=== PATIENT | male | born 1960 | race Caucasian/White ===

== ENCOUNTER → 2017-05-20 10:18 | Outpatient (CLI) | payer MEDICARE, MEDICAID, BC, SELFPAY ==
[2017-05-20 13:38] LABS: PSA,Total - Annual Screen 0.96 ng/mL (0.00-4.00)
== END ==
PROVIDERS: Family Provider Family Medicine; PCP Family Medicine; Visit Provider Family Medicine
DX: Z12.5 Encounter for screening for malignant neoplasm of prostate (principal)
CPT/HCPCS: 36415; 84153; G0103

== ENCOUNTER → 2017-05-25 11:58 | Outpatient (CLI) | payer MEDICARE, MEDICAID, SELFPAY ==
--- NOTE | 2017-05-25 11:04 | US_ITS ---
STUDY: ULTRASOUND - URINARY BLADDER REASON FOR EXAM: Male, 56 years old. Incomplete bladder emptying. TECHNIQUE: Ultrasound evaluation of the urinary bladder was performed with real-time and static landers-scale imaging. COMPARISON: None. FINDINGS: There is no right UVJ calculus. There is a visualized right ureteral jet. There is no left UVJ calculus. There is a visualized left ureteral jet. The distended volume of the urinary bladder is 387 ml. The empty volume of the urinary bladder is 177 ml. The bladder wall is within normal limits. The bladder wall measures 3.5. There is no demonstrated bladder wall mass lesion. There are no demonstrated bladder calculi. US/Post Void Residual Bladder IMPRESSION: Moderate postvoid residual. Electronically Signed: Pranav Guerin MD at 7:03 EST , Service support ,
== END ==
PROVIDERS: Family Provider Family Medicine; PCP Family Medicine; Visit Provider Family Medicine
DX: R33.9 Retention of urine, unspecified (principal)
CPT/HCPCS: 51798

== ENCOUNTER → 2017-07-13 07:57 | Outpatient (CLI) | payer MEDICAID, BC, SELFPAY | PROVIDERS: Family Provider Family Medicine; PCP Family Medicine; Visit Provider Surgery | DX: Z00.00 Encounter for general adult medical examination without abnormal findings (principal) ==

== ENCOUNTER → 2017-08-24 16:42 | Outpatient (CLI) | payer MEDICARE, MEDICAID, SELFPAY ==
--- NOTE | 2017-08-24 16:40 | RAD_ITS ---
STUDY: X-RAY - LEFT KNEE REASON FOR EXAM: Left knee pain. TECHNIQUE: 3 view(s) of the knee. COMPARISON: None. FINDINGS: Normal visualized distal femur. Normal visualized proximal tibia and fibula. Normal proximal tibiofibular articulation. There is an incidental bone island in the medial aspect of the proximal tibial diametaphysis. Normal medial femorotibial compartment. Normal lateral femorotibial compartment. Normal patellofemoral articulation. There is a small joint effusion. RAD/Knee 3 Views IMPRESSION: Small joint effusion. Electronically Signed: Chance Oneil MD at 14:32 EDT Tel , Service support ,
--- NOTE | 2017-08-24 16:42 | DT_ITS ---
This patient was seen during an EMR downtime August 24, 2017 - August 31, 2017. This patient may have a combination of paper and electronic documentation or all paper documentation. All documentation is viewable within the e-chart portion of [facility] for each patient visit.
== END ==
PROVIDERS: Family Provider Family Medicine; PCP Family Medicine; Visit Provider Family Medicine
DX: M25.562 Pain in left knee (principal); M25.462 Effusion, left knee
CPT/HCPCS: 73562

== ENCOUNTER 2017-09-24 14:24 | Emergency (ER) | payer MEDICARE, MEDICAID, SELFPAY ==
[2017-09-24 14:24] VITALS: BP 105/75; PULSE 66; RESP 16; TEMP 36.6; O2SAT 98; BMI 27.3
--- NOTE | 2017-09-24 14:30 | RAD_ITS ---
STUDY: X-RAY - RIGHT FOOT CLINICAL: Male, 56 years old. Palpable lump along the medial aspect of the foot. TECHNIQUE: 4 view(s) of the foot. COMPARISON: None. FINDINGS: There is a plantar calcaneal spur. Normal visualized subtalar, talonavicular, calcaneocuboid, tarsal and tarsometatarsal articulations. Normal metatarsi. There is degenerative arthrosis of the metatarsophalangeal joint of the hallux . Normal tibial and fibular sesamoid bones. Normal interphalangeal joint of the great toe. Normal phalanges of the great toe. Normal second through fifth metatarsophalangeal joints. Normal interphalangeal joints and phalanges of the lesser toes. Soft tissue swelling. RAD/Foot min 3 Views IMPRESSION: Small plantar spur. Soft tissue swelling. Electronically Signed: Martín Escudero MD at 14:59 EDT Tel [phone], Service support ,
--- NOTE | 2017-09-24 15:28 | ED.VISSUMM ---
- ER Visit Summary Date of Service: 09/24/17 Chief Complaint: Right foot pain History of Present Illness: The patient is a [address] Hoyos. He reports he has pain on the medial side of his right foot that began approximately 2 weeks ago. No trauma. No fall, MVA, or change in activity. Describes a sharp, stabbing pain that is worsened by bending or walking. Is relieved by [place]. The pain is 4-10 at worst and is pain-free currently. No history of gout. Physical Examination: Vitals: Stable. Afebrile. General: Well-nourished and well-developed. Head: Normocephalic atraumatic. Neck: Supple, no lymphadenopathy. No JVD. Nontender. Cardiovascular: Regular rate and rhythm. No murmurs. Respiratory: No respiratory distress. Clear to auscultation bilaterally. Abdominal: Soft, nontender, nondistended, normal bowel sounds. No guarding, rebound, or peritoneal signs. Back: Nontender. Extremities: Over the middle third of the medial side of his first metatarsal there is a hard subcutaneous mass that is mildly tender to palpation. There is no erythema or warmth to suggest infection. He has no pain with movement of his first MTP joint. No pain with palpation of the joint. There is no overlying erythema or warmth here either.. Skin: Normal color, no rash. Neurologic: Alert and oriented ?3. Cranial nerves II through XII are intact. Normal strength and sensation. Psych: Normal affect. Test Results: Right foot x-ray shows chronic changes and no acute disease. Emergency Department Course and Treatment: Patient was treated with naproxen and is resting comfortably. Treatment Plan: Had a prolonged discussion with the patient at this time I do not have an explanation for his pain. This could be a gouty tophi. However, I do not think that steroids are in his best interest. He will be discharged on naproxen instructed follow-up Dr. Isaacs in 5-7 days for another exam. Return to the emergency department for any worsening symptoms. Disposition: To home in improved and stable condition. Impression: 1. Right foot pain, uncertain cause. This note was generated with [employer] software. It may contain incorrect words, spelling, and punctuation that were not noted in review of the chart prior to signing ED Disposition - Plan for ED Patient: Disposition: Home or Assisted Living Chief Complaint: Lower Extremity Injury Instructions: Treating Arthritis in the Foot Prescriptions: Naproxen [Naprosyn] 500 mg PO BID #14 tablet Referrals: Jonathan Hoyos MD [Primary Care Provider] - Scottie Isaacs DPM [STAFF PHYSICIAN] - 5-7 Days
[2017-09-24] MEDS: Naproxen 500 MG Tablet PO (15:44)
--- NOTE | 2017-09-24 15:45 | ED.RN ---
PT GIVEN WRITTEN AND VERBVAL DISCHARGE INSTRUCTIONS, AND EDUCATED ON HOME GOING PRESCRIPTIONS. PT VERBALIZES UNDERSTANDING. QUESTIONS ABOUT PT FOLLOW UP ADDRESSED. PT DENIES ANY FURTHER QUESTIONS. AMBULATES OUT OF DEPT WITH SPOUSE.
== END 2017-09-24 15:46 | disposition home or self-care (01) ==
LOC: ED 15:38
PROVIDERS: Emergency Provider Emergency Medicine; Family Provider Family Medicine; PCP Family Medicine
DX: M25.571 Pain in right ankle and joints of right foot (principal); I10 Essential (primary) hypertension; M19.90 Unspecified osteoarthritis, unspecified site; M54.9 Dorsalgia, unspecified; G89.29 Other chronic pain; Z79.891 Long term (current) use of opiate analgesic; Z79.899 Other long term (current) drug therapy; Z72.0 Tobacco use
CPT/HCPCS: 73630; 99283

== ENCOUNTER → 2017-10-23 10:14 | Outpatient (CLI) | payer MEDICARE, MEDICAID, SELFPAY ==
--- NOTE | 2017-10-23 10:45 | MRI_ITS ---
STUDY: MRI RIGHT FOREFOOT WITHOUT CONTRAST REASON FOR EXAM: Male, 57 years old. Painful lump at the first MTP joint TECHNIQUE: Standardized fat and water weighted pulse sequences were obtained in all 3 orthogonal planes. COMPARISON: X-ray September 24, 2017 FINDINGS: There is degenerative arthrosis of the metatarsophalangeal joint of the hallux. There is a lobular 1.5 x 0.9 cm fluid signal intensity mass consistent with cyst in the subcutaneous soft tissues on the medial aspect adjacent to the first metatarsal head neck junction, corresponding to the palpable abnormality. Normal tibial and fibular sesamoids, with normal sesamoids-first metatarsal articulations. Normal interphalangeal joint of the hallux. Normal proximal and distal phalanges of the great toe. Normal medial and lateral heads of the flexor hallucis brevis tendons. Normal flexor and extensor hallucis longus tendons. Normal second through fifth metatarsophalangeal (MTP) joints. Normal interphalangeal joints of the second through fifth toes. Normal proximal, middle and distal phalanges of the second through fifth toes. Normal first through fourth intermetatarsal spaces. Normal flexor and extensor tendons of the second through fifth toes. Normal visualized metatarsi. Normal intrinsic muscles of the forefoot. MRI/Lower Ext/No Jt/w/o IMPRESSION: Lobular cystic lesion suggesting ganglion proximal to the first MTP joint. No fracture. Electronically Signed: Constantino Sheffield MD at 12:08 EDT , Service support ,
== END ==
PROVIDERS: Family Provider Family Medicine; PCP Family Medicine; Visit Provider Podiatrist
DX: M70.871 Other soft tissue disorders related to use, overuse and pressure, right ankle and foot (principal); M79.9 Soft tissue disorder, unspecified; M79.671 Pain in right foot
CPT/HCPCS: 73718

== ENCOUNTER 2018-02-14 12:59 | Emergency (ER) | payer MEDICARE, MEDICAID, SELFPAY ==
[2018-02-14 12:59] VITALS: BP 143/82; PULSE 59; RESP 22; TEMP 36.7; O2SAT 100; BMI 30.7
--- NOTE | 2018-02-14 13:22 | ED.VISSUMM ---
- ER Visit Summary Date of Service: 02/14/18 Chief Complaint: Back pain History of Present Illness: The patient is a 57 M who presents with chronic back pain that has been getting worse over the past few days. Patient states he missed his recent appointment with his pain management physician and is unable to get his [place] prescription refilled until February. Patient denies any new injury. Patient denies any radiation of the pain. Patient denies any paresthesias or weakness. Patient denies any bowel or bladder changes. Physical Examination: Vital signs are stable. Patient is afebrile. Patient is in no acute distress. Musculoskeletal exam reveals tenderness of the lumbar spine and paraspinal muscles. There is no bony crepitance or step-off. There is no edema or ecchymosis. Range of motion was limited all motions of the lumbar spine secondary to pain. Strength 5/5 bilateral. There are no sensory deficits noted. The remaining physical exam is within normal limits. Emergency Department Course and Treatment: Patient drove himself to the emergency department and is unable to find a ride home. Therefore, I am unable to give him a dose of his [place] here. I offered the patient injection of Toradol but he did not want any injections. Patient was given a dose of Naprosyn here. Patient was instructed to use ice to the area. Patient was instructed to call his pain management physician tomorrow to see if he could get in earlier than his next appointment. Patient understood and was agreeable with the plan. All questions were answered. Disposition: Discharged home Impression: Chronic low back pain This note was generated with [employer] dictation software. It may contain incorrect words, spelling, and punctuation that were not noted in review of the chart prior to signing ED Disposition - Plan for ED Patient: Disposition: Home or Assisted Living Chief Complaint: Med Refill Diagnosis: Chronic low back pain Instructions: Med Refill Referrals: Jonathan Hoyos MD [Primary Care Provider] -
--- NOTE | 2018-02-14 13:27 | ED.DCSUM_ITS ---
- ER Visit Summary Date of Service: 02/14/18 Chief Complaint: Back pain History of Present Illness: The patient is a 57 M who presents with chronic back pain that has been getting worse over the past few days. Patient states he missed his recent appointment with his pain management physician and is unable to get his [place] prescription refilled until February. Patient denies any new injury. Patient denies any radiation of the pain. Patient denies any paresthesias or weakness. Patient denies any bowel or bladder changes. Physical Examination: Vital signs are stable. Patient is afebrile. Patient is in no acute distress. Musculoskeletal exam reveals tenderness of the lumbar spine and paraspinal muscles. There is no bony crepitance or step-off. There is no edema or ecchymosis. Range of motion was limited all motions of the lumbar spine secondary to pain. Strength 5/5 bilateral. There are no sensory deficits noted. The remaining physical exam is within normal limits. Emergency Department Course and Treatment: Patient drove himself to the emergency department and is unable to find a ride home. Therefore, I am unable to give him a dose of his [place] here. I offered the patient injection of Toradol but he did not want any injections. Patient was given a dose of Naprosyn here. Patient was instructed to use ice to the area. Patient was instructed to call his pain management physician tomorrow to see if he could get in earlier than his next appointment. Patient understood and was agreeable with the plan. All questions were answered. Disposition: Discharged home Impression: Chronic low back pain This note was generated with [employer] dictation software. It may contain incorrect words, spelling, and punctuation that were not noted in review of the chart prior to signing ED Disposition - Plan for ED Patient: Disposition: Home or Assisted Living Chief Complaint: Med Refill Diagnosis: Chronic low back pain Instructions: Med Refill Referrals: Jonathan Hoyos MD [Primary Care Provider] -
[2018-02-14] MEDS: Naproxen 500 MG Tablet PO (13:29)
[2018-02-14 13:47] VITALS: BP 124/77; PULSE 81; RESP 16; O2SAT 97
== END 2018-02-14 13:48 | disposition home or self-care (01) ==
LOC: ED 13:45
PROVIDERS: Emergency Provider Emergency Medicine; Family Provider Family Medicine; PCP Family Medicine
DX: M54.5 Low back pain (principal); G89.29 Other chronic pain; I10 Essential (primary) hypertension; Z79.899 Other long term (current) drug therapy; F17.200 Nicotine dependence, unspecified, uncomplicated
CPT/HCPCS: 99283

== ENCOUNTER 2018-05-08 18:03 | Emergency (ER) | payer MEDICARE, SELFPAY ==
[2018-05-08 18:05] VITALS: BP 90/55; PULSE 58; RESP 16; TEMP 36.4; O2SAT 99; BMI 27.3
[2018-05-08] MEDS: HYDROcodone Bitartrate/Apap 5/325 Tablet PO (18:43)
--- NOTE | 2018-05-08 18:53 | RAD_ITS ---
STUDY: X-RAY - RIGHT FOOT CLINICAL: Male, 57 years old. Right foot pain TECHNIQUE: 3 view(s) of the foot. COMPARISON: None. FINDINGS: Normal talus, calcaneus, and tarsal bones. Normal visualized subtalar, talonavicular, calcaneocuboid, tarsal and tarsometatarsal articulations. Normal metatarsi. There is degenerative arthrosis of the metatarsophalangeal joint of the hallux . Normal tibial and fibular sesamoid bones. Normal interphalangeal joint of the great toe. Normal phalanges of the great toe. Normal second through fifth metatarsophalangeal joints. Normal interphalangeal joints and phalanges of the lesser toes. The soft tissue structures are unremarkable. RAD/Foot min 3 Views IMPRESSION: No fracture malalignment. Degenerative changes of the first MTP joint. Electronically Signed: David Paredes MD at 19:18 EST , Service support ,
--- NOTE | 2018-05-08 19:25 | ED.VISSUMM ---
- ER Visit Summary Date of Service: 05/08/18 Chief Complaint: Right foot injury History of Present Illness: The patient is a 57 M he states he dropped a sofa on his foot while he was trying to move furniture. He was not wearing shoes at the time. He is complaining of pain to the first MTP joint of his right foot. He did take 800 mg of Motrin prior to arrival. Physical Examination: Vital signs in triage include a blood pressure of 90/55. At the time of my examination blood pressure is 116/74. Patient is sitting upright in bed no acute distress. Right lower extreme examination is significant for tenderness palpation of the MTP joint. There is mild edema. No erythema or ecchymosis. He has normal cap refill and sensation distally. There is no tenderness at the ankle or knee. Test Results: Right foot x-rays showed no fracture. Degenerative arthritis is noted at the first MTP joint. Emergency Department Course and Treatment: Patient was given 1 tab of [place] here. X-ray results are discussed with him. Jose wrap is applied. He will use Tylenol or ibuprofen at home for pain. Treatment Plan: [] Disposition: Discharge Impression: Crush injury right foot This note was generated with [employer] dictation software. It may contain incorrect words, spelling, and punctuation that were not noted in review of the chart prior to signing ED Disposition - Plan for ED Patient: Referrals: Glenn Parekh MD [Primary Care Provider] -
--- NOTE | 2018-05-08 19:26 | ED.DEP ---
ED Disposition - Plan for ED Patient: Disposition: Home or Assisted Living Instructions: ED Crush Injury Toe No Fx Referrals: Glenn Parekh MD [Primary Care Provider] - 1 Week if not improving
[2018-05-08 19:38] VITALS: RESP 18
== END 2018-05-08 19:39 | disposition home or self-care (01) ==
PROVIDERS: Emergency Provider Emergency Medicine; Family Provider Family Medicine; PCP Family Medicine
DX: S97.81XA Crushing injury of right foot, initial encounter (principal); W22.8XXA Striking against or struck by other objects, initial encounter; Y93.9 Activity, unspecified; Y92.9 Unspecified place or not applicable; M19.071 Primary osteoarthritis, right ankle and foot; I10 Essential (primary) hypertension; Z79.899 Other long term (current) drug therapy; Z87.891 Personal history of nicotine dependence
CPT/HCPCS: 73630; 99283

== ENCOUNTER 2018-12-10 05:20 | Inpatient (IN) | payer MEDICARE, SELFPAY ==
[2018-12-10] VITALS (39 sets, daily range): BP systolic 66–214; BP diastolic 35–98; PULSE 59–112; RESP 14–34; TEMP 35.5–38.3; O2SAT 65–100; BMI 28.5; BMI 27.3
[2018-12-10] MEDS: Etomidate 20 MG/10 ML Vial 30 MG IV (05:27)
[2018-12-10] MEDS: Succinylcholine Chloride 200 MG/10 ML Vial 120 MG IV (05:28)
--- NOTE | 2018-12-10 05:29 | ED.RN ---
120 MG SUCC GIVEN
--- NOTE | 2018-12-10 05:30 | ED.RN ---
patient unable to answer most questions about event. patient is post cardiac arrest information obtained from family
--- NOTE | 2018-12-10 05:39 | CT_ITS ---
We are attempting to reach an attending provider to discuss findings. An addendum with communication details will be sent when the communication is complete. STUDY: CT BRAIN WITHOUT CONTRAST REASON FOR EXAM: Male, 58 years old. Full arrest, combative RADIATION DOSAGE (If Supplied By Facility): CTDIvol = ( 44.99 ) mGy, DLP = ( 863.60 ) mGycm TECHNIQUE: Transaxial CT imaging of the brain was performed without administration of intravenous contrast material. Individualized dose optimization techniques were used for this CT. COMPARISON: No relevant priors. FINDINGS: Normal soft tissue structures. Normal calvarium. Partially imaged endotracheal tube. Mild effacement of sulcal and gyral pattern. Possible mild edema. Normal white matter tracts of the cerebral hemispheres. Normal basal ganglia and thalami. Normal brainstem. Normal cerebellum. There is no intracranial hemorrhage. There are no findings of an acute ischemic infarction. There is mucosal opacification most pronounced in the left sphenoid, frontal, and posterior ethmoid sinuses. No air-fluid levels. The bilateral mastoid air cells are clear. CT/Brain/Head without Contrast IMPRESSION: Possible mild edema. Possible anoxic brain injury. No acute hemorrhage or overt ischemic changes on submitted images. These findings were discussed on the telephone with Dr. Guthrie at 608 hrs. EST on 12/10/2018. Electronically Signed: Urvashi Arnold MD at 6:12 EDT , Service support ,
--- NOTE | 2018-12-10 05:40 | RAD_ITS ---
STUDY: X-RAY CHEST REASON FOR EXAM: Male, 58 years old. Endotracheal and enteric tube placement. TECHNIQUE: Single AP portable view of the chest. COMPARISON: None. FINDINGS: Endotracheal tube tip approximately 4.5 cm superior to the adamaris. The enteric tube courses inferior to the left diaphragm, its tip is not included or visualized. There are superimposed monitor leads. Diffuse bilateral vascular prominence, mild interstitial prominence, areas of hyperinflation. There is no demonstrated pleural abnormality. Normal size heart. Normal mediastinum and max. Normal visualized pulmonary arteries. Normal visualized aortic arch and descending thoracic aorta. Normal visualized thoracic spine. Normal visualized ribs, clavicles, and shoulders. There is no demonstrated abnormality of the visualized soft tissue structures of the upper abdomen. RAD/Chest 1 View (Portable) IMPRESSION: Probable vascular congestion. Possible underlying component of COPD. Lines appear in good position. Electronically Signed: Urvashi Arnold MD at 6:01 EDT , Service support ,
--- NOTE | 2018-12-10 05:40 | EKG12_ITS ---
Test Reason : STEMI Blood Pressure : / mmHG Vent. Rate : 098 BPM Atrial Rate : 098 BPM P-R Int : 146 ms QRS Dur : 088 ms QT Int : 296 ms P-R-T Axes : 030 064 063 degrees QTc Int : 377 ms Normal sinus rhythm ST elevation consider anterolateral injury or acute infarct ACUTE [place] / STEMI Abnormal ECG Confirmed by ROBERTO ANDERSON, EARL ([id number]), primer expeditor and drier RICHARD BRUNER ([id number]) on 12/13/2018 9:20:14 AM Referred By: Peter Vazquez Confirmed By:EARL MEJIA MD
[2018-12-10] MEDS: Propofol 10MG/Ml 1,000 MG/100 ML Bottle 5.6 MG CONT INF (05:50)
[2018-12-10 05:51] LABS: Absolute Lymphocyte Count 8.08 X10^3/uL (0.83-4.51); Absolute Neutrophil Count 8.8 X10^3/uL (2.0-7.7); Basophil# 0.22 X10^3/uL; Basophil% 1.1 % (0-1); Eosinophil# 0.63 X10^3/uL; Eosinophils% 3.3 % (0-5); Hematocrit 46.6 % (40-54); Hemoglobin 15.2 g/dL (13.0-16.5); Lymphocyte # 8.08 X10^3/ul (4.0); Lymphocyte % 42.1 % (19-41); Mean Corp Hgb Conc 32.6 g/dL (32-36); Mean Corpuscular Hgb 31.6 pg (27.0-32.0); Mean Corpuscular Volume 96.9 fL (80-94); Monocyte# 1.06 X10^3/uL; Monocyte% 5.5 % (0-10); NRBC Flagged by Analyzer 0 % (0-5); Neutrophil # 8.81 X10^3/uL (2.7-7.7); Neutrophil % 45.9 % (47-70); POSITIVE DIFFERENTIAL YES; POSITIVE MORPHOLOGY YES; Platelet Count 291 K/mm3 (150-450); RBC Distribution Width CV 13.1 % (11.6-14.6); RBC Distribution Width SD 47.5 fl (35.1-43.9); Red Blood Count 4.81 M/mm3 (4.6-6.2); White Blood Count 19.2 K/mm3 (4.4-11.0)
[2018-12-10] MEDS: TICAGRELOR 90 MG TABLET 180 MG GT (05:52)
[2018-12-10 05:53] LABS: Differential Indicated SCAN CRITERIA MET
[2018-12-10 05:56] LABS: Prothrombin Time (Protime)PT. 12.6 SECONDS (11.7-14.9)
[2018-12-10] MEDS: Heparin Injection (Vial) 5,000 UNIT/ML VIAL 4000 UNIT IV (06:10)
[2018-12-10 06:15] LABS: Differential Comment SCANNED; Reactive Lymphocyte 3+
[2018-12-10 06:18] LABS: Anion Gap 12 (5-15); BUN 19 mg/dL (7-18); BUN/Creat Ratio 12.1 RATIO (10-20); Calcium,Total 8.1 mg/dL (8.5-10.1); Chloride 110 mmol/L (98-107); Creatinine, Serum 1.57 mg/dL (0.70-1.30); EST Glomerular Filtration Rate 49 mL/min (>60); Est Glom Filt Rate - Afr Amer 59 mL/min (>60); Estimated Creatinine Clearance 55.29 ml/min; Glucose 239 mg/dL (74-106); Potassium 3.2 mmol/L (3.5-5.1); Sodium Level 141 mmol/L (136-145)
--- NOTE | 2018-12-10 06:30 | ED.DCSUM_ITS ---
- ER Visit Summary Date of Service: 12/10/18 Chief Complaint: Unresponsive History of Present Illness: The patient is a 58 M presenting per EMS after being found unresponsive. Per patient's he has been complaining of chest pain intermittently over the past couple of days. During sexual intercourse he complained of chest pain around 1130pm. She wanted to call EMS and he refused. They went to sleep. She states she later woke up with him having snoring respirations. EMS was called and rescue breathing was started. On their arrival he was in ventricular fibrillation and was shocked x1. No medications were given. On arrival to the ED, patient is breathing on his own and combative. Physical Examination: Blood pressure 214/98, heart rate 112, 98% with bagging respirations. Patient is afebrile. HEENT exam PERRL Neck is supple. Lungs are clear and equal bilaterally. Heart is regular rate and tachycardic Abdomen is soft nontender nondistended. Extremities are unremarkable. Skin is warm and diaphoretic Patient is combative and not following commands, moving all extremities Remainder of exam is unremarkable. Emergency Department Course and Treatment: EKG shows anterolateral ST elevation VT. Patient was intubated using RSI. He was given etomidate and succinylcholine. 7.5 ET tube was placed through the cords. Equal breath sounds bilaterally. Discussed with Dr. Vazquez and patient will be taken emergently to the [facility]. Due to his mental status and combativeness on arrival, CT head was obtained prior to [facility]. CT head shows possible mild edema. Possible anoxic brain injury. No acute hemorrhage or overt ischemic changes on submitted images. Patient was given Brilinta and heparin. Patient was taken to the [facility] per Dr. Vazquez. Disposition: Admission Impression: ST elevation VT, respiratory failure, possible anoxic brain injury This note was generated with [employer] dictation software. It may contain incorrect words, spelling, and punctuation that were not noted in review of the chart prior to signing ED Disposition - Plan for ED Patient: Referrals: Glenn Parekh MD [Primary Care Provider] -
[2018-12-10] MEDS: HEPARIN/D5w 25,000 UNITS 25,000 UNITS/250 ML IV.SOLN. 8 UNITS IV (07:02)
[2018-12-10 08:01] LABS: ACT Activated Clotting Time 241 sec (74-137)
[2018-12-10 08:01] LABS: ACT Activated Clotting Time 180 sec (74-137)
[2018-12-10 08:01] LABS: Base Excess -12 mmol/L (-2 to +2); Bicarbonate 16.1 mmol/L (22-26); Blood Gas Specimen Type ART; PO2 285 mmHG (75-100); SO2 100 % (95-99); Total Carbon Dioxide 17 mmol/L; pCO2 41.3 mmHg (35-45)
[2018-12-10 08:16] LABS: Bedside Glucose 206 mg/dL (70-110)
--- NOTE | 2018-12-10 08:33 | HP.PCM_ITS ---
Problem List (1) STEMI (ST elevation myocardial infarction) Status: Acute Qualifiers: Involved coronary artery: LAD coronary artery Qualified Code(s): I21.02 - ST elevation (STEMI) myocardial infarction involving left anterior descending coronary artery (2) Ventricular fibrillation Status: Acute (3) Metabolic acidosis Status: Acute (4) Metabolic encephalopathy Status: Acute History of Present Illness Date of Admission: 12/10/18 Chief Complaint: chest pain. The patient is a 58 year old M Presents after being found unresponsive. Earlier, patient was having chest pain over the preceding few days and then was having intercourse and was having chest pain around 1130. His advised EMS but he refused. Went to sleep and then she awoke to him having sonorous respirations. EMS was contacted and patient was found to be in atrial fibrillation and did receive a shock. Per ER documentation did not receive any additional medications. Patient was combative but breathing on his own but was intubated in the emergency room. Patient was taken to the [facility] as he was found to have ST elevation myocardial infarction and had drug-eluting stent placed to the LAD. Balloon pump was placed. Patient did undergo a emergent CAT scan for possible evaluation of stroke. It did show mild edema. Patient is unresponsive as he is intubated and sedated. No family is currently present. History is obtained through Dr. Vazquez as well as the emergency room documentation.[] Past Medical History Allergies No Known Allergies Allergy (Verified 12/10/18 05:27) Smoking Status: Heavy Smoker (>10/day) Tobacco Use: Cigarettes Review of Systems Comment: Patient intubated and sedated and on no prior documentation of any past medical history earlier documentation, therefore past medical history, past surgical history, family history, social history and review of systems are unobtainable at this time. VTE Information - Inpt Only VTE Present on Admission: No VTE Mechan Device Prophylaxis: SCD's VTE Pharm Prophylaxis ordered?: No Reason prophylaxis not ordered:: Procedure Not Indicated Patient Problems: Active and Suspected Problems STEMI (ST elevation myocardial infarction) (Acute) Ventricular fibrillation (Acute) Metabolic acidosis (Acute) Metabolic encephalopathy (Acute) - Physical Exam General: - - Intubated and sedated on the ventilator. HEENT: Atraumatic, Normocephalic, - - Narrowed pupils. No scleral icterus Oral: - - Tracheal tube in place Neck: No Nodes, Trachea Midline Lungs: Normal air movement, - - Course breath sounds bilaterally Cardiovascular: Regular rate, Regular Rhythm, - - Loon pump auscultated Abdomen: Soft, Non Tender, Non-Distended, - - balloon pump auscultated Extremities: No edema, No Calf Tenderness, Diminished Peripheral Pulses Skin: - - Macular rash slightly raised in the groin bilaterally Musculoskeletal: No Tenderness to Palpation of Joints or Extremities, No Muscle Wasting Neurological: Deep Tendon Reflexes 2+/4 and Symmetrical, - - No clonus Vital Signs Temp Pulse Resp BP Pulse Ox 35.5 C L 74 20 H 178/98 H 95 12/10/18 05:20 12/10/18 06:00 12/10/18 06:00 12/10/18 06:00 12/10/18 06:45 Oxygen Flow Rate (L/min) 15 Oxygen Delivery Method Ambu-Bag Weight: 92.8 kg Body Mass Index (BMI) 28.5 Finger Stick Blood Glucose 206 Laboratory Tests Past 24 Hrs 12/10/18 12/10/18 12/10/18 05:40 05:40 05:40 WBC 19.2 H RBC 4.81 Hgb 15.2 Hct 46.6 MCV 96.9 H MCH 31.6 MCHC 32.6 RDW Std Deviation 47.5 H RDW Coeff of [place] 13.1 Plt Count 291 MPV 12.0 Immature Gran % (Auto) 2.100 H Neut % (Auto) 45.9 L Lymph % (Auto) 42.1 H Morrow % (Auto) 5.5 Eos % (Auto) 3.3 Baso % (Auto) 1.1 H Absolute Neuts (auto) 8.8 H Absolute Lymphs (auto) 8.08 H Nucleated RBC % 0 Differential Comment SCANNED Reactive Lymphocytes 3+ PT 12.6 INR 1.0 APTT 27.0 Activated Clotting Time Specimen Type pH Bicarbonate Actual POC Total CO2 Base Excess O2 Saturation ABG pCO2 ABG pO2 Sodium 141 Potassium 3.2 L Chloride 110 H Carbon Dioxide 19.0 L Anion Gap 12 BUN 19 H Creatinine 1.57 H Estim Creat Clear Calc 55.29 Est GFR (MDRD) Af Amer 59 L Est GFR (MDRD) Non-Af 49 L BUN/Creatinine Ratio 12.1 Glucose 239 H Calcium 8.1 L Troponin I 0.617 H* 12/10/18 12/10/18 12/10/18 06:18 06:55 07:02 WBC RBC Hgb Hct MCV MCH MCHC RDW Std Deviation RDW Coeff of [place] Plt Count MPV Immature Gran % (Auto) Neut % (Auto) Lymph % (Auto) Morrow % (Auto) Eos % (Auto) Baso % (Auto) Absolute Neuts (auto) Absolute Lymphs (auto) Nucleated RBC % Differential Comment Reactive Lymphocytes PT INR APTT Activated Clotting Time 180 H 241 H Specimen Type ART pH 7.20 L Bicarbonate Actual 16.1 L POC Total CO2 17 Base Excess -12 L O2 Saturation 100 H ABG pCO2 41.3 ABG pO2 285 H Sodium Potassium Chloride Carbon Dioxide Anion Gap BUN Creatinine Estim Creat Clear Calc Est GFR (MDRD) Af Amer Est GFR (MDRD) Non-Af BUN/Creatinine Ratio Glucose Calcium Troponin I POC Glucose 12/10/18 05:38 POC Glucose 206 H Initial EKG showed segment ST elevation in anterior and lateral leads that V2, V3 and V4. Assessment/Plan All Active Problems STEMI (ST elevation myocardial infarction) (Acute) Ventricular fibrillation (Acute) Metabolic acidosis (Acute) Metabolic encephalopathy (Acute) 1. STEMI * Status post drug-eluting stent to the LAD * Cardiology following * On balloon pump * Patient did receive heparin, Integrilin, aspirin Brilinta * We will continue with aspirin, Brilinta and atorvastatin * Patient continue with balloon pump for now. Discussed with Dr. Vazquez, plan is to continue with the balloon pump until the * Patient will need to have lifelong tobacco cessation * Heparin drip while the balloon pump is in place 2. Acute respiratory failure * Intubated in the emergency room. * Vent management per critical care medicine * Patient will be on propofol but will also add fentanyl as patient seems to need extra sedation. This is very important as patient was earlier confused and to maintain the balloon pump so that it is not compromised. 3. Metabolic encephalopathy * Head CT showed some mild edema that could be an anoxic encephalopathy * Is unclear how long the patient was down the patient was noted to have sonorous respirations if * Patient did receive some CPR in the field by family, is unclear how effective that CPR was and patient did receive a shock by EMS * Patient will need repeat imaging to assess the degree of edema if it still persists at a later point preferably when he is more hemodynamically stable, however, if patient's condition does deteriorate then that not be performed much sooner. 4. VTE prophylaxis: Patient is anticoagulated but given the balloon pump and being critically ill will also add SCDs. 5. Groin rash * May be contact dermatitis from the Betadine/chlorhexidine that was used to sterilize his groin for the heart catheterization. The area has been demarcated with a marker. Will monitor but to hold off on antibiotics at this time. Code Visit Inpatient E&M: [id number] Init Hosp L3
--- NOTE | 2018-12-10 08:35 | EKG12_ITS ---
Test Reason : AM Blood Pressure : / mmHG Vent. Rate : 071 BPM Atrial Rate : 071 BPM P-R Int : 138 ms QRS Dur : 086 ms QT Int : 480 ms P-R-T Axes : 023 078 114 degrees QTc Int : 521 ms Normal sinus rhythm Anteroseptal infarct , age undetermined T wave abnormality, consider lateral ischemia Prolonged QT Abnormal ECG Confirmed by SILVIA ANDERSON, MIKKI ([id number]), assistant film editor RICHARD BRUNER ([id number]) on 12/15/2018 11:09:03 AM Referred By: Peter Vzaquez Confirmed By:MIKKI VEGA MD
--- NOTE | 2018-12-10 08:35 | ECHOD_ITS ---
Reason For Study: CAD/ASHD Procedure This was a 2D Doppler, Color Flow transthoracic echocardiogram. Exam performed portable in ICU/CCU. Left Ventricle Normal size and thickness. The estimated ejection fraction is 35-40 %. Anterio-Basal: Akinetic. Basal anteroseptal: Akinetic. Mid-Anterior : Akinetic. Right Ventricle Normal size and thickness. Normal systolic function. Atria Normal left atrium. Normal right atrium. Normal atrial septum. Mitral Valve The mitral valve is structurally normal. No prolapse or stenosis seen. Tricuspid Valve Normal tricuspid valve. Trivial tricuspid valve insufficiency. Right ventricular systolic pressure estimated to be 22 mmHg. Aortic Valve Trisinus/trileaflet aortic valve. Normal aortic valve. Pulmonic Valve Normal pulmonic valve. Great Vessels Normal aortic root. Normal arch. The inferior vena cava is dilated. No collapse of the inferior vena cava. Pericardium/Pleural No pericardial effusion. MMode/2D Measurements & Calculations LVIDd: 4.3 cm IVSd: 1.1 cm LA dimension: 3.6 cm LVIDs: 3.0 cm LVPWd: 1.1 cm FS: 29.5 % LAV(MOD-bp): 52.8 ml LVAd ap4: 29.4 cm2 SV(MOD-sp4): 38.9 ml LAV(MOD-bp) Indexed: 24.8 ml/m2 EDV(MOD-sp4): 89.7 ml LAV(MOD-sp2): 47.6 ml EDV(sp4-el): 91.3 ml LAV(MOD-sp4): 50.4 ml LVAs ap4: 21.9 cm2 ESV(MOD-sp4): 50.7 ml ESV(sp4-el): 52.9 ml EF(MOD-sp4): 43.4 % EF(sp4-el): 42.1 % SV(sp4-el): 38.5 ml LA A4 area: 19.4 cm2 RA A4 area: 15.9 cm2 Time Measurements MV dec time: 0.18 sec Doppler Measurements & Calculations MV E max derrick: 70.2 cm/sec Lat Peak E' Derrick: 7.9 cm/sec Med Peak E' Derrick: 4.9 cm/sec MV A max derrick: 51.3 cm/sec E/E' lat: 8.8 E/E' med: 14.3 MV E/A: 1.4 MV V2 max: 69.6 cm/sec MV P1/2t max derrick: 68.5 cm/sec Ao V2 max: 101.1 cm/sec MV max P.9 mmHg MV P1/2t: 88.8 msec Ao max P.1 mmHg MV V2 mean: 34.8 cm/sec Ao V2 mean: 66.5 cm/sec MV mean P.58 mmHg MV dec slope: 225.9 cm/sec2 Ao mean P.1 mmHg MV V2 VTI: 21.2 cm MVA(P1/2t): 2.5 cm2 Ao V2 VTI: 15.9 cm LV V1 max: 89.1 cm/sec PA V2 max: 57.8 cm/sec TR max derrick: 206.1 cm/sec LV V1 max P.2 mmHg TR max P.0 mmHg LV V1 mean P.4 mmHg LV V1 mean: 53.0 cm/sec LV V1 VTI: 16.8 cm Interpretation Summary The estimated ejection fraction is 35-40 %. Trivial tricuspid valve insufficiency. Right ventricular systolic pressure estimated to be 22 mmHg. Anterio-Basal: Akinetic. Basal anteroseptal: Akinetic. Mid-Anterior : Akinetic. There is no comparison study available. Ordering Physician: Peter Vazquez Referring Physician: IVONNE EDMONDSON Performed By: Zheng Sinclair RCS
--- NOTE | 2018-12-10 08:40 | RAD_ITS ---
STUDY: X-RAY CHEST REASON FOR EXAM: Male, 58 years old. Shortness of breath/dyspnea. TECHNIQUE: Single AP portable view of the chest. COMPARISON: Comparison is made with prior study dated December 10, 2018 at 5:41 AM. FINDINGS: An endotracheal tube is in situ. The tip is at 4.2 cm proximal to the adamaris. An enteric tube is seen with the tip below the left hemidiaphragm. EKG electrodes are seen. Persistent vascular congestion and mild degree of CHF. There has been essentially no change. There is no demonstrated pleural abnormality. Normal size heart. Normal mediastinum and max. Normal visualized pulmonary arteries. Normal visualized aortic arch and descending thoracic aorta. Normal visualized thoracic spine. Normal visualized ribs, clavicles, and shoulders. There is no demonstrated abnormality of the visualized soft tissue structures of the upper abdomen. RAD/Chest 1 View (Portable) IMPRESSION: Stable examination demonstrating mild degree of vascular congestion. The support tubes are unchanged. Electronically Signed: Martín Escudero, at 14:08 EDT , Service support ,
[2018-12-10] MEDS: fentaNYL drip 100 ML 2.5 MCG IV (09:00)
[2018-12-10 09:33] LABS: Partial Thromboplast Time 168.1 Seconds (24.1-36.2)
--- NOTE | 2018-12-10 10:00 | EKG12_ITS ---
Test Reason : AM Blood Pressure : / mmHG Vent. Rate : 055 BPM Atrial Rate : 110 BPM P-R Int : 150 ms QRS Dur : 088 ms QT Int : 498 ms P-R-T Axes : 051 073 109 degrees QTc Int : 476 ms Sinus bradycardia Anteroseptal infarct , age undetermined T wave abnormality, consider lateral ischemia Abnormal ECG Confirmed by SILVIA ANDERSON, MIKKI ([id number]), department editor RICHARD BRUNER ([id number]) on 12/15/2018 11:07:49 AM Referred By: Peter Vazquez Confirmed By:MIKKI VEGA MD
[2018-12-10] MEDS: 0.9% Normal Saline 1,000 ML 150 ML IV (10:05)
[2018-12-10 10:10] LABS: Allen Test POS; Base Excess -9 mmol/L (-2 to +2); Bicarbonate 17.4 mmol/L (22-26); Blood Gas Specimen Type ART; FI02 40; Mode A-C; O2 Delivery Device Vent; PEEP 5; PO2 98 mmHG (75-100); RR 14; SITE L Radial; SO2 97 % (95-99); Time Given 955; Total Carbon Dioxide 18 mmol/L; Vt 450; pCO2 36.2 mmHg (35-45); pH 7.29 (7.35-7.45)
[2018-12-10] MEDS: Chlorhexidine 15 ML PO ×2 (10:45→21:35)
--- NOTE | 2018-12-10 10:52 | CASEMGMT ---
SW participated in ICU rounds this morning, present, tearful. SW spoke w/ after, support given. SW remains available for support to and family. MEENA Charles
[2018-12-10] MEDS: Propofol 10MG/Ml 1,000 MG/100 ML Bottle 13.9 MG CONT INF (11:11)
--- NOTE | 2018-12-10 11:27 | CASEMGMT ---
RN CM Assessment Presentation: STEMI Intro role of CM and purpose of RN CM assessment to patient's . Pt is on IABP, Ventilatory support. Demographics, PCP and Pharmacy verified. Per , pt was very independent prior to event. Questions answered for , son and brother re: ICU plan of care; emotional support given. Discussed CM/SW will be available for support and discharge planning. PCP: Dr. Farmer Specialists: Dr. Vazquez Preferred Pharmacy: [facility] [place] Insurance: Clew. Prescription Benefit: yes LNOK: Rachel Living Arrangements: Lives in two story home, one step into home. Per , pt was independent, did not have any care needs. Transportation: pt drives DME: none prior HHC: none prior DC PLAN: undetermined. Family updated CM/SW will be availabe for support and for dc planning. Aisha MOLINA RN ACM
--- NOTE | 2018-12-10 12:02 | RAD_ITS ---
STUDY: X-RAY CHEST REASON FOR EXAM: Male, 58 years old. Chest pain TECHNIQUE: Single AP portable view of the chest. COMPARISON: Earlier today FINDINGS: Stable appearance of the ET and NG tubes. EKG leads overlie the chest. Left-sided PICC line tip in the distal SVC. Persistent interstitial edema without significant interval change since the previous study. There is no demonstrated pleural abnormality. Normal size heart. Normal mediastinum and max. Normal visualized pulmonary arteries. Normal visualized aortic arch and descending thoracic aorta. Normal visualized thoracic spine. Normal visualized ribs, clavicles, and shoulders. There is no demonstrated abnormality of the visualized soft tissue structures of the upper abdomen. RAD/CXR for Line Placement IMPRESSION: No interval change, stable appearance of the previously noted support lines and tubes. Left-sided PICC line tip in the distal SVC Electronically Signed: Chris Harrell MD at 13:01 EDT , Service support ,
[2018-12-10 14:32] LABS: Anion Gap 4 (5-15); BUN 16 mg/dL (7-18); BUN/Creat Ratio 15.7 RATIO (10-20); Calcium,Total 7.1 mg/dL (8.5-10.1); Chloride 117 mmol/L (98-107); Creatinine, Serum 1.02 mg/dL (0.70-1.30); EST Glomerular Filtration Rate 80 mL/min (>60); Est Glom Filt Rate - Afr Amer 97 mL/min (>60); Glucose 94 mg/dL (74-106); Potassium 4.3 mmol/L (3.5-5.1); Sodium Level 142 mmol/L (136-145)
--- NOTE | 2018-12-10 14:53 | CHAPLAIN ---
Type of Pastoral Visit _x__ Initial Visit ___ Follow-up Visit ___ On-call Visit ___ General Patient Visit ___ Spiritual Assessment ___ Family Conference ___ Bereavement ___ Rapid Response ___ Code Blue ___ Other (describe below) Pastoral Care Referral From ___ Patient _x__ Family ___ Nurse ___ Physician ___ Process Inspector ___ Light Technician ___ Other (describe below) Sacrament/Intervention ___ Active listening ___ Anointing ___ Orthodox ___ Bereavement ___ Communion ___ Lisa exploration ___ ___ Life review _x__ Prayer ___ Reconciliation ___ Sacrament of Sick ___ Supportive presence ___ Wedding _x__ Other (describe below) Pastoral Comments patient is sedated after procedure; met with family who welcomed support and prayer on behalf of patient;
--- NOTE | 2018-12-10 15:05 | PCM.CON.CC ---
Problem List (1) Anoxic brain injury Status: Acute (2) Tobacco abuse Status: Chronic (3) Upper GI hemorrhage Status: Suspected (4) STEMI (ST elevation myocardial infarction) Status: Acute Qualifiers: Involved coronary artery: LAD coronary artery Qualified Code(s): I21.02 - ST elevation (STEMI) myocardial infarction involving left anterior descending coronary artery (5) Ventricular fibrillation Status: Acute (6) Metabolic acidosis Status: Acute (7) Metabolic encephalopathy Status: Acute Reason for Consult Date of Consultation: 12/10/18 - Late entry Reason for Consultation: Respiratory failure History of Present Illness: The patient is a 58 year old M, with no reported past medical history other than tobacco abuse, who presented [facility] on 12/10/2018 secondary to being found unresponsive. Patient reportedly had complained of chest pain overnight during physical activity and patient's went to call EMS, but he refused. Patient reportedly went to sleep and the reports waking up with him having agonal respirations. EMS was called. On arrival, patient reportedly was in V. fib and was shocked x1. No medications were required. Reportedly, patient was noted to be breathing on his own and combative on presentation to the ER. In the ER, patient was noted to be hypertensive at 214/98 and tachycardic at 112 bpm. No fevers were noted. EKG showed an anterolateral ST elevation [place]. CT of the head showed some minor edema, but no bleeding. Patient was intubated and taken emergently to Speech Pathologist. In the Speech Pathologist, patient reportedly had a mid LAD lesion, but otherwise vasculature appeared acceptable. Patient reportedly had some severe depressed heart function, so an intra-aortic balloon pump was laced. Patient was then transferred to the intensive care unit for further monitoring. Patient arrived in the intensive care unit at approximately 8:30 AM. Patient was placed on fentanyl and propofol. Patient was noted to have some bloody secretions from the OG. Patient also had some difficulty with vent synchrony. ABG was obtained showing metabolic acidosis. Potassium has been replaced. Patient did have some periods of decreased blood pressure, so Levophed was ordered, but this is not needed to be initiated at this time. Patient has had periods of aggression with attempts to sit up and move his right leg. By time patient had arrived at the intensive care unit, patient had Sarthak been bolused with heparin and was placed on a heparin drip. Patient had a PICC line placed secondary to concerns for possible bleeding complications. Patient's reports that he is a heavy smoker. Patient does not drink alcohol or use drugs. Patient reportedly had been noting some blood in his stool recently. Patient unable to provide a review of systems. with limited review history Past Medical History Past Medical History (Chronic Problems): Chronic Problems Tobacco abuse (Chronic) Allergies povidone-iodine [From Betadine] Allergy (Verified 12/10/18 13:06) Rash soap [From Betadine] Allergy (Verified 12/10/18 13:06) Rash Smoking Status: Heavy Smoker (>10/day) Tobacco Use: Cigarettes Review of Systems Unable to obtain accurate/complete ROS d/t: Intubated and sedated Patient Problems: Active and Suspected Problems STEMI (ST elevation myocardial infarction) (Acute) Ventricular fibrillation (Acute) Metabolic acidosis (Acute) Metabolic encephalopathy (Acute) Anoxic brain injury (Acute) Upper GI hemorrhage (Suspected) Objective: All imaging was personally reviewed. Chest x-rays show supportive devices in appropriate position. No infiltrates are appreciated. Echocardiogram completed after heart catheterization showed an EF of 35 to 40% with an akinetic anterior basal and basilar anteroseptal area. Patient's right ventricular systolic pressure was estimated at 22 mmHg with no significant change in RV diameter. Patient has persistent with a metabolic acidosis for most of the morning. BMP in the afternoon showed recovery of potassium, improvement in renal function and acidosis. - Physical Exam General: - - Intubated and sedated. Fair vent synchrony. Appears older than stated age. HEENT: Atraumatic, PERRLA, EOMI, Normocephalic, - - Scleral injection without icterus Oral: Moist Mucosa, No Gingival or Mucosal Lesions/ Ulcerations Neck: Supple, No JVD, No Nodes, Trachea Midline Lungs: No rhonchi, No wheeze, No rales, Diminished, - - No dullness to percussion anteriorly. Cardiovascular: Regular Rhythm, Normal S1, Normal S2, No murmurs, Bradycardic, No rub noted, No Gallop Abdomen: Bowel Sounds Present, Soft, Non Tender, Distended - Slightly Extremities: No clubbing, No cyanosis, No edema, Capillary Refill Less than 3 Seconds Skin: No rashes, No breakdown Musculoskeletal: No Tenderness to Palpation of Joints or Extremities Lymphatic: No Cervical, Supraclavicular, or Inguinal Adenopathy Neurological: Cranial nerves II-XII grossly intact, Motor Exam 5/5 strength throughout, - - Spontaneous movement of all 4 extremities. Positive gag and cough reflex is noted. Psych/Mental Status: Flat Affect Vital Signs Temp Pulse Resp BP Pulse Ox 37.7 C H 63 14 76/42 L 100 12/10/18 15:00 12/10/18 15:00 12/10/18 15:00 12/10/18 15:00 12/10/18 15:00 Oxygen Flow Rate (L/min) 15 Oxygen Delivery Method Mechanical Ventilator Weight: 92.8 kg Body Mass Index (BMI) 27.3 Finger Stick Blood Glucose 206 Intake and Output for Last 24 Hours 12/08/18 12/09/18 12/10/18 23:59 23:59 23:59 Intake Total 179.96 / 179.96 Output Total 585 / 585 Balance -405.04 / -405.04 Laboratory Tests Past 24 Hrs 12/10/18 12/10/18 12/10/18 05:40 05:40 05:40 WBC 19.2 H RBC 4.81 Hgb 15.2 Hct 46.6 MCV 96.9 H MCH 31.6 MCHC 32.6 RDW Std Deviation 47.5 H RDW Coeff of [place] 13.1 Plt Count 291 MPV 12.0 Immature Gran % (Auto) 2.100 H Neut % (Auto) 45.9 L Lymph % (Auto) 42.1 H [place] % (Auto) 5.5 Eos % (Auto) 3.3 Baso % (Auto) 1.1 H Absolute Neuts (auto) 8.8 H Absolute Lymphs (auto) 8.08 H Nucleated RBC % 0 Differential Comment SCANNED Reactive Lymphocytes 3+ PT 12.6 INR 1.0 APTT 27.0 Activated Clotting Time Specimen Type Sample Site pH Bicarbonate Actual POC Total CO2 Base Excess O2 Saturation O2 % ABG pCO2 ABG pO2 Randal Test Respiration Rate O2 Delivery Device Minute Volume Vent Mode Tidal Volume POC PEEP Blood Gas Notified Whom Blood Gas Notified Time Sodium 141 Potassium 3.2 L Chloride 110 H Carbon Dioxide 19.0 L Anion Gap 12 BUN 19 H Creatinine 1.57 H Estim Creat Clear Calc 55.29 Est GFR (MDRD) Af Amer 59 L Est GFR (MDRD) Non-Af 49 L BUN/Creatinine Ratio 12.1 Glucose 239 H Calcium 8.1 L Troponin I 0.617 H* 12/10/18 12/10/18 12/10/18 06:18 06:55 07:02 WBC RBC Hgb Hct MCV MCH MCHC RDW Std Deviation RDW Coeff of [place] Plt Count MPV Immature Gran % (Auto) Neut % (Auto) Lymph % (Auto) [place] % (Auto) Eos % (Auto) Baso % (Auto) Absolute Neuts (auto) Absolute Lymphs (auto) Nucleated RBC % Differential Comment Reactive Lymphocytes PT INR APTT Activated Clotting Time 180 H 241 H Specimen Type ART Sample Site pH 7.20 L Bicarbonate Actual 16.1 L POC Total CO2 17 Base Excess -12 L O2 Saturation 100 H O2 % ABG pCO2 41.3 ABG pO2 285 H Randal Test Respiration Rate O2 Delivery Device Minute Volume Vent Mode Tidal Volume POC PEEP Blood Gas Notified Whom Blood Gas Notified Time Sodium Potassium Chloride Carbon Dioxide Anion Gap BUN Creatinine Estim Creat Clear Calc Est GFR (MDRD) Af Amer Est GFR (MDRD) Non-Af BUN/Creatinine Ratio Glucose Calcium Troponin I 12/10/18 12/10/18 12/10/18 09:00 09:20 10:04 WBC RBC Hgb Hct MCV MCH MCHC RDW Std Deviation RDW Coeff of [place] Plt Count MPV Immature Gran % (Auto) Neut % (Auto) Lymph % (Auto) [place] % (Auto) Eos % (Auto) Baso % (Auto) Absolute Neuts (auto) Absolute Lymphs (auto) Nucleated RBC % Differential Comment Reactive Lymphocytes PT INR APTT 168.1 H* Activated Clotting Time Specimen Type ART Sample Site L Radial pH 7.29 L Bicarbonate Actual 17.4 L POC Total CO2 18 Base Excess -9 L O2 Saturation 97 O2 % 40 ABG pCO2 36.2 ABG pO2 98 Randal Test POS Respiration Rate 14 O2 Delivery Device Vent Minute Volume 14.00 Vent Mode A-C Tidal Volume 450 POC PEEP 5 Blood Gas Notified Whom ICU MD Blood Gas Notified Time 955 Sodium Potassium Chloride Carbon Dioxide Anion Gap BUN Creatinine Estim Creat Clear Calc Est GFR (MDRD) Af Amer Est GFR (MDRD) Non-Af BUN/Creatinine Ratio Glucose Calcium Troponin I 60.000 H* 12/10/18 12/10/18 13:00 13:00 WBC RBC Hgb Hct MCV MCH MCHC RDW Std Deviation RDW Coeff of [place] Plt Count MPV Immature Gran % (Auto) Neut % (Auto) Lymph % (Auto) [place] % (Auto) Eos % (Auto) Baso % (Auto) Absolute Neuts (auto) Absolute Lymphs (auto) Nucleated RBC % Differential Comment Reactive Lymphocytes PT INR APTT Activated Clotting Time Specimen Type Sample Site pH Bicarbonate Actual POC Total CO2 Base Excess O2 Saturation O2 % ABG pCO2 ABG pO2 Randal Test Respiration Rate O2 Delivery Device Minute Volume Vent Mode Tidal Volume POC PEEP Blood Gas Notified Whom Blood Gas Notified Time Sodium 142 Potassium 4.3 Chloride 117 H Carbon Dioxide 21.0 Anion Gap 4 L BUN 16 Creatinine 1.02 Estim Creat Clear Calc 85.10 Est GFR (MDRD) Af Amer 97 Est GFR (MDRD) Non-Af 80 BUN/Creatinine Ratio 15.7 Glucose 94 Calcium 7.1 L Troponin I 85.000 H* POC Glucose 12/10/18 05:38 POC Glucose 206 H Clinical Impression(s) from Imaging Studies Brain CT 12/10/18 05:39 IMPRESSION: Possible mild edema. Possible anoxic brain injury. No acute hemorrhage or overt ischemic changes on submitted images. These findings were discussed on the telephone with Dr. Guthrie at 608 hrs. EST on 12/10/2018. Electronically Signed: Urvashi Arnold MD at 6:12 EDT , Service support , ADDENDUM: 12/10/18 0620 IMPRESSION: Possible mild edema. Possible anoxic brain injury. No acute hemorrhage or overt ischemic changes on submitted images. These findings were discussed on the telephone with Dr. Guthrie at 608 hrs. EST on 12/10/2018. N.B. : The above information has been verbally conveyed by Urvashi Arnold MD to Shantelle Guthrie MD, MD, on 12/10/2018 06:13:33 (ET). Electronically Signed: Urvashi Arnold MD at 6:12 EDT , Service support , Chest X-Ray 12/10/18 05:40 IMPRESSION: Probable vascular congestion. Possible underlying component of COPD. Lines appear in good position. Electronically Signed: Urvashi Arnold MD at 6:01 EDT , Service support , Chest X-Ray 12/10/18 08:40 IMPRESSION: Stable examination demonstrating mild degree of vascular congestion. The support tubes are unchanged. Electronically Signed: Martín Kota, at 14:08 EDT , Service support , Chest X-Ray 12/10/18 12:02 IMPRESSION: No interval change, stable appearance of the previously noted support lines and tubes. Left-sided PICC line tip in the distal SVC Electronically Signed: Chris Harrell MD at 13:01 EDT , Service support , Assessment/Plan Active and Suspected Problems STEMI (ST elevation myocardial infarction) (Acute) Ventricular fibrillation (Acute) Metabolic acidosis (Acute) Metabolic encephalopathy (Acute) Anoxic brain injury (Acute) Upper GI hemorrhage (Suspected) RECOMMENDATIONS: 1. Replete potassium as necessary 2. Continue antiplatelet therapy and heparin for stent/AIBP 3. Wean oxygen as tolerated 4. Initiate pressors if necessary to keep map greater than 65 5. Spontaneous breathing and awakening trials per protocol 6. Protonix IV twice daily secondary to upper GI bleed 7. Possibly start tube feeds tomorrow IMPRESSIONS: 1. Ventricular fibrillation arrest secondary to ST elevation NH Concerns for coagulopathy given patient's presentation of upper GI bleed. Patient has had cardiac intervention and is on appropriate medications at this time. Patient does have an intra-aortic balloon pump at one-to-one augmentation. Patient will need heparin drip as long this IABP is in place. Blood pressures have been marginal, so pressors may be required. Significant reduction in cardiac function noted 2. Acute respiratory failure Unclear etiology at this time. Patient does have an extensive smoking history and likely has an element of underlying COPD. No pulmonary function tests are available for review. Patient also had a V. fib arrest and has received CPR. Patient may also have an element of alveolar hemorrhage. Patient is oxygenating well at this time. Continue with propofol and fentanyl as needed for vent synchrony. Spontaneous awakening and breathing trials per protocol. 3. Acute upper GI bleed Clinical suspicion for stress gastritis given presentation. Patient's bleeding appears to be improving with Protonix through the day. Continue with Protonix for now. If patient becomes hypotensive, H&H would be indicated and possible transfusion. Hold on any EGD given patient's acute condition. Patient was found to have a decreased mental status, so aspiration pneumonia would be a consideration. No significant infiltrate noted on chest x-ray at this time. Likely start antibiotics if infiltrate were to be noted. 4. Metabolic encephalopathy/possible anoxic encephalopathy CT scan in the ER did show some mild edema and patient was noted to have a decreased mental status on presentation. Patient is currently on propofol and fentanyl to help with vent synchrony. We will continue to monitor. Potassium has been repleted. 5. Groin rash/tobacco abuse/poor history/unclear primary care Complicates care, management, recovery and prognosis. Clinical suspicion for groin rash secondary to prepping for heart catheterization. Patient should be encouraged for complete smoking cessation. Outpatient pulmonary function test for evaluation of COPD would be appropriate. Patient will be placed on a bowel regimen. TIME: 90 minutes of critical care time spent addressing patient's possible anoxic brain injury, acute respiratory failure, upper GI bleed, intra-aortic balloon pump, ST elevation NH, review of all data and collaboration with care team (8:30 AM to 3:30 PM) Code Visit Procedures: 25331 Critial Care Addl 30 Min [id number]: [id number] Critical care first hour
--- NOTE | 2018-12-10 15:17 | CASEMGMT ---
RN CM Note. Call received from Kalyani FortuneAKESTEBAN Correspondence Renew Clerk giving name and call back information if she is needed for dc planning. Devika SCHMIDT with [facility]. Aisha MOLINA RN ACM
[2018-12-10] MEDS: fentaNYL drip 100 ML 15 MCG IV (15:43)
[2018-12-10] MEDS: Propofol 10MG/Ml 1,000 MG/100 ML Bottle 16.7 MG CONT INF (15:43)
[2018-12-10] MEDS: Heparin Injection (Vial) 5,000 UNIT/ML VIAL IV ×2 (16:04→23:08)
[2018-12-10 16:46] LABS: Bedside Glucose 81 mg/dL (70-110)
[2018-12-10 17:30] LABS: Bedside Glucose 84 mg/dL (70-110)
[2018-12-10 17:36] LABS: Anion Gap 2 (5-15); BUN 16 mg/dL (7-18); BUN/Creat Ratio 12.6 RATIO (10-20); Chloride 117 mmol/L (98-107); Creatinine, Serum 1.27 mg/dL (0.70-1.30); EST Glomerular Filtration Rate 62 mL/min (>60); Est Glom Filt Rate - Afr Amer 75 mL/min (>60); Estimated Creatinine Clearance 68.35 ml/min; Glucose 85 mg/dL (74-106); Potassium 5.1 mmol/L (3.5-5.1); Sodium Level 142 mmol/L (136-145)
[2018-12-10] MEDS: TICAGRELOR 90 MG TABLET GT (18:19)
[2018-12-10] MEDS: Propofol 10MG/Ml 1,000 MG/100 ML Bottle 25.1 MG CONT INF ×2 (19:54→23:40)
[2018-12-10] MEDS: fentaNYL drip 100 ML 17.5 MCG IV (21:33)
[2018-12-10] MEDS: 0.9% NaCl Peripheral Flush Adult/Peds IV (21:45)
[2018-12-10 22:01] LABS: Partial Thromboplast Time 40.9 Seconds (24.1-36.2)
[2018-12-10] MEDS: 0.9% NaCl IVPB Med Flush (250 mL) 15 ML IV (23:09)
[2018-12-10 23:51] LABS: Bedside Glucose 90 mg/dL (70-110)
[2018-12-11] VITALS (41 sets, daily range): BP systolic 49–138; BP diastolic 22–84; PULSE 56–100; RESP 14–31; TEMP 37.7–39.7; O2SAT 89–100
[2018-12-11] MEDS: Propofol 10MG/Ml 1,000 MG/100 ML Bottle 25.1 MG CONT INF ×2 (03:09→05:31)
[2018-12-11] MEDS: fentaNYL drip 100 ML 17.5 MCG IV ×4 (03:10→21:25)
[2018-12-11 05:02] LABS: Hematocrit 40.3 % (40-54); Hemoglobin 13.1 g/dL (13.0-16.5); Mean Corp Hgb Conc 32.5 g/dL (32-36); Mean Corpuscular Hgb 31.3 pg (27.0-32.0); Mean Corpuscular Volume 96.2 fL (80-94); Mean Platelet Vol. 11.4 fl (6.2-12.0); Platelet Count 179 K/mm3 (150-450); RBC Distribution Width CV 13.9 % (11.6-14.6); RBC Distribution Width SD 49.1 fl (35.1-43.9); Red Blood Count 4.19 M/mm3 (4.6-6.2); White Blood Count 14.3 K/mm3 (4.4-11.0)
[2018-12-11 05:11] LABS: Partial Thromboplast Time 57.1 Seconds (24.1-36.2)
[2018-12-11 05:26] LABS: ALB/GLOB Ratio 0.9 RATIO (0.9-2.4); AST(SGOT) 107 U/L (15-37); Alanine Aminotransfer ALT/SGPT 58 U/L (16-61); Albumin, Serum 2.5 g/dL (3.2-5.0); Alkaline Phosphatase 74 U/L (45-117); Anion Gap 6 (5-15); BUN 13 mg/dL (7-18); BUN/Creat Ratio 11.5 RATIO (10-20); Calcium,Total 7.2 mg/dL (8.5-10.1); Chloride 116 mmol/L (98-107); Creatinine, Serum 1.13 mg/dL (0.70-1.30); EST Glomerular Filtration Rate 71 mL/min (>60); Est Glom Filt Rate - Afr Amer 86 mL/min (>60); Estimated Creatinine Clearance 76.82 ml/min; Globulin 2.7 g/dL (2.2-4.2); Glucose 101 mg/dL (74-106); Potassium 3.8 mmol/L (3.5-5.1); Protein, Total 5.2 g/dL (6.4-8.2); Sodium Level 145 mmol/L (136-145); Thyroid Stim Hormone (TSH) 1.26 uIU/mL (0.358-3.74)
[2018-12-11] MEDS: CHLORHEXIDINE GLUC 2% CLOTH 1 EACH TOWELETTE TOPICAL ×2 (05:31→21:09)
[2018-12-11] MEDS: 0.9% NaCl Peripheral Flush Adult/Peds IV (05:33)
[2018-12-11 05:36] LABS: Bedside Glucose 102 mg/dL (70-110)
--- NOTE | 2018-12-11 05:55 | RAD_ITS ---
STUDY: X-RAY CHEST REASON FOR EXAM: Male, 58 years old. Verification of balloon placement. TECHNIQUE: Single AP portable view of the chest. COMPARISON: None. FINDINGS: Aortic balloon pump with catheter tip over the left main bronchus inferior to the aortic arch seen similarly on previous exam. Left-sided PICC line is stable with catheter tip over the cavoatrial junction/right atrium. Endotracheal tube tip approximately 5.3 cm superior to the adamaris, enteric tube tip in distal sidehole of the gastric fundus. There are superimposed monitor leads. Vague interstitial pattern, improved aeration in the right upper lung. There is no demonstrated pleural abnormality. Normal size heart. Normal mediastinum and max. Normal visualized pulmonary arteries. Normal visualized aortic arch and descending thoracic aorta. Normal visualized thoracic spine. Normal visualized ribs, clavicles, and shoulders. There is no demonstrated abnormality of the visualized soft tissue structures of the upper abdomen. RAD/Chest 1 View (Portable) IMPRESSION: Lines as above. Improved aeration, decrease of interstitial opacification particularly in the right upper lung. Electronically Signed: Urvashi Arnold MD at 6:13 EDT , Service support ,
--- NOTE | 2018-12-11 07:28 | PCM.PN.INT ---
Subjective: Patient did okay overnight. Patient did have some marginal blood pressures overnight, but Levophed did not have to be initiated. Patient had significant agitation this morning with spontaneous awakening trial, so spontaneous breathing trial was not completed. Nursing has reported some thick endotracheal secretions. No bleeding has been reported clinically by nursing. Objective: Chest x-ray was personally reviewed and shows appropriate position of supportive devices and minimal infiltrate. Patient does have an air bronchogram in the right max General: - - Intubated and sedated. Good vent synchrony. Appears older than stated age. HEENT: Atraumatic, PERRLA, EOMI, Normocephalic, - - Slight scleral injection without icterus Oral: Moist Mucosa, No Gingival or Mucosal Lesions/ Ulcerations Neck: Supple, No JVD, No Nodes, Trachea Midline Lungs: No rhonchi, No wheeze, No rales, Diminished, - - Symmetric expansion. Cardiovascular: Regular rate, Regular Rhythm, Normal S1, Normal S2, No murmurs, No rub noted, No Gallop Abdomen: Bowel Sounds Present, Soft, Non Tender, Distended - Slightly Extremities: No clubbing, No cyanosis, Edema Skin: No rashes Musculoskeletal: No Tenderness to Palpation of Joints or Extremities Lymphatic: No Cervical, Supraclavicular, or Inguinal Adenopathy Neurological: Cranial nerves II-XII grossly intact, Neuro grossly intact, Motor Exam 5/5 strength throughout Psych/Mental Status: Flat Affect, Impulsive Vital Signs Temp Pulse Resp BP Pulse Ox 37.7 C H 67 14 78/52 L 100 12/11/18 07:00 12/11/18 07:00 12/11/18 07:00 12/11/18 07:00 12/11/18 07:00 Oxygen Flow Rate (L/min) 40 Oxygen Delivery Method Mechanical Ventilator Weight: 77.3 kg Body Mass Index (BMI) 27.3 Finger Stick Blood Glucose 206 Intake and Output for Last 24 Hours 12/09/18 12/10/18 12/11/18 23:59 23:59 23:59 Intake Total 1988.64 / 2013.79 394.73 / 394.73 Output Total 1166 / 1166 276 / 276 Balance 823.64 / 848.79 118.73 / 118.73 Labs (Last 48 Hours) 12/10/18 12/10/18 12/10/18 05:38 05:40 05:40 WBC 19.2 H RBC 4.81 Hgb 15.2 Hct 46.6 MCV 96.9 H MCH 31.6 MCHC 32.6 RDW Std Deviation 47.5 H RDW Coeff of [place] 13.1 Plt Count 291 MPV 12.0 Immature Gran % (Auto) 2.100 H Neut % (Auto) 45.9 L Lymph % (Auto) 42.1 H [place] % (Auto) 5.5 Eos % (Auto) 3.3 Baso % (Auto) 1.1 H Absolute Neuts (auto) 8.8 H Absolute Lymphs (auto) 8.08 H Nucleated RBC % 0 Differential Comment SCANNED Reactive Lymphocytes 3+ PT 12.6 INR 1.0 APTT 27.0 Activated Clotting Time Specimen Type Sample Site pH Bicarbonate Actual POC Total CO2 Base Excess O2 Saturation O2 % ABG pCO2 ABG pO2 Randal Test Respiration Rate O2 Delivery Device Minute Volume Vent Mode Tidal Volume POC PEEP Blood Gas Notified Whom Blood Gas Notified Time Sodium Potassium Chloride Carbon Dioxide Anion Gap BUN Creatinine Estim Creat Clear Calc Est GFR (MDRD) Af Amer Est GFR (MDRD) Non-Af BUN/Creatinine Ratio Glucose Calcium Total Bilirubin AST ALT Alkaline Phosphatase Troponin I Total Protein Albumin Globulin Albumin/Globulin Ratio TSH POC Glucose 206 H 12/10/18 12/10/18 12/10/18 05:40 06:18 06:55 WBC RBC Hgb Hct MCV MCH MCHC RDW Std Deviation RDW Coeff of [place] Plt Count MPV Immature Gran % (Auto) Neut % (Auto) Lymph % (Auto) [place] % (Auto) Eos % (Auto) Baso % (Auto) Absolute Neuts (auto) Absolute Lymphs (auto) Nucleated RBC % Differential Comment Reactive Lymphocytes PT INR APTT Activated Clotting Time 180 H 241 H Specimen Type Sample Site pH Bicarbonate Actual POC Total CO2 Base Excess O2 Saturation O2 % ABG pCO2 ABG pO2 Randal Test Respiration Rate O2 Delivery Device Minute Volume Vent Mode Tidal Volume POC PEEP Blood Gas Notified Whom Blood Gas Notified Time Sodium 141 Potassium 3.2 L Chloride 110 H Carbon Dioxide 19.0 L Anion Gap 12 BUN 19 H Creatinine 1.57 H Estim Creat Clear Calc 55.29 Est GFR (MDRD) Af Amer 59 L Est GFR (MDRD) Non-Af 49 L BUN/Creatinine Ratio 12.1 Glucose 239 H Calcium 8.1 L Total Bilirubin AST ALT Alkaline Phosphatase Troponin I 0.617 H* Total Protein Albumin Globulin Albumin/Globulin Ratio TSH POC Glucose 12/10/18 12/10/18 12/10/18 07:02 09:00 09:20 WBC RBC Hgb Hct MCV MCH MCHC RDW Std Deviation RDW Coeff of [place] Plt Count MPV Immature Gran % (Auto) Neut % (Auto) Lymph % (Auto) [place] % (Auto) Eos % (Auto) Baso % (Auto) Absolute Neuts (auto) Absolute Lymphs (auto) Nucleated RBC % Differential Comment Reactive Lymphocytes PT INR APTT 168.1 H* Activated Clotting Time Specimen Type ART Sample Site pH 7.20 L Bicarbonate Actual 16.1 L POC Total CO2 17 Base Excess -12 L O2 Saturation 100 H O2 % ABG pCO2 41.3 ABG pO2 285 H Randal Test Respiration Rate O2 Delivery Device Minute Volume Vent Mode Tidal Volume POC PEEP Blood Gas Notified Whom Blood Gas Notified Time Sodium Potassium Chloride Carbon Dioxide Anion Gap BUN Creatinine Estim Creat Clear Calc Est GFR (MDRD) Af Amer Est GFR (MDRD) Non-Af BUN/Creatinine Ratio Glucose Calcium Total Bilirubin AST ALT Alkaline Phosphatase Troponin I 60.000 H* Total Protein Albumin Globulin Albumin/Globulin Ratio TSH POC Glucose 12/10/18 12/10/18 12/10/18 10:04 12:30 13:00 WBC RBC Hgb Hct MCV MCH MCHC RDW Std Deviation RDW Coeff of [place] Plt Count MPV Immature Gran % (Auto) Neut % (Auto) Lymph % (Auto) [place] % (Auto) Eos % (Auto) Baso % (Auto) Absolute Neuts (auto) Absolute Lymphs (auto) Nucleated RBC % Differential Comment Reactive Lymphocytes PT INR APTT Activated Clotting Time Specimen Type ART Sample Site L Radial pH 7.29 L Bicarbonate Actual 17.4 L POC Total CO2 18 Base Excess -9 L O2 Saturation 97 O2 % 40 ABG pCO2 36.2 ABG pO2 98 Randal Test POS Respiration Rate 14 O2 Delivery Device Vent Minute Volume 14.00 Vent Mode A-C Tidal Volume 450 POC PEEP 5 Blood Gas Notified Whom ICU MD Blood Gas Notified Time 955 Sodium 142 Potassium 4.3 Chloride 117 H Carbon Dioxide 21.0 Anion Gap 4 L BUN 16 Creatinine 1.02 Estim Creat Clear Calc 85.10 Est GFR (MDRD) Af Amer 97 Est GFR (MDRD) Non-Af 80 BUN/Creatinine Ratio 15.7 Glucose 94 Calcium 7.1 L Total Bilirubin AST ALT Alkaline Phosphatase Troponin I Total Protein Albumin Globulin Albumin/Globulin Ratio [facility] POC Glucose 81 12/10/18 12/10/18 12/10/18 13:00 15:05 16:10 WBC RBC Hgb Hct MCV MCH MCHC RDW Std Deviation RDW Coeff of [place] Plt Count MPV Immature Gran % (Auto) Neut % (Auto) Lymph % (Auto) [place] % (Auto) Eos % (Auto) Baso % (Auto) Absolute Neuts (auto) Absolute Lymphs (auto) Nucleated RBC % Differential Comment Reactive Lymphocytes PT INR APTT 35.0 Activated Clotting Time Specimen Type Sample Site pH Bicarbonate Actual POC Total CO2 Base Excess O2 Saturation O2 % ABG pCO2 ABG pO2 Randal Test Respiration Rate O2 Delivery Device Minute Volume Vent Mode Tidal Volume POC PEEP Blood Gas Notified Whom Blood Gas Notified Time Sodium 142 Potassium 5.1 Chloride 117 H Carbon Dioxide 23.0 Anion Gap 2 L BUN 16 Creatinine 1.27 Estim Creat Clear Calc 68.35 Est GFR (MDRD) Af Amer 75 Est GFR (MDRD) Non-Af 62 BUN/Creatinine Ratio 12.6 Glucose 85 Calcium 7.0 L Total Bilirubin AST ALT Alkaline Phosphatase Troponin I 85.000 H* Total Protein Albumin Globulin Albumin/Globulin Ratio [facility] POC Glucose 12/10/18 12/10/18 12/10/18 17:21 21:45 23:30 WBC RBC Hgb Hct MCV MCH MCHC RDW Std Deviation RDW Coeff of [place] Plt Count MPV Immature Gran % (Auto) Neut % (Auto) Lymph % (Auto) [place] % (Auto) Eos % (Auto) Baso % (Auto) Absolute Neuts (auto) Absolute Lymphs (auto) Nucleated RBC % Differential Comment Reactive Lymphocytes PT INR APTT 40.9 H Activated Clotting Time Specimen Type Sample Site pH Bicarbonate Actual POC Total CO2 Base Excess O2 Saturation O2 % ABG pCO2 ABG pO2 Randal Test Respiration Rate O2 Delivery Device Minute Volume Vent Mode Tidal Volume POC PEEP Blood Gas Notified Whom Blood Gas Notified Time Sodium Potassium Chloride Carbon Dioxide Anion Gap BUN Creatinine Estim Creat Clear Calc Est GFR (MDRD) Af Amer Est GFR (MDRD) Non-Af BUN/Creatinine Ratio Glucose Calcium Total Bilirubin AST ALT Alkaline Phosphatase Troponin I Total Protein Albumin Globulin Albumin/Globulin Ratio [facility] POC Glucose 84 90 09/12/11/18 12/11/18 04:45 04:45 04:45 WBC 14.3 H RBC 4.19 L Hgb 13.1 Hct 40.3 MCV 96.2 H MCH 31.3 MCHC 32.5 RDW Std Deviation 49.1 H RDW Coeff of [place] 13.9 Plt Count 179 MPV 11.4 Immature Gran % (Auto) Neut % (Auto) Lymph % (Auto) [place] % (Auto) Eos % (Auto) Baso % (Auto) Absolute Neuts (auto) Absolute Lymphs (auto) Nucleated RBC % Differential Comment Reactive Lymphocytes PT INR APTT 57.1 H Activated Clotting Time Specimen Type Sample Site pH Bicarbonate Actual POC Total CO2 Base Excess O2 Saturation O2 % ABG pCO2 ABG pO2 Randal Test Respiration Rate O2 Delivery Device Minute Volume Vent Mode Tidal Volume POC PEEP Blood Gas Notified Whom Blood Gas Notified Time Sodium 145 Potassium 3.8 Chloride 116 H Carbon Dioxide 23.0 Anion Gap 6 BUN 13 Creatinine 1.13 Estim Creat Clear Calc 76.82 Est GFR (MDRD) Af Amer 86 Est GFR (MDRD) Non-Af 71 BUN/Creatinine Ratio 11.5 Glucose 101 Calcium 7.2 L Total Bilirubin 0.60 AST 107 H ALT 58 Alkaline Phosphatase 74 Troponin I Total Protein 5.2 L Albumin 2.5 L Globulin 2.7 Albumin/Globulin Ratio 0.9 TSH 1.26 POC Glucose 12/11/18 05:30 WBC RBC Hgb Hct MCV MCH MCHC RDW Std Deviation RDW Coeff of [place] Plt Count MPV Immature Gran % (Auto) Neut % (Auto) Lymph % (Auto) [place] % (Auto) Eos % (Auto) Baso % (Auto) Absolute Neuts (auto) Absolute Lymphs (auto) Nucleated RBC % Differential Comment Reactive Lymphocytes PT INR APTT Activated Clotting Time Specimen Type Sample Site pH Bicarbonate Actual POC Total CO2 Base Excess O2 Saturation O2 % ABG pCO2 ABG pO2 Randal Test Respiration Rate O2 Delivery Device Minute Volume Vent Mode Tidal Volume POC PEEP Blood Gas Notified Whom Blood Gas Notified Time Sodium Potassium Chloride Carbon Dioxide Anion Gap BUN Creatinine Estim Creat Clear Calc Est GFR (MDRD) Af Amer Est GFR (MDRD) Non-Af BUN/Creatinine Ratio Glucose Calcium Total Bilirubin AST ALT Alkaline Phosphatase Troponin I Total Protein Albumin Globulin Albumin/Globulin Ratio TSH POC Glucose 102 Clinical Impression(s) from Imaging Studies Chest X-Ray 12/10/18 08:40 IMPRESSION: Stable examination demonstrating mild degree of vascular congestion. The support tubes are unchanged. Electronically Signed: Martín Kota, at 14:08 EDT , Service support , Chest X-Ray 12/10/18 12:02 IMPRESSION: No interval change, stable appearance of the previously noted support lines and tubes. Left-sided PICC line tip in the distal SVC Electronically Signed: Chris Harrell MD at 13:01 EDT , Service support , Chest X-Ray 12/11/18 05:55 IMPRESSION: Lines as above. Improved aeration, decrease of interstitial opacification particularly in the right upper lung. Electronically Signed: Urvashi Arnold MD at 6:13 EDT , Service support , Medical Necessity - Tobacco Use Smoking Status: Heavy Smoker (>10/day) Tobacco Use: Cigarettes Assessment/Plan All Active Problems STEMI (ST elevation myocardial infarction) (Acute) Ventricular fibrillation (Acute) Metabolic acidosis (Acute) Metabolic encephalopathy (Acute) Anoxic brain injury (Acute) RECOMMENDATIONS: 1. Replete potassium as necessary 2. Continue antiplatelet therapy and heparin for stent/AIBP 3. Wean oxygen as tolerated 4. Discontinue Levophed off the MAR. Can be reordered if necessary 5. Spontaneous breathing and awakening trials per protocol 6. Continue Protonix. Okay to start tube feeds 7. Transition to Precedex therapy IMPRESSIONS: 1. Ventricular fibrillation arrest secondary to ST elevation [place] Concerns for coagulopathy given patient's presentation of upper GI bleed. Patient has had cardiac intervention and is on appropriate medications at this time. Patient does have an intra-aortic balloon pump at one-to-one augmentation. Patient will need heparin drip as long this IABP is in place. Blood pressures have been marginal, so pressors may be required. Patient is having improving urine output. Will discontinue Levophed for now. Significant reduction in cardiac function noted on recent echocardiogram 2. Acute respiratory failure Unclear etiology at this time. Patient does have an extensive smoking history and likely has an element of underlying COPD. No pulmonary function tests are available for review. Patient also had a V. fib arrest and has received CPR. Patient may also have an element of alveolar hemorrhage. Patient is oxygenating well at this time. Will attempt transition from propofol to Precedex therapy to facilitate spontaneous breathing trials. Spontaneous awakening and breathing trials per protocol. 3. Acute upper GI bleed Clinical suspicion for stress gastritis given presentation. Patient's bleeding appears to be improving with Protonix through the day. Continue with Protonix for now. Chin H has remained stable. No indication for transfusion at this time. Hold on any EGD given patient's acute condition. Patient was found to have a decreased mental status, so aspiration pneumonia would be a consideration. Secretions much improved from OG. Will attempt tube feeds later today. 4. Metabolic encephalopathy/possible anoxic encephalopathy CT scan in the ER did show some mild edema and patient was noted to have a decreased mental status on presentation. Patient is currently on propofol and fentanyl to help with vent synchrony. This will be transitioned over to Precedex. Patient has had spontaneous purposeful movements. We will continue to monitor. Potassium has been repleted. 5. Groin rash/tobacco abuse/poor history/unclear primary care Complicates care, management, recovery and prognosis. Clinical suspicion for groin rash secondary to prepping for heart catheterization. Patient should be encouraged for complete smoking cessation. Outpatient pulmonary function test for evaluation of COPD would be appropriate. Patient will be placed on a bowel regimen. TIME: 33 minutes of critical care time spent addressing patient's possible anoxic brain injury, acute respiratory failure, upper GI bleed, intra-aortic balloon pump, ST elevation [place], review of all data and collaboration with care team (5:50 AM to 7:35 AM) Code Visit 9xxxx: [id number] Critical care first hour
[2018-12-11] MEDS: Aspirin 81 MG TAB.CHEW GT (08:07)
--- NOTE | 2018-12-11 09:13 | CM.UR ---
Participated in interdisciplinary rounds. Brother present for rounds. Patient remains on vent with IABP in place. discharge plans TBD. Case mgmt will continue to follow for discharge planning. El Maciel RN, CCM.
[2018-12-11] MEDS: LORazepam 2 MG/ML Syringe IV (09:15)
[2018-12-11] MEDS: Senna/Docusate Sodium 1 Tablet 2 TABLET PO (09:49)
[2018-12-11] MEDS: TICAGRELOR 90 MG TABLET GT ×2 (09:49→21:08)
[2018-12-11] MEDS: Chlorhexidine 15 ML PO ×2 (10:27→21:14)
[2018-12-11 12:01] LABS: Bedside Glucose 117 mg/dL (70-110)
[2018-12-11 12:12] LABS: Partial Thromboplast Time 50.4 Seconds (24.1-36.2)
--- NOTE | 2018-12-11 12:27 | PN_ITS ---
Patient Problems: Active and Suspected Problems STEMI (ST elevation myocardial infarction) (Acute) Ventricular fibrillation (Acute) Metabolic acidosis (Acute) Metabolic encephalopathy (Acute) Anoxic brain injury (Acute) Upper GI hemorrhage (Suspected) Subjective: Agitation. Switched Precedex from propofol. Vitals/I&O's: Vital Signs Temp Pulse Resp BP Pulse Ox 38.9 C H 61 18 103/47 L 98 12/11/18 12:00 12/11/18 12:00 12/11/18 12:00 12/11/18 12:00 12/11/18 12:00 Oxygen Flow Rate (L/min) 40 Oxygen Delivery Method Mechanical Ventilator Weight: 77.3 kg Body Mass Index (BMI) 27.3 Finger Stick Blood Glucose 206 Intake and Output for Last 24 Hours 12/09/18 12/10/18 12/11/18 23:59 23:59 23:59 Intake Total 1988.64 / 2013. 677.61 / 677.61 Output Total 1166 / 1166 426 / 426 Balance 823.64 / 848.79 251.61 / 251.61 General: - - intubated and sedated HEENT: Atraumatic, Normocephalic Oral: - - ETT and OG in place. Neck: No Nodes, Thyroid Normal Size and Texture Lungs: Normal air movement, - - coarse breath sounds bilaterally. Cardiovascular: Regular rate, Regular Rhythm, - - balloon pump ascultated. Abdomen: Bowel Sounds Present, Soft, Non Tender, Non-Distended Extremities: No edema, No Calf Tenderness, Diminished Peripheral Pulses Skin: No rashes, No breakdown Musculoskeletal: No Muscle Wasting Neurological: - - no clonus Microbiology Past 72 Hours 12/11/18 02:00 Sputum, Induced/[place] Gram Stain - Final Laboratory Results 12/10/18 12:30: POC Glucose 81 12/10/18 13:00: Sodium 142, Potassium 4.3, Chloride 117 H, Carbon Dioxide 21.0, Anion Gap 4 L, BUN 16, Creatinine 1.02, Estim Creat Clear Calc 85.10, Est GFR (MDRD) Af Amer 97, Est GFR (MDRD) Non-Af 80, BUN/Creatinine Ratio 15.7, Glucose 94, Calcium 7.1 L 12/10/18 13:00: Troponin I 85.000 H* 12/10/18 15:05: APTT 35.0 12/10/18 16:10: Sodium 142, Potassium 5.1, Chloride 117 H, Carbon Dioxide 23.0, Anion Gap 2 L, BUN 16, Creatinine 1.27, Estim Creat Clear Calc 68.35, Est GFR (MDRD) Af Amer 75, Est GFR (MDRD) Non-Af 62, BUN/Creatinine Ratio 12.6, Glucose 85, Calcium 7.0 L 12/10/18 17:21: POC Glucose 84 12/10/18 21:45: APTT 40.9 H 12/10/18 23:30: POC Glucose 90 12/11/18 04:45: WBC 14.3 H, RBC 4.19 L, Hgb 13.1, Hct 40.3, MCV 96.2 H, MCH 31.3, MCHC 32.5, RDW Std Deviation 49.1 H, RDW Coeff of [place] 13.9, Plt Count 179, MPV 11.4 12/11/18 04:45: Sodium 145, Potassium 3.8, Chloride 116 H, Carbon Dioxide 23.0, Anion Gap 6, BUN 13, Creatinine 1.13, Estim Creat Clear Calc 76.82, Est GFR (MDRD) Af Amer 86, Est GFR (MDRD) Non-Af 71, BUN/Creatinine Ratio 11.5, Glucose 101, Calcium 7.2 L, Total Bilirubin 0.60, AST 107 H, ALT 58, Alkaline Phosphatase 74, Total Protein 5.2 L, Albumin 2.5 L, Globulin 2.7, Albumin/Globulin Ratio 0.9, TSH 1.26 12/11/18 04:45: APTT 57.1 H 12/11/18 05:30: POC Glucose 102 12/11/18 11:50: APTT 50.4 H 12/11/18 11:52: POC Glucose 117 H Current Medications Acetaminophen (Tylenol) 650 mg PO Q6H PRN PRN PRN Reason: Mild Pain (0-2/10) Acetaminophen (Tylenol) 650 mg RECTAL Q4H PRN PRN PRN Reason: Mild Pain (1-3)/Temp > 100.7 F Aspirin (Aspirin, Baby) 81 mg GT DAILY@0800 [facility] Last Admin: 12/11/18 08:07 Dose: 81 mg Documented by: Atorvastatin Calcium (Lipitor) 80 mg PO QHS [facility] Last Admin: 12/10/18 21:35 Dose: Not Given Documented by: Atropine Sulfate () 0.5 mg IV UD PRN PRN Reason: HR <50 bpm Chlorhexidine Gluconate () 15 ml PO BID [facility] Last Admin: 12/11/18 10:27 Dose: 15 ml Documented by: Chlorhexidine Gluconate () 1 each TOPICAL DAILY [facility] Last Admin: 12/11/18 05:31 Dose: 1 each Documented by: Dextrose (D50w Syringe) 0 gm IV X1 PRN; Protocol PRN Reason: Hypoglycemia Diazepam (Valium) 5 mg PO Q6H PRN PRN PRN Reason: BACK SPASMS/ANXIETY Glucagon () 1 mg IM .X1 PRN PRN Reason: Hypoglycemia Heparin Sodium (Beef Lung) (Heparin 500 Unit/5 Ml (100/Ml)) 500 unit IV UD PRN PRN Reason: HEPARIN FLUSH Heparin Sodium (Beef Lung) () 50 units IV UD PRN PRN Reason: HEPARIN FLUSH Heparin Sodium (Porcine) (Heparin Na) 0 unit IV UD PRN; Protocol Last Admin: 12/10/18 23:08 Dose: 1,000 unit Documented by: Heparin Sodium/Sodium Chloride () 2,000 units IV UD [facility] Last Admin: 12/11/18 09:37 Dose: Not Given Documented by: Propofol (Diprivan) 1,000 mg in 100 mls @ 5.568 mls/hr CONT INF .Q12H [facility]; Protocol Last Titration: 12/11/18 10:00 Dose: 0 mcg/kg/min, 0 mls/hr Documented by: Heparin Sodium/Dextrose () 25,000 units in 250 mls @ 10 mls/hr IV .Q25H [facility]; Protocol Last Admin: 12/11/18 11:15 Dose: Not Given Documented by: Fentanyl () 100 mls @ 2.5 mls/hr IV UD [facility]; Protocol Last Admin: 12/11/18 09:47 Dose: 175 mcg/hr, 17.5 mls/hr Documented by: Pantoprazole Sodium 40 mg/ (Sodium Chloride) 110 mls @ 330 mls/hr IV Q12 [facility] Last Infusion: 12/11/18 11:33 Dose: Infused Documented by: Sodium Chloride () 250 mls @ 15 mls/hr IV .[id number] PRN PRN Reason: SALINE FLUSH Last Admin: 12/10/18 23:09 Dose: 15 mls/hr Documented by: Dexmedetomidine HCl 400 mcg/ (Sodium Chloride) 100 mls @ 28.988 mls/hr CONT INF .Q3H27M [facility]; Protocol Last Admin: 12/11/18 11:12 Dose: 1.5 mcg/kg/hr, 29 mls/hr Documented by: Enteral Nutritional Formula (Vital Af 1.2 Brent Liquid) 1,000 mls @ 60 mls/hr GT .[id number] [facility] Insulin Human Lispro (Humalog Kwikpen (Bkc)) 0 unit SC Q6 [facility]; Protocol Last Admin: 12/11/18 05:32 Dose: Not Given Documented by: Labetalol HCl (Trandate) 5 mg IV X1 PRN PRN Reason: SBP > 160 when pulling sheath Lisinopril (Zestril) 5 mg GT DAILY [facility] Last Admin: 12/11/18 09:39 Dose: Not Given Documented by: Metoclopramide HCl (Reglan) 5 mg IV Q6H PRN PRN PRN Reason: NAUSEA/VOMITING Metoprolol Tartrate (Lopressor (Beta Missy)) 12.5 mg GT BID [facility] Last Admin: 12/11/18 09:38 Dose: Not Given Documented by: Morphine Sulfate () 2 mg IV Q4H PRN PRN PRN Reason: Mild back pain (0-2/10) Nitroglycerin (Nitrostat) 0.4 mg SUBLINGUAL Q5M PRN PRN Reason: CARDIAC/CHEST PAIN Ondansetron HCl (Zofran) 4 mg IV Q8H PRN PRN PRN Reason: NAUSEA/VOMITING Polyethylene Glycol (Miralax) 17 gm PO DAILY PRN PRN Reason: Constipation Senna/Docusate Sodium (Senokot-S, Jackelin-Colace) 2 tablet PO DAILY [facility] Last Admin: 12/11/18 09:49 Dose: 2 tablet Documented by: Sodium Chloride () 500 ml IV BOLUS PRN PRN Reason: VASO-VAGAL PROTOCOL Sodium Chloride () 10 - 40 ml IV UD PRN PRN Reason: SALINE FLUSH Last Admin: 12/11/18 05:33 Dose: 10 ml Documented by: Sodium Chloride () 10 - 40 ml IV UD PRN PRN Reason: PICC FLUSH Ticagrelor (Brilinta) 90 mg GT BID [facility] Last Admin: 12/11/18 09:49 Dose: 90 mg Documented by: Medical Necessity - Tobacco Use Smoking Status: Heavy Smoker (>10/day) Tobacco Use: Cigarettes Assessment/Plan All Active Problems STEMI (ST elevation myocardial infarction) (Acute) Ventricular fibrillation (Acute) Metabolic acidosis (Acute) Metabolic encephalopathy (Acute) Anoxic brain injury (Acute) 1. STEMI * Status post drug-eluting stent to the LAD * Cardiology following * On balloon pump * Patient did receive heparin, Integrilin, aspirin Brilinta * We will continue with aspirin, Brilinta and atorvastatin * Patient continue with balloon pump for now. Discussed with Dr. Vazquez, plan is to continue with the balloon pump until the * Patient will need to have lifelong tobacco cessation * Heparin drip while the balloon pump is in place 2. Acute respiratory failure * Intubated in the emergency room. * Vent management per critical care medicine * Possibly due to aspiration pneumonia, COPD, alveolar hemorrhage (s/p CPR) 3. Metabolic encephalopathy * Head CT showed some mild edema that could be an anoxic encephalopathy * Is unclear how long the patient was down the patient was noted to have sonorous respirations if * Patient did receive some CPR in the field by family, is unclear how effective that CPR was and patient did receive a shock by EMS * Patient will need repeat imaging to assess the degree of edema if it still persists at a later point preferably when he is more hemodynamically stable, however, if patient's condition does deteriorate then that not be performed much sooner. 4. VTE prophylaxis: Patient is anticoagulated but given the balloon pump and being critically ill will also add SCDs. 5. Groin rash * May be contact dermatitis from the Betadine/chlorhexidine that was used to sterilize his groin for the heart catheterization. The area has been demarcated with a marker. Will monitor but to hold off on antibiotics at this time. Code Visit Inpatient E&M: 51410 [facility] L3
--- NOTE | 2018-12-11 12:30 | RAD_ITS ---
HISTORY: fever EXAM: XR Chest 1 View: COMPARISON: November 21, 2018 FINDINGS: # of images incl. paperwork: 1 Endotracheal tube is in adequate position and unchanged. Esophagogastric tube continues to terminate below the diaphragm with its tip superimposed over the gastric bubble. The proximal most sidehole remains at approximately the gastroesophageal junction. It may benefit the patient from being advanced by a few centimeters. An intra-aortic balloon pump is present. The tip of the catheter is within the anticipated location of the descending thoracic aorta, below the aortic arch. Left arm PICC terminates superimposed over the interspace location of the SVC right atrial junction. Lungs are clear. Heart is not enlarged. Bones are normal. Pulmonary vascularity is distinct. No effusions. RAD/Chest 1 View (Portable) IMPRESSION: No change. at 2322 Reported and signed by: Rico Bauman MD Electronically Signed: Rico Bauman MD at 23:21 EDT Tel , Service support ,
--- NOTE | 2018-12-11 12:33 | PCM.PN.CARD ---
Subjectve: Patient remains on mechanical ventilator. His symptoms are quite stable the propofol was discontinued and patient was started on Precedex to facilitate pneumatic support and patient can remains on Pradaxa 1.5 mg/kg/min. He was responding to painful commands and was able to sit and fight the ventilator during the transition from the propofol to the Precedex Objective: Vital Signs Temp Pulse Resp BP Pulse Ox 102.0 F H 61 18 103/47 L 98 12/11/18 12:00 12/11/18 12:00 12/11/18 12:00 12/11/18 12:00 12/11/18 12:00 Oxygen Flow Rate (L/min) 40 Oxygen Delivery Method Mechanical Ventilator Weight: 170 lb 6.677 oz Body Mass Index (BMI) 27.3 Finger Stick Blood Glucose 206 Intake and Output for Last 24 Hours 12/09/18 12/10/18 12/11/18 23:59 23:59 23:59 Intake Total 1989.64 / 2014.79 677.61 / 677.61 Output Total 1166 / 1166 426 / 426 Balance 823.64 / 848.79 251.61 / 251.61 General: Healthy Appearing Oral: Moist Mucosa Lungs: Clear to auscultation Cardiovascular: Regular Rhythm Vascular: No Carotid Bruits Abdomen: Hypoactive Bowel Sounds Extremities: No edema - Remains on mechanical ventilator. IABP in place in right femoral artery.NO hematoma. 1:1 tolerating well. good right dorsalis pedis pulsation. 12/10/18 13:00: Sodium 142, Potassium 4.3, Chloride 117 H, Carbon Dioxide 21.0, Anion Gap 4 L, BUN 16, Creatinine 1.02, Est GFR (MDRD) Af Amer 97, Est GFR (MDRD) Non-Af 80, BUN/Creatinine Ratio 15.7, Glucose 94, Calcium 7.1 L 12/10/18 13:00: Troponin I 85.000 H* 12/10/18 15:05: APTT 35.0 12/10/18 16:10: Sodium 142, Potassium 5.1, Chloride 117 H, Carbon Dioxide 23.0, Anion Gap 2 L, BUN 16, Creatinine 1.27, Est GFR (MDRD) Af Amer 75, Est GFR (MDRD) Non-Af 62, BUN/Creatinine Ratio 12.6, Glucose 85, Calcium 7.0 L 12/10/18 21:45: APTT 40.9 H 12/11/18 04:45: WBC 14.3 H, RBC 4.19 L, Hgb 13.1, Hct 40.3, MCV 96.2 H, MCH 31.3, MCHC 32.5, Plt Count 179, MPV 11.4 12/11/18 04:45: Sodium 145, Potassium 3.8, Chloride 116 H, Carbon Dioxide 23.0, Anion Gap 6, BUN 13, Creatinine 1.13, Est GFR (MDRD) Af Amer 86, Est GFR (MDRD) Non-Af 71, BUN/Creatinine Ratio 11.5, Glucose 101, Calcium 7.2 L, Total Bilirubin 0.60 12/11/18 04:45: APTT 57.1 H 12/11/18 11:50: APTT 50.4 H Rhythm: EKG: ECHO: Stress Test: Cardiac Cath: PCI: CT Surgery: Holter monitor: EPS: PPM: CXR: Chest CT Scan: Medical Necessity - Tobacco Use Smoking Status: Heavy Smoker (>10/day) Tobacco Use: Cigarettes Assessment/Plan Status post acute anerior wall myocadial infarction with stunned myocardium involving the anterior and anteroapical mccormack of the ventricle with moderately depressed left ventricular systolic function ejection fraction of 35% . patient was resuscitated and is currently on intraaortic baloon pump one-to-one tolerating it well with good hemodynamics. Systolic blood pressure is 103/60 mmHg on precedex drip at 1.5 mg/kg/min 2.alma continue Mechanical ventilator support for the next 24 hours, will check a BNP with the morning labs and if elevated will consider giving a small dose of IV Lasix to facilitate extubation tomorrow 3.We will continue patient on low-dose IV heparin protocol to decrease risk of thrombosis in the lower extremities from the enteric balloon pump Patient on dual antibiotic therapy and patient will be initiated on NG feedings this afternoon 4. Starting patient on Coreg as well as EMMANUEL inhibitors with maintenance dose of diuretics starting tomorrow 5. will start Patient on statin therapy down the NG tube from this evening Code Visit Inpatient E&M: [id number] [place] [id number]
[2018-12-11] MEDS: Haloperidol Lactate 5 MG/ML Vial IV (13:35)
[2018-12-11] MEDS: Acetaminophen 650 MG Suppository RECTAL (14:07)
[2018-12-11] MEDS: Propofol 10MG/Ml 1,000 MG/100 ML Bottle 10 MG CONT INF (14:12)
[2018-12-11] MEDS: Vital AF 1.2 Cal Liquid 1,000 ML 60 ML GT (16:18)
[2018-12-11] MEDS: HEPARIN/D5w 25,000 UNITS 25,000 UNITS/250 ML IV.SOLN. 10 UNITS IV (16:21)
[2018-12-11] MEDS: Dexmedetomidine 1,000 mcg in 0.9% NS 240 mL 29 MCG CONT INF (17:54)
[2018-12-11 18:06] LABS: Bedside Glucose 112 mg/dL (70-110)
[2018-12-11 18:54] LABS: Partial Thromboplast Time 66.9 Seconds (24.1-36.2)
--- NOTE | 2018-12-11 20:45 | NURSING ---
Pharmacist, Jaja, notified of rate discrepancy between calculated doses of propofol between what the pump IS running and what the computer/[employer] calculation predicts. Santana pump programmed w/pt's accurate weight of 77.3kg, propofol running at 15mcg/kg/min and 7ml/hr; [employer] calculates the rate for 15mcg of propofol to be 8.5ml/hr. New Medication Titration Parameter order sent w/pt's accurate weight. All other weight-based medications match in [employer] when compared to Santana pumps.
[2018-12-11] MEDS: Atorvastatin Calcium 80 MG Tablet PO (21:08)
[2018-12-11] MEDS: TITRATION PARAMETER CHANGE 1 EACH IV (21:21)
--- NOTE | 2018-12-11 21:30 | NURSING ---
Propofol rate for 15mcg/kg/min corrected in [facility] and now matches Santana pump at 7ml/hr.
[2018-12-11] MEDS: Propofol 10MG/Ml 1,000 MG/100 ML Bottle 9.3 MG CONT INF (22:20)
--- NOTE | 2018-12-11 22:45 | NURSING ---
Pt cont to have periods of severe restlessness/agitation that jeopardizes IABP insertion site for which propofol is being increased, while Precedex is at maximum dosing allowed. Pt noted to have decreasing HR and lowering BP values, Precedex gtt reduced as sedation benefit is nonexistent.
[2018-12-12] VITALS (44 sets, daily range): BP systolic 53–166; BP diastolic 23–79; PULSE 56–105; RESP 13–24; TEMP 37.7–38.7; O2SAT 93–100
[2018-12-12 00:20] LABS: Bedside Glucose 129 mg/dL (70-110)
[2018-12-12 01:28] LABS: Partial Thromboplast Time 49.6 Seconds (24.1-36.2)
--- NOTE | 2018-12-12 02:00 | NURSING ---
PCXR ordered stat for decreasing urine output to verify placement of balloon pump
--- NOTE | 2018-12-12 02:10 | RAD_ITS ---
HISTORY: VERIFY BALLOON PUMP POSITION EXAM: XR Chest 1 View: COMPARISON: Yesterday just afternoon FINDINGS: # of images incl. paperwork: 1 Interaortic balloon pump tip terminates superimposed over the descending thoracic aorta, at the level of the adamaris. Endotracheal tube terminates superimposed over the trachea below the clavicular heads and above the adamaris. Esophagogastric tube tip terminates superimposed over the stomach below the diaphragm. Minimal right lung airspace disease may just be prominence of right hilar vessels. Left arm PICC catheter tip terminates superimposed over the right atrial SVC junction Heart is not enlarged. Bones are normal. Pulmonary vascularity is distinct. No effusions. RAD/Chest 1 View (Portable) IMPRESSION: No change. at 0245 Reported and signed by: Rico Bauman MD Electronically Signed: Rico Bauman MD at 2:44 EDT Tel , Service support ,
[2018-12-12] MEDS: Propofol 10MG/Ml 1,000 MG/100 ML Bottle 11.6 MG CONT INF (03:14)
[2018-12-12] MEDS: Dexmedetomidine 1,000 mcg in 0.9% NS 240 mL 19.3 MCG CONT INF (03:14)
[2018-12-12] MEDS: fentaNYL drip 100 ML 17.5 MCG IV ×2 (03:14→10:30)
[2018-12-12 03:24] LABS: Absolute Lymphocyte Count 2.27 X10^3/uL (0.83-4.51); Basophil% 0.6 % (0-1); Eosinophil# 0.13 X10^3/uL; Eosinophils% 0.7 % (0-5); Hematocrit 37.9 % (40-54); Hemoglobin 12.4 g/dL (13.0-16.5); Lymphocyte # 2.27 X10^3/ul (4.0); Lymphocyte % 12.6 % (19-41); Mean Corp Hgb Conc 32.7 g/dL (32-36); Mean Corpuscular Volume 97.7 fL (80-94); Mean Platelet Vol. 12.1 fl (6.2-12.0); Monocyte# 1.44 X10^3/uL; NRBC Flagged by Analyzer 0 % (0-5); Neutrophil # 13.96 X10^3/uL (2.7-7.7); Neutrophil % 77.5 % (47-70); Platelet Count 160 K/mm3 (150-450); RBC Distribution Width CV 13.6 % (11.6-14.6); RBC Distribution Width SD 48.5 fl (35.1-43.9); Red Blood Count 3.88 M/mm3 (4.6-6.2)
[2018-12-12 03:41] LABS: Anion Gap 9 (5-15); BUN 18 mg/dL (7-18); BUN/Creat Ratio 12.2 RATIO (10-20); Calcium,Total 7.6 mg/dL (8.5-10.1); Chloride 117 mmol/L (98-107); Creatinine, Serum 1.47 mg/dL (0.70-1.30); EST Glomerular Filtration Rate 52 mL/min (>60); Est Glom Filt Rate - Afr Amer 64 mL/min (>60); Estimated Creatinine Clearance 59.05 ml/min; Glucose 131 mg/dL (74-106); Sodium Level 147 mmol/L (136-145)
[2018-12-12 04:00] LABS: BNP,B-Type NATRIURETIC PEPTIDE 292.9 pg/mL (0-100)
[2018-12-12 05:16] LABS: Bedside Glucose 96 mg/dL (70-110)
[2018-12-12] MEDS: TITRATION PARAMETER CHANGE 1 EACH IV (05:19)
[2018-12-12] MEDS: Furosemide 40 MG/4 ML Vial IV ×2 (05:32→15:10)
[2018-12-12] MEDS: Polyethylene Glycol 3350 17 GM PACKET PO (06:40)
--- NOTE | 2018-12-12 07:52 | PN_ITS ---
Subjective: Patient with some difficulties overnight. Patient reportedly had had issues with oxygenation and agitation. Patient was on PEEP of 10. Attempts to wean PEEP showed ectopy. Patient had to be reinitiated on propofol therapy secondary to repeated agitation and desaturation. Patient was initiated on tube feeds and has been tolerating them. No bowel movements have been noted overnight. Objective: My review of chest x-ray from this morning is significant for a developing right lower lobe infiltrate General: - - Intubated and sedated. RASS -2 to -3. Good vent synchrony. HEENT: Atraumatic, PERRLA, EOMI, Normocephalic, - - No scleral icterus or injection noted Oral: Moist Mucosa, No Gingival or Mucosal Lesions/ Ulcerations, - - Edentulous Neck: Supple, No JVD, No Nodes, Trachea Midline Lungs: No rhonchi, No wheeze, No rales, Diminished, - - Thin brown secretions noted Cardiovascular: Regular rate, Regular Rhythm, Normal S1, Normal S2, No murmurs, No rub noted, No Gallop Abdomen: Bowel Sounds Present, Soft, Non Tender, Non-Distended Extremities: No clubbing, No cyanosis, Diminished Peripheral Pulses, Edema Skin: No rashes, No breakdown Musculoskeletal: No Tenderness to Palpation of Joints or Extremities Lymphatic: No Cervical, Supraclavicular, or Inguinal Adenopathy Neurological: Cranial nerves II-XII grossly intact, Neuro grossly intact, Motor Exam 5/5 strength throughout Psych/Mental Status: Flat Affect Vital Signs Temp Pulse Resp BP Pulse Ox 38.0 C H 58 L 17 74/46 L 100 12/12/18 06:00 12/12/18 06:00 12/12/18 06:00 12/12/18 06:00 12/12/18 06:00 Oxygen Flow Rate (L/min) 50 Oxygen Delivery Method Mechanical Ventilator Weight: 82.7 kg Body Mass Index (BMI) 27.3 Finger Stick Blood Glucose 206 Intake and Output for Last 24 Hours 12/10/18 12/11/18 12/12/18 23:59 23:59 23:59 Intake Total 2171.50 / 2317.88 982.25 / 982.25 Output Total 1166 / 1166 774 / 796 724 / 724 Balance 823.64 / 848.79 1397.50 / 1521.88 258.25 / 258.25 Labs (Last 48 Hours) 12/10/18 12/10/18 12/10/18 05:38 06:18 06:55 WBC RBC Hgb Hct MCV MCH MCHC RDW Std Deviation RDW Coeff of [place] Plt Count MPV Immature Gran % (Auto) Neut % (Auto) Lymph % (Auto) [place] % (Auto) Eos % (Auto) Baso % (Auto) Absolute Neuts (auto) Absolute Lymphs (auto) Nucleated RBC % APTT Activated Clotting Time 180 H 241 H Specimen Type Sample Site pH Bicarbonate Actual POC Total CO2 Base Excess O2 Saturation O2 % ABG pCO2 ABG pO2 Randal Test Respiration Rate O2 Delivery Device Minute Volume Vent Mode Tidal Volume POC PEEP Blood Gas Notified Whom Blood Gas Notified Time Sodium Potassium Chloride Carbon Dioxide Anion Gap BUN Creatinine Estim Creat Clear Calc Est GFR (MDRD) Af Amer Est GFR (MDRD) Non-Af BUN/Creatinine Ratio Glucose Calcium Total Bilirubin AST ALT Alkaline Phosphatase Troponin I B-Natriuretic Peptide Total Protein Albumin Globulin Albumin/Globulin Ratio TSH MRSA (PCR) POC Glucose 206 H 12/10/18 12/10/18 12/10/18 07:02 09:00 09:20 WBC RBC Hgb Hct MCV MCH MCHC RDW Std Deviation RDW Coeff of [place] Plt Count MPV Immature Gran % (Auto) Neut % (Auto) Lymph % (Auto) [place] % (Auto) Eos % (Auto) Baso % (Auto) Absolute Neuts (auto) Absolute Lymphs (auto) Nucleated RBC % APTT 168.1 H* Activated Clotting Time Specimen Type ART Sample Site pH 7.20 L Bicarbonate Actual 16.1 L POC Total CO2 17 Base Excess -12 L O2 Saturation 100 H O2 % ABG pCO2 41.3 ABG pO2 285 H Randal Test Respiration Rate O2 Delivery Device Minute Volume Vent Mode Tidal Volume POC PEEP Blood Gas Notified Whom Blood Gas Notified Time Sodium Potassium Chloride Carbon Dioxide Anion Gap BUN Creatinine Estim Creat Clear Calc Est GFR (MDRD) Af Amer Est GFR (MDRD) Non-Af BUN/Creatinine Ratio Glucose Calcium Total Bilirubin AST ALT Alkaline Phosphatase Troponin I 60.000 H* B-Natriuretic Peptide Total Protein Albumin Globulin Albumin/Globulin Ratio TSH MRSA (PCR) POC Glucose 12/10/18 12/10/18 12/10/18 10:04 12:30 13:00 WBC RBC Hgb Hct MCV MCH MCHC RDW Std Deviation RDW Coeff of [place] Plt Count MPV Immature Gran % (Auto) Neut % (Auto) Lymph % (Auto) [place] % (Auto) Eos % (Auto) Baso % (Auto) Absolute Neuts (auto) Absolute Lymphs (auto) Nucleated RBC % APTT Activated Clotting Time Specimen Type ART Sample Site L Radial pH 7.29 L Bicarbonate Actual 17.4 L POC Total CO2 18 Base Excess -9 L O2 Saturation 97 O2 % 40 ABG pCO2 36.2 ABG pO2 98 Randal Test POS Respiration Rate 14 O2 Delivery Device Vent Minute Volume 14.00 Vent Mode A-C Tidal Volume 450 POC PEEP 5 Blood Gas Notified Whom ICU MD Blood Gas Notified Time 955 Sodium 142 Potassium 4.3 Chloride 117 H Carbon Dioxide 21.0 Anion Gap 4 L BUN 16 Creatinine 1.02 Estim Creat Clear Calc 85.10 Est GFR (MDRD) Af Amer 97 Est GFR (MDRD) Non-Af 80 BUN/Creatinine Ratio 15.7 Glucose 94 Calcium 7.1 L Total Bilirubin AST ALT Alkaline Phosphatase Troponin I B-Natriuretic Peptide Total Protein Albumin Globulin Albumin/Globulin Ratio TSH MRSA (PCR) POC Glucose 81 12/10/18 12/10/18 12/10/18 13:00 15:05 16:10 WBC RBC Hgb Hct MCV MCH MCHC RDW Std Deviation RDW Coeff of [place] Plt Count MPV Immature Gran % (Auto) Neut % (Auto) Lymph % (Auto) [place] % (Auto) Eos % (Auto) Baso % (Auto) Absolute Neuts (auto) Absolute Lymphs (auto) Nucleated RBC % APTT 35.0 Activated Clotting Time Specimen Type Sample Site pH Bicarbonate Actual POC Total CO2 Base Excess O2 Saturation O2 % ABG pCO2 ABG pO2 Randal Test Respiration Rate O2 Delivery Device Minute Volume Vent Mode Tidal Volume POC PEEP Blood Gas Notified Whom Blood Gas Notified Time Sodium 142 Potassium 5.1 Chloride 117 H Carbon Dioxide 23.0 Anion Gap 2 L BUN 16 Creatinine 1.27 Estim Creat Clear Calc 68.35 Est GFR (MDRD) Af Amer 75 Est GFR (MDRD) Non-Af 62 BUN/Creatinine Ratio 12.6 Glucose 85 Calcium 7.0 L Total Bilirubin AST ALT Alkaline Phosphatase Troponin I 85.000 H* B-Natriuretic Peptide Total Protein Albumin Globulin Albumin/Globulin Ratio TSH MRSA (PCR) POC Glucose 12/10/18 12/10/18 12/10/18 17:21 21:45 23:30 WBC RBC Hgb Hct MCV MCH MCHC RDW Std Deviation RDW Coeff of [place] Plt Count MPV Immature Gran % (Auto) Neut % (Auto) Lymph % (Auto) [place] % (Auto) Eos % (Auto) Baso % (Auto) Absolute Neuts (auto) Absolute Lymphs (auto) Nucleated RBC % APTT 40.9 H Activated Clotting Time Specimen Type Sample Site pH Bicarbonate Actual POC Total CO2 Base Excess O2 Saturation O2 % ABG pCO2 ABG pO2 Randal Test Respiration Rate O2 Delivery Device Minute Volume Vent Mode Tidal Volume POC PEEP Blood Gas Notified Whom Blood Gas Notified Time Sodium Potassium Chloride Carbon Dioxide Anion Gap BUN Creatinine Estim Creat Clear Calc Est GFR (MDRD) Af Amer Est GFR (MDRD) Non-Af BUN/Creatinine Ratio Glucose Calcium Total Bilirubin AST ALT Alkaline Phosphatase Troponin I B-Natriuretic Peptide Total Protein Albumin Globulin Albumin/Globulin Ratio TSH MRSA (PCR) POC Glucose 84 90 12/11/18 12/11/18 12/11/18 04:45 04:45 04:45 WBC 14.3 H RBC 4.19 L Hgb 13.1 Hct 40.3 MCV 96.2 H MCH 31.3 MCHC 32.5 RDW Std Deviation 49.1 H RDW Coeff of [place] 13.9 Plt Count 179 MPV 11.4 Immature Gran % (Auto) Neut % (Auto) Lymph % (Auto) [place] % (Auto) Eos % (Auto) Baso % (Auto) Absolute Neuts (auto) Absolute Lymphs (auto) Nucleated RBC % APTT 57.1 H Activated Clotting Time Specimen Type Sample Site pH Bicarbonate Actual POC Total CO2 Base Excess O2 Saturation O2 % ABG pCO2 ABG pO2 Randal Test Respiration Rate O2 Delivery Device Minute Volume Vent Mode Tidal Volume POC PEEP Blood Gas Notified Whom Blood Gas Notified Time Sodium 145 Potassium 3.8 Chloride 116 H Carbon Dioxide 23.0 Anion Gap 6 BUN 13 Creatinine 1.13 Estim Creat Clear Calc 76.82 Est GFR (MDRD) Af Amer 86 Est GFR (MDRD) Non-Af 71 BUN/Creatinine Ratio 11.5 Glucose 101 Calcium 7.2 L Total Bilirubin 0.60 AST 107 H ALT 58 Alkaline Phosphatase 74 Troponin I B-Natriuretic Peptide Total Protein 5.2 L Albumin 2.5 L Globulin 2.7 Albumin/Globulin Ratio 0.9 TSH 1.26 MRSA (PCR) POC Glucose 12/11/18 12/11/18 12/11/18 05:30 11:50 11:52 WBC RBC Hgb Hct MCV MCH MCHC RDW Std Deviation RDW Coeff of [place] Plt Count MPV Immature Gran % (Auto) Neut % (Auto) Lymph % (Auto) [place] % (Auto) Eos % (Auto) Baso % (Auto) Absolute Neuts (auto) Absolute Lymphs (auto) Nucleated RBC % APTT 50.4 H Activated Clotting Time Specimen Type Sample Site pH Bicarbonate Actual POC Total CO2 Base Excess O2 Saturation O2 % ABG pCO2 ABG pO2 Randal Test Respiration Rate O2 Delivery Device Minute Volume Vent Mode Tidal Volume POC PEEP Blood Gas Notified Whom Blood Gas Notified Time Sodium Potassium Chloride Carbon Dioxide Anion Gap BUN Creatinine Estim Creat Clear Calc Est GFR (MDRD) Af Amer Est GFR (MDRD) Non-Af BUN/Creatinine Ratio Glucose Calcium Total Bilirubin AST ALT Alkaline Phosphatase Troponin I B-Natriuretic Peptide Total Protein Albumin Globulin Albumin/Globulin Ratio TSH MRSA (PCR) POC Glucose 102 117 H 12/11/18 12/11/18 12/11/18 18:00 18:30 23:55 WBC RBC Hgb Hct MCV MCH MCHC RDW Std Deviation RDW Coeff of [place] Plt Count MPV Immature Gran % (Auto) Neut % (Auto) Lymph % (Auto) [place] % (Auto) Eos % (Auto) Baso % (Auto) Absolute Neuts (auto) Absolute Lymphs (auto) Nucleated RBC % APTT 66.9 H Cancelled Activated Clotting Time Specimen Type Sample Site pH Bicarbonate Actual POC Total CO2 Base Excess O2 Saturation O2 % ABG pCO2 ABG pO2 Randal Test Respiration Rate O2 Delivery Device Minute Volume Vent Mode Tidal Volume POC PEEP Blood Gas Notified Whom Blood Gas Notified Time Sodium Potassium Chloride Carbon Dioxide Anion Gap BUN Creatinine Estim Creat Clear Calc Est GFR (MDRD) Af Amer Est GFR (MDRD) Non-Af BUN/Creatinine Ratio Glucose Calcium Total Bilirubin AST ALT Alkaline Phosphatase Troponin I B-Natriuretic Peptide Total Protein Albumin Globulin Albumin/Globulin Ratio TSH MRSA (PCR) POC Glucose 112 H 12/12/18 12/12/18 12/12/18 00:13 00:30 03:15 WBC 18.0 H RBC 3.88 L Hgb 12.4 L Hct 37.9 L MCV 97.7 H MCH 32.0 MCHC 32.7 RDW Std Deviation 48.5 H RDW Coeff of [place] 13.6 Plt Count 160 MPV 12.1 H Immature Gran % (Auto) 0.600 Neut % (Auto) 77.5 H Lymph % (Auto) 12.6 L [place] % (Auto) 8.0 Eos % (Auto) 0.7 Baso % (Auto) 0.6 Absolute Neuts (auto) 14.0 H Absolute Lymphs (auto) 2.27 Nucleated RBC % 0 APTT 49.6 H Activated Clotting Time Specimen Type Sample Site pH Bicarbonate Actual POC Total CO2 Base Excess O2 Saturation O2 % ABG pCO2 ABG pO2 Randal Test Respiration Rate O2 Delivery Device Minute Volume Vent Mode Tidal Volume POC PEEP Blood Gas Notified Whom Blood Gas Notified Time Sodium Potassium Chloride Carbon Dioxide Anion Gap BUN Creatinine Estim Creat Clear Calc Est GFR (MDRD) Af Amer Est GFR (MDRD) Non-Af BUN/Creatinine Ratio Glucose Calcium Total Bilirubin AST ALT Alkaline Phosphatase Troponin I B-Natriuretic Peptide Total Protein Albumin Globulin Albumin/Globulin Ratio TSH MRSA (PCR) POC Glucose 129 H 12/12/18 12/12/18 12/12/18 03:15 03:15 05:09 WBC RBC Hgb Hct MCV MCH MCHC RDW Std Deviation RDW Coeff of [place] Plt Count MPV Immature Gran % (Auto) Neut % (Auto) Lymph % (Auto) [place] % (Auto) Eos % (Auto) Baso % (Auto) Absolute Neuts (auto) Absolute Lymphs (auto) Nucleated RBC % APTT Activated Clotting Time Specimen Type Sample Site pH Bicarbonate Actual POC Total CO2 Base Excess O2 Saturation O2 % ABG pCO2 ABG pO2 Randal Test Respiration Rate O2 Delivery Device Minute Volume Vent Mode Tidal Volume POC PEEP Blood Gas Notified Whom Blood Gas Notified Time Sodium 147 H Potassium 4.0 Chloride 117 H Carbon Dioxide 21.0 Anion Gap 9 BUN 18 Creatinine 1.47 H Estim Creat Clear Calc 59.05 Est GFR (MDRD) Af Amer 64 Est GFR (MDRD) Non-Af 52 L BUN/Creatinine Ratio 12.2 Glucose 131 H Calcium 7.6 L Total Bilirubin AST ALT Alkaline Phosphatase Troponin I B-Natriuretic Peptide 292.9 H Total Protein Albumin Globulin Albumin/Globulin Ratio TSH MRSA (PCR) POC Glucose 96 12/12/18 06:35 WBC RBC Hgb Hct MCV MCH MCHC RDW Std Deviation RDW Coeff of [place] Plt Count MPV Immature Gran % (Auto) Neut % (Auto) Lymph % (Auto) [place] % (Auto) Eos % (Auto) Baso % (Auto) Absolute Neuts (auto) Absolute Lymphs (auto) Nucleated RBC % APTT Activated Clotting Time Specimen Type Sample Site pH Bicarbonate Actual POC Total CO2 Base Excess O2 Saturation O2 % ABG pCO2 ABG pO2 Randal Test Respiration Rate O2 Delivery Device Minute Volume Vent Mode Tidal Volume POC PEEP Blood Gas Notified Whom Blood Gas Notified Time Sodium Potassium Chloride Carbon Dioxide Anion Gap BUN Creatinine Estim Creat Clear Calc Est GFR (MDRD) Af Amer Est GFR (MDRD) Non-Af BUN/Creatinine Ratio Glucose Calcium Total Bilirubin AST ALT Alkaline Phosphatase Troponin I B-Natriuretic Peptide Total Protein Albumin Globulin Albumin/Globulin Ratio TSH MRSA (PCR) Pending POC Glucose Microbiology 12/11/18 09:28 Sputum, Induced/Lukens Gram Stain - Final 12/11/18 02:00 Sputum, Induced/Lukens Gram Stain - Final Clinical Impression(s) from Imaging Studies Chest X-Ray 12/11/18 12:30 IMPRESSION: No change. at 2322 Reported and signed by: Rico Bauman MD Electronically Signed: Rico Bauman MD at 23:21 EDT Tel , Service support , Chest X-Ray 12/12/18 02:10 IMPRESSION: No change. at 0245 Reported and signed by: Rico Bauman MD Electronically Signed: Rico Bauman MD at 2:44 EDT Tel , Service support , Medical Necessity - Tobacco Use Smoking Status: Heavy Smoker (>10/day) Tobacco Use: Cigarettes Assessment/Plan All Active Problems STEMI (ST elevation myocardial infarction) (Acute) Ventricular fibrillation (Acute) Metabolic acidosis (Acute) Metabolic encephalopathy (Acute) Anoxic brain injury (Acute) RECOMMENDATIONS: 1. Continue empiric antibiotics pending culture results 2. Continue antiplatelet therapy and heparin for stent/AIBP 3. Wean oxygen as tolerated 4. Continue Levophed. 5. Spontaneous breathing and awakening trials per protocol 6. Continue Protonix. Okay to continue tube feeds. Aggressive bowel regimen 7. Transition back to propofol sedation IMPRESSIONS: 1. Ventricular fibrillation arrest secondary to ST elevation LA Concerns for coagulopathy given patient's presentation of upper GI bleed initially, but this has improved with PPI therapy. Patient has had cardiac intervention and is on appropriate medications at this time. Patient does have an intra-aortic balloon pump at one-to-one augmentation. Patient will need heparin drip as long this IABP is in place. She did have to be initiated on pressor therapy yesterday with reinitiation of propofol. Patient is having marginal urine output, but chest x-ray does not show any significant change in IABP position. Significant reduction in cardiac function noted on recent echocardiogram 2. Acute respiratory failure Unclear etiology at this time. Patient does have an extensive smoking history and likely has an element of underlying COPD. No pulmonary function tests are available for review. Patient also had a V. fib arrest and has received CPR. Patient appears to be developing a right lower lobe infiltrate on chest x-ray. Sputum culture is showing gram-positive cocci and significant inflammation. Clinical suspicion for aspiration during decreased mental status. Initiated on empiric Zosyn therapy. MRSA swab is pending. 3. Acute upper GI bleed Clinical suspicion for stress gastritis given presentation. Patient's bleeding appears to be improving with Protonix through the day. Continue with Protonix for now. Chin H has remained stable. No indication for transfusion at this time. Hold on any EGD given patient's acute condition. She is tolerating tube feed. 4. Metabolic encephalopathy/possible anoxic encephalopathy CT scan in the ER did show some mild edema and patient was noted to have a decreased mental status on presentation. Patient is currently on propofol and fentanyl to help with vent synchrony. Patient failed attempt to transition to Precedex. Given probable aspiration pneumonia, will place back on propofol therapy and wean off Precedex. This may be attempted in the future when condition is more stable. Patient has had spontaneous purposeful movements. We will continue to monitor. Potassium has been repleted. 5. Groin rash/tobacco abuse/poor history/unclear primary care Complicates care, management, recovery and prognosis. Clinical suspicion for groin rash secondary to prepping for heart catheterization. Patient should be encouraged for complete smoking cessation. Outpatient pulmonary function test for evaluation of COPD would be appropriate. Patient will be placed on a bowel regimen. TIME: 40 minutes of critical care time spent addressing patient's possible anoxic brain injury, acute respiratory failure, upper GI bleed, intra-aortic balloon pump, ST elevation LA, review of all data and collaboration with care team (6 AM to 8 AM) Code Visit [id number]: [id number] Critical care first hour
[2018-12-12] MEDS: Aspirin 81 MG TAB.CHEW GT (08:45)
[2018-12-12] MEDS: Senna/Docusate Sodium 1 Tablet 2 TABLET PO (08:45)
[2018-12-12] MEDS: QUEtiapine 25 MG Tablet 50 MG PO ×2 (08:45→21:25)
[2018-12-12] MEDS: TICAGRELOR 90 MG TABLET GT ×2 (08:45→21:28)
[2018-12-12] MEDS: Chlorhexidine 15 ML PO ×2 (08:46→21:29)
--- NOTE | 2018-12-12 09:00 | PN_ITS ---
Patient Problems: Active and Suspected Problems STEMI (ST elevation myocardial infarction) (Acute) Ventricular fibrillation (Acute) Metabolic acidosis (Acute) Metabolic encephalopathy (Acute) Anoxic brain injury (Acute) Upper GI hemorrhage (Suspected) Subjective: agitation overnight. Transitioned back to propofol. Vitals/I&O's: Vital Signs Temp Pulse Resp BP Pulse Ox 38.0 C H 58 L 17 91/38 L 100 12/12/18 06:00 12/12/18 08:00 12/12/18 08:00 12/12/18 08:00 12/12/18 08:00 Oxygen Flow Rate (L/min) 50 Oxygen Delivery Method Mechanical Ventilator Weight: 82.7 kg Body Mass Index (BMI) 27.3 Finger Stick Blood Glucose 206 Intake and Output for Last 24 Hours 12/10/18 12/11/18 12/12/18 23:59 23:59 23:59 Intake Total / 2171.50 / 2317.88 1082.25 / 1082.25 Output Total 1166 / 1166 774 / 796 989 / 989 Balance 823.64 / 848.79 1397.50 / 1521.88 93.25 / 93.25 General: Confused, - - agitated. afebrile. HEENT: Atraumatic, Normocephalic, - - narrow pupils. no icterus. Oral: Moist Mucosa, No Gingival or Mucosal Lesions/ Ulcerations Neck: No Nodes, Thyroid Normal Size and Texture Lungs: Clear to auscultation, Normal air movement, No rhonchi, No wheeze Cardiovascular: Regular rate, Regular Rhythm, Normal S1, Normal S2, - - IABP ascultated. Abdomen: Bowel Sounds Present, Soft, Non Tender, Non-Distended Extremities: No Calf Tenderness, Edema - trace in RLE Skin: No breakdown Musculoskeletal: No Tenderness to Palpation of Joints or Extremities, No Muscle Wasting Neurological: - - no clonus. moves all extremities spontaneously. Psych/Mental Status: Agitated Microbiology Past 72 Hours 12/11/18 09:28 Sputum, Induced/Lukens Gram Stain - Final 12/11/18 02:00 Sputum, Induced/Lukens Gram Stain - Final Laboratory Results 12/11/18 11:50: APTT 50.4 H 12/11/18 11:52: POC Glucose 117 H 12/11/18 18:00: POC Glucose 112 H 12/11/18 18:30: APTT 66.9 H 12/11/18 23:55: APTT Cancelled 12/12/18 00:13: POC Glucose 129 H 12/12/18 00:30: APTT 49.6 H 12/12/18 03:15: WBC 18.0 H, RBC 3.88 L, Hgb 12.4 L, Hct 37.9 L, MCV 97.7 H, MCH 32.0, MCHC 32.7, RDW Std Deviation 48.5 H, RDW Coeff of [place] 13.6, Plt Count 160, MPV 12.1 H, Immature Gran % (Auto) 0.600, Neut % (Auto) 77.5 H, Lymph % (Auto) 12.6 L, [place] % (Auto) 8.0, Eos % (Auto) 0.7, Baso % (Auto) 0.6, Absolute Neuts (auto) 14.0 H, Absolute Lymphs (auto) 2.27, Nucleated RBC % 0 12/12/18 03:15: Sodium 147 H, Potassium 4.0, Chloride 117 H, Carbon Dioxide 21.0, Anion Gap 9, BUN 18, Creatinine 1.47 H, Estim Creat Clear Calc 59.05, Est GFR (MDRD) Af Amer 64, Est GFR (MDRD) Non-Af 52 L, BUN/Creatinine Ratio 12.2, Glucose 131 H, Calcium 7.6 L 12/12/18 03:15: B-Natriuretic Peptide 292.9 H 12/12/18 05:09: POC Glucose 96 12/12/18 06:35: MRSA (PCR) Pending 12/12/18 08:25: APTT Pending Current Medications Acetaminophen (Tylenol) 650 mg RECTAL Q4H PRN PRN PRN Reason: Mild Pain (1-3)/Temp > 100.7 F Last Admin: 12/11/18 14:07 Dose: 650 mg Documented by: Acetaminophen (Tylenol Liquid) 650 mg GT Q4H PRN PRN PRN Reason: Fever > 102 or Pain Aspirin (Aspirin, Baby) 81 mg GT DAILY@0800 [facility] Last Admin: 12/12/18 08:45 Dose: 81 mg Documented by: Atorvastatin Calcium (Lipitor) 80 mg PO QHS [facility] Last Admin: 12/11/18 21:08 Dose: 80 mg Documented by: Atropine Sulfate () 0.5 mg IV UD PRN PRN Reason: HR <50 bpm Chlorhexidine Gluconate () 15 ml PO BID [facility] Last Admin: 12/12/18 08:46 Dose: 15 ml Documented by: Chlorhexidine Gluconate () 1 each TOPICAL DAILY [facility] Last Admin: 12/11/18 21:09 Dose: 1 each Documented by: Dextrose (D50w Syringe) 0 gm IV X1 PRN; Protocol PRN Reason: Hypoglycemia Diazepam (Valium) 5 mg PO Q6H PRN PRN PRN Reason: BACK SPASMS/ANXIETY Glucagon () 1 mg IM .X1 PRN PRN Reason: Hypoglycemia Heparin Sodium (Beef Lung) (Heparin 500 Unit/5 Ml (100/Ml)) 500 unit IV UD PRN PRN Reason: HEPARIN FLUSH Heparin Sodium (Beef Lung) () 50 units IV UD PRN PRN Reason: HEPARIN FLUSH Heparin Sodium (Porcine) (Heparin Na) 0 unit IV UD PRN; Protocol Last Admin: 12/10/18 23:08 Dose: 1,000 unit Documented by: Heparin Sodium/Sodium Chloride () 2,000 units IV UD [facility] Last Admin: 12/11/18 09:37 Dose: Not Given Documented by: Propofol (Diprivan) 1,000 mg in 100 mls @ 7.443 mls/hr CONT INF .Q12H [facility]; Protocol Last Admin: 12/12/18 07:26 Dose: Not Given Documented by: Heparin Sodium/Dextrose () 25,000 units in 250 mls @ 10 mls/hr IV .Q25H [facility]; Protocol Last Titration: 12/12/18 06:00 Dose: 1,100 units/hr, 11 mls/hr Documented by: Fentanyl () 100 mls @ 2.5 mls/hr IV UD [facility]; Protocol Last Titration: 12/12/18 06:00 Dose: 175 mcg/hr, 17.5 mls/hr Documented by: Pantoprazole Sodium 40 mg/ (Sodium Chloride) 110 mls @ 330 mls/hr IV Q12 [facility] Last Admin: 12/12/18 08:49 Dose: 330 mls/hr Documented by: Sodium Chloride () 250 mls @ 15 mls/hr IV .[id number] PRN PRN Reason: SALINE FLUSH Last Infusion: 12/11/18 17:56 Dose: Infused Documented by: Enteral Nutritional Formula (Vital Af 1.2 [place] Liquid) 1,000 mls @ 60 mls/hr GT .[id number] [facility] Last Admin: 12/12/18 07:25 Dose: Not Given Documented by: Piperacillin Sod/Tazobactam (Sod 3.375 gm/ Sodium Chloride) 50 mls @ 12.5 mls/hr IV Q8 [facility] Last Admin: 12/12/18 05:05 Dose: 12.5 mls/hr Documented by: Dexmedetomidine HCl 1,000 mcg/ (Sodium Chloride) 250 mls @ 31.013 mls/hr CONT INF .Q8H4M [facility]; Protocol Last Titration: 12/12/18 06:00 Dose: 1 mcg/kg/hr, 20.7 mls/hr Documented by: Norepinephrine Bitartrate 8 mg (/ Sodium Chloride) 250 mls @ 9.375 mls/hr CONT INF .[id number] [facility]; Protocol Last Titration: 12/12/18 06:00 Dose: 5 mcg/min, 9.4 mls/hr Documented by: Insulin Human Lispro (Humalog Kwikpen (Bkc)) 0 unit SC Q6 [facility]; Protocol Last Admin: 12/12/18 05:09 Dose: Not Given Documented by: Labetalol HCl (Trandate) 5 mg IV X1 PRN PRN Reason: SBP > 160 when pulling sheath Lisinopril (Zestril) 5 mg GT DAILY [facility] Last Admin: 12/12/18 08:46 Dose: Not Given Documented by: Metoclopramide HCl (Reglan) 5 mg IV Q6H PRN PRN PRN Reason: NAUSEA/VOMITING Metoprolol Tartrate (Lopressor (Beta Missy)) 12.5 mg GT BID [facility] Last Admin: 12/12/18 08:46 Dose: Not Given Documented by: Morphine Sulfate () 2 mg IV Q4H PRN PRN PRN Reason: Mild back pain (0-2/10) Nitroglycerin (Nitrostat) 0.4 mg SUBLINGUAL Q5M PRN PRN Reason: CARDIAC/CHEST PAIN Ondansetron HCl (Zofran) 4 mg IV Q8H PRN PRN PRN Reason: NAUSEA/VOMITING Polyethylene Glycol (Miralax) 17 gm PO DAILY PRN PRN Reason: Constipation Last Admin: 12/12/18 06:40 Dose: 17 gm Documented by: Quetiapine Fumarate (Seroquel) 50 mg PO BID [facility] Last Admin: 12/12/18 08:45 Dose: 50 mg Documented by: Senna/Docusate Sodium (Senokot-S, Jackelin-Colace) 2 tablet PO DAILY [facility] Last Admin: 12/12/18 08:45 Dose: 2 tablet Documented by: Sodium Chloride () 500 ml IV BOLUS PRN PRN Reason: VASO-VAGAL PROTOCOL Sodium Chloride () 10 - 40 ml IV UD PRN PRN Reason: SALINE FLUSH Last Admin: 12/11/18 05:33 Dose: 10 ml Documented by: Sodium Chloride () 10 - 40 ml IV UD PRN PRN Reason: PICC FLUSH Ticagrelor (Brilinta) 90 mg GT BID [facility] Last Admin: 12/12/18 08:45 Dose: 90 mg Documented by: Medical Necessity - Tobacco Use Smoking Status: Heavy Smoker (>10/day) Tobacco Use: Cigarettes Assessment/Plan All Active Problems STEMI (ST elevation myocardial infarction) (Acute) Ventricular fibrillation (Acute) Metabolic acidosis (Acute) Metabolic encephalopathy (Acute) Anoxic brain injury (Acute) 1. STEMI * Status post drug-eluting stent to the LAD * Cardiology following * On IABP at 1:1 * Patient did receive heparin, Integrilin, aspirin Brilinta * We will continue with aspirin, Brilinta and atorvastatin * Patient continue with balloon pump for now. Discussed with Dr. Vazquez, plan is to continue with the balloon pump until the * Patient will need to have lifelong tobacco cessation * Heparin drip while the balloon pump is in place 2. Acute respiratory failure * Intubated in the emergency room. * Vent management per critical care medicine * Possibly due to aspiration pneumonia, COPD, alveolar hemorrhage (s/p CPR) 3. Metabolic encephalopathy * Head CT showed some mild edema that could be an anoxic encephalopathy * Is unclear how long the patient was down the patient was noted to have sonorous respirations if * Patient did receive some CPR in the field by family, is unclear how effective that CPR was and patient did receive a shock by EMS * Patient will need repeat imaging to assess the degree of edema if it still persists at a later point preferably when he is more hemodynamically stable, however, if patient's condition does deteriorate then that not be performed much sooner. 4. VTE prophylaxis: Patient is anticoagulated but given the balloon pump and being critically ill will also add SCDs. 5. Groin rash * May be contact dermatitis from the Betadine/chlorhexidine that was used to sterilize his groin for the heart catheterization. The area has been demarcated with a marker. Will monitor but to hold off on antibiotics at this time. 6. Hypotension: * likely due to propofol, on norepi Code Visit Inpatient E&M: 70447 Subs Hosp L3
[2018-12-12 09:10] LABS: Partial Thromboplast Time 58.3 Seconds (24.1-36.2)
[2018-12-12 10:34] LABS: M R Staph aureus DNA By PCR Negative (Negative); Probe Check PASS; Specimen Processing Control PASS
[2018-12-12] MEDS: Propofol 10MG/Ml 1,000 MG/100 ML Bottle 5 MG CONT INF (10:44)
--- NOTE | 2018-12-12 10:56 | PCM.PN.CARD ---
Subjectve: Patient remains on mechanical ventilator last night patient did had an episode of desaturation the IV Precedex was changed to IV propofol and so far he is tolerating it well he remains on balloon pump one-to-one. She did received 40 mg IV Lasix earlier this morning and diuresed close to 800 cc of urine which is clear. Objective: Vital Signs Temp Pulse Resp BP Pulse Ox 100.8 F H 60 19 H 89/42 L 97 12/12/18 09:00 12/12/18 09:00 12/12/18 09:00 12/12/18 09:00 12/12/18 09:00 Oxygen Flow Rate (L/min) 50 Oxygen Delivery Method Mechanical Ventilator Weight: 182 lb 5.156 oz Body Mass Index (BMI) 27.3 Finger Stick Blood Glucose 206 Intake and Output for Last 24 Hours 12/10/18 12/11/18 12/12/18 23:59 23:59 23:59 Intake Total 1989.64 / 2013.79 2171.50 / 2317.88 1343.03 / 1343.03 Output Total 1166 / 1166 774 / 796 1124 / 1124 Balance 823.64 / 848.79 1397.50 / 1521.88 219.03 / 219.03 He remains on mechanical ventilator pupils are reacting appropriately heart S1-S2 present with no murmurs abdomen is soft bowel sounds are hypoactive right groin is clear with no evidence of hematoma the right dorsalis pedis is palpable remains sedated on IV propofol drip no inotropes at this time 12/11/18 11:50: APTT 50.4 H 12/11/18 18:30: APTT 66.9 H 12/11/18 23:55: APTT Cancelled 12/12/18 00:30: APTT 49.6 H 12/12/18 03:15: WBC 18.0 H, RBC 3.88 L, Hgb 12.4 L, Hct 37.9 L, MCV 97.7 H, MCH 32.0, MCHC 32.7, Plt Count 160, MPV 12.1 H, Immature Gran % (Auto) 0.600, Neut % (Auto) 77.5 H, Lymph % (Auto) 12.6 L, [place] % (Auto) 8.0, Eos % (Auto) 0.7, Baso % (Auto) 0.6, Absolute Neuts (auto) 14.0 H, Nucleated RBC % 0 12/12/18 03:15: Sodium 147 H, Potassium 4.0, Chloride 117 H, Carbon Dioxide 21.0, Anion Gap 9, BUN 18, Creatinine 1.47 H, Est GFR (MDRD) Af Amer 64, Est GFR (MDRD) Non-Af 52 L, BUN/Creatinine Ratio 12.2, Glucose 131 H, Calcium 7.6 L 12/12/18 03:15: B-Natriuretic Peptide 292.9 H 12/12/18 08:25: APTT 58.3 H Rhythm: EKG: ECHO: Stress Test: Cardiac Cath: PCI: CT Surgery: Holter monitor: EPS: PPM: CXR: Chest CT Scan: Medical Necessity - Tobacco Use Smoking Status: Heavy Smoker (>10/day) Tobacco Use: Cigarettes Assessment/Plan Status post acute anerior wall myocadial infarction with stunned myocardium involving the anterior and anteroapical mccormack of the ventricle with moderately depressed left ventricular systolic function ejection fraction of 35% . patient was resuscitated and is currently on intraaortic baloon pump one-to-one tolerating it well with good hemodynamics. Lasix 40 mg this morning and his diet is reasonably well. Will consider giving another dose of IV Lasix at 3 this afternoon and plan would be to remove the entirety balloon pump this evening and hopefully patient can be extubated tomorrow if he does well from pulmonary point of view. Discussed with Dr. James Baron pulmonary services who agrees with the current plan 2.We will continue patient on low-dose IV heparin protocol to decrease risk of thrombosis in the lower extremities from the intra aortic balloon pump Patient on dual antibiotic therapy and patient she did on NG feedings and will add free water due to increased sodium levels 4. Starting patient on Coreg as well as EMMANUEL inhibitors with maintenance dose of diuretics starting tomorrow once he is extubated 5. will start Patient on statin therapy down the NG tube from this evening
[2018-12-12] MEDS: Propofol 10MG/Ml 1,000 MG/100 ML Bottle 14.9 MG CONT INF (11:33)
[2018-12-12 11:40] LABS: Bedside Glucose 114 mg/dL (70-110)
--- NOTE | 2018-12-12 16:58 | NURSING ---
Dr Jon at bedside to discontinue balloon pump. Catheter and sheath removed without complication.
--- NOTE | 2018-12-12 17:20 | PN.CARD_ITS ---
Objective: Vital Signs Temp Pulse Resp BP Pulse Ox 100.9 F H 62 16 88/51 L 99 12/12/18 15:56 12/12/18 15:56 12/12/18 15:56 12/12/18 15:56 12/12/18 15:56 Oxygen Flow Rate (L/min) 50 Oxygen Delivery Method Mechanical Ventilator Weight: 182 lb 5.156 oz Body Mass Index (BMI) 27.3 Finger Stick Blood Glucose 206 Intake and Output for Last 24 Hours 12/10/18 12/11/18 12/12/18 23:59 23:59 23:59 Intake Total / 2171.50 / 2317.88 2577.65 / 2577.65 Output Total 1166 / 1166 774 / 796 1884 / 1884 Balance 823.64 / 848.79 1397.50 / 1521.88 693.65 / 693.65 12/11/18 18:30: APTT 66.9 H 12/11/18 23:55: APTT Cancelled 12/12/18 00:30: APTT 49.6 H 12/12/18 03:15: WBC 18.0 H, RBC 3.88 L, Hgb 12.4 L, Hct 37.9 L, MCV 97.7 H, MCH 32.0, MCHC 32.7, Plt Count 160, MPV 12.1 H, Immature Gran % (Auto) 0.600, Neut % (Auto) 77.5 H, Lymph % (Auto) 12.6 L, [place] % (Auto) 8.0, Eos % (Auto) 0.7, Baso % (Auto) 0.6, Absolute Neuts (auto) 14.0 H, Nucleated RBC % 0 12/12/18 03:15: Sodium 147 H, Potassium 4.0, Chloride 117 H, Carbon Dioxide 21.0, Anion Gap 9, BUN 18, Creatinine 1.47 H, Est GFR (MDRD) Af Amer 64, Est GFR (MDRD) Non-Af 52 L, BUN/Creatinine Ratio 12.2, Glucose 131 H, Calcium 7.6 L 12/12/18 03:15: B-Natriuretic Peptide 292.9 H 12/12/18 08:25: APTT 58.3 H Rhythm: EKG: ECHO: Stress Test: Cardiac Cath: PCI: CT Surgery: Holter monitor: EPS: PPM: CXR: Chest CT Scan: Medical Necessity - Tobacco Use Smoking Status: Heavy Smoker (>10/day) Tobacco Use: Cigarettes Assessment/Plan Removal of intra-aortic balloon pump Was placed in 1-4 for at least 1 hour prior to removal the balloon pump. Heparin has been discontinued and the intra aortic balloon pump sheath was removed along with the balloon pump and hemostasis was achieved after applying pressure for at least 20 minutes. A pressure dressing was applied in place and patient tolerated procedure well with no complications. His blood pressure remained stable with a systolic of 112/60 mmHg
[2018-12-12] MEDS: LORazepam 2 MG/ML Syringe IV (17:55)
[2018-12-12 18:51] LABS: Bedside Glucose 107 mg/dL (70-110)
[2018-12-12] MEDS: Propofol 10MG/Ml 1,000 MG/100 ML Bottle 24.8 MG CONT INF (19:45)
[2018-12-12] MEDS: Atorvastatin Calcium 80 MG Tablet PO (21:25)
[2018-12-12] MEDS: fentaNYL drip 100 ML 20 MCG IV (22:42)
[2018-12-12] MEDS: Propofol 10MG/Ml 1,000 MG/100 ML Bottle 19.8 MG CONT INF (23:55)
[2018-12-13] VITALS (39 sets, daily range): BP systolic 96–148; BP diastolic 43–74; PULSE 76–129; RESP 14–29; TEMP 37.9–38.8; O2SAT 92–100
[2018-12-13 00:56] LABS: Bedside Glucose 106 mg/dL (70-110)
[2018-12-13] MEDS: Propofol 10MG/Ml 1,000 MG/100 ML Bottle 19.8 MG CONT INF ×3 (04:21→22:54)
[2018-12-13] MEDS: fentaNYL drip 100 ML 17.5 MCG IV ×2 (05:07→12:38)
[2018-12-13 06:46] LABS: Bedside Glucose 90 mg/dL (70-110)
--- NOTE | 2018-12-13 07:16 | PN_ITS ---
Subjective: The patient was seen and examined at the bedside this morning. Events from the last 24 hours have been reviewed. The patient is currently febrile with a T-max overnight of 101.7?F. The patient's Levophed was able to be weaned off last evening at 1035. The intra-aortic balloon pump has been removed. The patient failed his spontaneous awakening trial this morning due to agitation and desaturations. No breathing trial was therefore attempted. The patient is currently documented to be overall net +2.4 L for the admission. Attempts previously to utilize Precedex proved unsuccessful in controlling the patient's agitation during spontaneous awakening trials. He remains on propofol and fentanyl for sedation this morning. In addition, the patient is on scheduled Seroquel 50 mg twice daily. Objective: The patient's most recent lab work, culture data and imaging studies have all been personally reviewed. Surface echocardiogram revealed an LVEF of approximately 35 to 40%. Right ventricular systolic pressure was estimated to be 22 mmHg. Sputum Gram stain dated December 11 was positive for a gram-negative clark. Presumptive urinary culture is positive for E. coli. Blood cultures are pending. General: - - Remains intubated, sedated and mechanically ventilated. HEENT: Atraumatic, PERRLA, Normocephalic Oral: No Gingival or Mucosal Lesions/ Ulcerations, - - Endotracheal and OG tubes in place Neck: Supple, No Nodes, Trachea Midline Lungs: No rhonchi, No wheeze, No rales, Diminished Cardiovascular: Regular rate, Regular Rhythm, Normal S1, Normal S2, No murmurs Abdomen: Bowel Sounds Present, Soft, Non Tender Extremities: No clubbing, No cyanosis Skin: No breakdown Musculoskeletal: No Tenderness to Palpation of Joints or Extremities Lymphatic: No Cervical, Supraclavicular, or Inguinal Adenopathy Neurological: Cranial nerves II-XII grossly intact, Neuro grossly intact Psych/Mental Status: - - Intermittently agitated and restless, depending on level of sedation. Vital Signs Temp Pulse Resp BP Pulse Ox 101.4 F H 111 H 29 H 143/57 H 97 12/13/18 06:00 12/13/18 06:00 12/13/18 06:00 12/13/18 06:00 12/13/18 06:00 Oxygen Flow Rate (L/min) 50 Oxygen Delivery Method Mechanical Ventilator Weight: 186 lb 8.177 oz Body Mass Index (BMI) 27.3 Finger Stick Blood Glucose 206 Intake and Output for Last 24 Hours 12/11/18 12/12/18 12/13/18 23:59 23:59 23:59 Intake Total 2171.50 / 2317.88 3503.64 / 3809.64 506.85 / 506.85 Output Total 774 / 796 2684 / 3334 1150 / 1150 Balance 1397.50 / 1521.88 819.64 / 475.64 -643.15 / -643.15 Labs (Last 48 Hours) 12/11/18 12/11/18 12/11/18 11:50 11:52 18:00 WBC RBC Hgb Hct MCV MCH MCHC RDW Std Deviation RDW Coeff of [place] Plt Count MPV Immature Gran % (Auto) Neut % (Auto) Lymph % (Auto) Sutter % (Auto) Eos % (Auto) Baso % (Auto) Absolute Neuts (auto) Absolute Lymphs (auto) Nucleated RBC % APTT 50.4 H Sodium Potassium Chloride Carbon Dioxide Anion Gap BUN Creatinine Estim Creat Clear Calc Est GFR (MDRD) Af Amer Est GFR (MDRD) Non-Af BUN/Creatinine Ratio Glucose Calcium B-Natriuretic Peptide MRSA (PCR) POC Glucose 117 H 112 H 12/11/18 12/11/18 12/12/18 18:30 23:55 00:13 WBC RBC Hgb Hct MCV MCH MCHC RDW Std Deviation RDW Coeff of [place] Plt Count MPV Immature Gran % (Auto) Neut % (Auto) Lymph % (Auto) Sutter % (Auto) Eos % (Auto) Baso % (Auto) Absolute Neuts (auto) Absolute Lymphs (auto) Nucleated RBC % APTT 66.9 H Cancelled Sodium Potassium Chloride Carbon Dioxide Anion Gap BUN Creatinine Estim Creat Clear Calc Est GFR (MDRD) Af Amer Est GFR (MDRD) Non-Af BUN/Creatinine Ratio Glucose Calcium B-Natriuretic Peptide MRSA (PCR) POC Glucose 129 H 12/12/18 12/12/18 12/12/18 00:30 03:15 03:15 WBC 18.0 H RBC 3.88 L Hgb 12.4 L Hct 37.9 L MCV 97.7 H MCH 32.0 MCHC 32.7 RDW Std Deviation 48.5 H RDW Coeff of [place] 13.6 Plt Count 160 MPV 12.1 H Immature Gran % (Auto) 0.600 Neut % (Auto) 77.5 H Lymph % (Auto) 12.6 L Sutter % (Auto) 8.0 Eos % (Auto) 0.7 Baso % (Auto) 0.6 Absolute Neuts (auto) 14.0 H Absolute Lymphs (auto) 2.27 Nucleated RBC % 0 APTT 49.6 H Sodium 147 H Potassium 4.0 Chloride 117 H Carbon Dioxide 21.0 Anion Gap 9 BUN 18 Creatinine 1.47 H Estim Creat Clear Calc 59.05 Est GFR (MDRD) Af Amer 64 Est GFR (MDRD) Non-Af 52 L BUN/Creatinine Ratio 12.2 Glucose 131 H Calcium 7.6 L B-Natriuretic Peptide MRSA (PCR) POC Glucose 12/12/18 12/12/18 12/12/18 03:15 05:09 06:35 WBC RBC Hgb Hct MCV MCH MCHC RDW Std Deviation RDW Coeff of [place] Plt Count MPV Immature Gran % (Auto) Neut % (Auto) Lymph % (Auto) Sutter % (Auto) Eos % (Auto) Baso % (Auto) Absolute Neuts (auto) Absolute Lymphs (auto) Nucleated RBC % APTT Sodium Potassium Chloride Carbon Dioxide Anion Gap BUN Creatinine Estim Creat Clear Calc Est GFR (MDRD) Af Amer Est GFR (MDRD) Non-Af BUN/Creatinine Ratio Glucose Calcium B-Natriuretic Peptide 292.9 H MRSA (PCR) Negative POC Glucose 96 12/12/18 12/12/18 12/12/18 08:25 11:31 18:45 WBC RBC Hgb Hct MCV MCH MCHC RDW Std Deviation RDW Coeff of [place] Plt Count MPV Immature Gran % (Auto) Neut % (Auto) Lymph % (Auto) Sutter % (Auto) Eos % (Auto) Baso % (Auto) Absolute Neuts (auto) Absolute Lymphs (auto) Nucleated RBC % APTT 58.3 H Sodium Potassium Chloride Carbon Dioxide Anion Gap BUN Creatinine Estim Creat Clear Calc Est GFR (MDRD) Af Amer Est GFR (MDRD) Non-Af BUN/Creatinine Ratio Glucose Calcium B-Natriuretic Peptide MRSA (PCR) POC Glucose 114 H 107 12/13/18 12/13/18 12/13/18 00:49 06:17 06:25 WBC RBC Hgb Hct MCV MCH MCHC RDW Std Deviation RDW Coeff of [place] Plt Count MPV Immature Gran % (Auto) Neut % (Auto) Lymph % (Auto) Sutter % (Auto) Eos % (Auto) Baso % (Auto) Absolute Neuts (auto) Absolute Lymphs (auto) Nucleated RBC % APTT Sodium Potassium Chloride Carbon Dioxide Anion Gap BUN Creatinine Estim Creat Clear Calc Est GFR (MDRD) Af Amer Est GFR (MDRD) Non-Af BUN/Creatinine Ratio Glucose Calcium B-Natriuretic Peptide Pending MRSA (PCR) POC Glucose 106 90 Microbiology 12/11/18 19:40 Urine Catheter - Angel Urine Culture - Preliminary Presumptive E. coli 12/11/18 09:28 Sputum, Induced/Lukens Gram Stain - Final 12/11/18 09:28 Sputum, Induced/Lukens Respiratory Culture - Preliminary GNR lactose middle school coach 12/11/18 02:00 Sputum, Induced/Lukens Gram Stain - Final 12/11/18 02:00 Sputum, Induced/Lukens Respiratory Culture - Preliminary GNR lactose middle school coach Clinical Impression(s) from Imaging Studies Brain CT 12/10/18 05:39 IMPRESSION: Possible mild edema. Possible anoxic brain injury. No acute hemorrhage or overt ischemic changes on submitted images. These findings were discussed on the telephone with Dr. Guthrie at 608 hrs. EST on 12/10/2018. Electronically Signed: Urvashi Arnold MD at 6:12 EDT , Service support , ADDENDUM: 12/10/18 0620 IMPRESSION: Possible mild edema. Possible anoxic brain injury. No acute hemorrhage or overt ischemic changes on submitted images. These findings were discussed on the telephone with Dr. Guthrie at 608 hrs. EST on 12/10/2018. N.B. : The above information has been verbally conveyed by Urvashi Arnold MD to Shantelle Guthrie MD, MD, on 12/10/2018 06:13:33 (ET). Electronically Signed: Urvashi Arnold MD at 6:12 EDT , Service support , Chest X-Ray 12/10/18 05:40 IMPRESSION: Probable vascular congestion. Possible underlying component of COPD. Lines appear in good position. Electronically Signed: Urvashi Arnold MD at 6:01 EDT , Service support , Chest X-Ray 12/10/18 08:40 IMPRESSION: Stable examination demonstrating mild degree of vascular congestion. The support tubes are unchanged. Electronically Signed: Martín Escudero, at 14:08 EDT , Service support , Chest X-Ray 12/10/18 12:02 IMPRESSION: No interval change, stable appearance of the previously noted support lines and tubes. Left-sided PICC line tip in the distal SVC Electronically Signed: Chris Harrell MD at 13:01 EDT , Service support , Chest X-Ray 12/11/18 05:55 IMPRESSION: Lines as above. Improved aeration, decrease of interstitial opacification particularly in the right upper lung. Electronically Signed: Urvashi Arnold MD at 6:13 EDT , Service support , Chest X-Ray 12/11/18 12:30 IMPRESSION: No change. at 2322 Reported and signed by: Rico Bauman MD Electronically Signed: Rico Bauman MD at 23:21 EDT Tel , Service support , Chest X-Ray 12/12/18 02:10 IMPRESSION: No change. at 0245 Reported and signed by: Rico Bauman MD Electronically Signed: Rico Bauman MD at 2:44 EDT Tel , Service support , Medical Necessity - Tobacco Use Smoking Status: Heavy Smoker (>10/day) Tobacco Use: Cigarettes Assessment/Plan All Active Problems (Last Updated 12/13/18 @ 15:47 by Zaina Hebert) STEMI (ST elevation myocardial infarction) (Acute) Ventricular fibrillation (Acute) Metabolic acidosis (Acute) Metabolic encephalopathy (Acute) Anoxic brain injury (Acute) RECOMMENDATIONS: 1. Would recommend holding EMMANUEL inhibitor and Lasix, given worsening renal insufficiency. 2. Given the patient's extensive tobacco abuse history, recommend starting nicotine replacement therapy. 3. Continue propofol and fentanyl for sedation. Consider upward titration of Seroquel. 4. Continue Zosyn, pending finalized culture data. 5. Continue tube feeds. IMPRESSIONS: 1. Ventricular fibrillation arrest secondary to ST elevation NE The patient did require emergent angioplasty with drug-eluting stent placement to his mid LAD following arrival to the hospital. He has a severely depressed ejection fraction. However, in light of all of this, the patient has been able to be weaned from vasopressor support. He remains hemodynamically stable at this time. Continue medical management per cardiology recommendations. 2. Acute hypoxemic respiratory failure The patient does have an extensive smoking history and likely has a component of underlying obstructive lung disease. In addition, the patient is currently growing gram negatives from his sputum raising the concern for potential aspiration. He is on appropriate antimicrobial coverage at this time. Recommend continuing bronchodilators. At this time, it is the patient's agitation which is limiting his ability to be extubated and not his volume status. We will plan to increase his Seroquel dose, with plans to repeat his spontaneous awakening trial tomorrow. 3. Acute upper GI bleed Clinical suspicion for stress gastritis given presentation. Continue with Proton ix for now. Blood counts are stable. No current indication for transfusion of blood products. 4. Metabolic encephalopathy/possible anoxic encephalopathy CT scan in the ER did show some mild edema and patient was noted to have a decreased mental status on presentation. Patient is currently on propofol and fentanyl to help with vent synchrony. We will continue to monitor. CT head to be repeated today. 5. Hypokalemia Electrolyte repletion as ordered. Recheck levels in the morning. 6. Tobacco abuse/poor history/unclear primary care Complicates care, management, recovery and prognosis. Outpatient pulmonary function test for evaluation of COPD would be appropriate. The patient will be started on nicotine replacement therapy today. TIME: 40 minutes of critical care time, independent of procedures, was spent addressing the patient's ST segment elevation NE, out of hospital cardiac arrest, acute respiratory failure, anemia, metabolic encephalopathy, hypokalemia, review of all data and collaboration with the care team. (0800- 0900) Code Visit 9xxxx: [id number] Critical care first hour
[2018-12-13] MEDS: Furosemide 40 MG/4 ML Vial IV ×2 (07:20→17:16)
[2018-12-13] MEDS: 0.9% NaCl Peripheral Flush Adult/Peds IV ×3 (07:25→17:16)
--- NOTE | 2018-12-13 07:33 | PN_ITS ---
Patient Problems: Active and Suspected Problems STEMI (ST elevation myocardial infarction) (Acute) Ventricular fibrillation (Acute) Metabolic acidosis (Acute) Metabolic encephalopathy (Acute) Anoxic brain injury (Acute) Upper GI hemorrhage (Suspected) Subjective: Patient is a 58-year-old gentleman admitted after he was found unresponsive. An assessment of acute ST segment elevation DC made. Patient underwent emergent left heart catheterization with stent placed to his LAD. Postprocedure patient became hypotensive stating the use of IABP. He was also found to be in acute respiratory failure and subsequently intubated and admitted to the intensive care unit. CT obtained on 12/10/2018 reported possible edema with possible anoxic brain injury plan is to repeat CAT scan today. Patient apparently did fill weaning trial this a.m. Objective: GENERAL: Sedated on the vent HEENT: ET tube in place EYES; Anicteric, Normal Conjunctiva NECK; supple, normal thyroid, RESPIRATORY: Diminished to auscultation CARDIOVASCULAR: Regular S1 S2, GI: soft, non-tender, normoactive bowel sounds, : No Renal angle tenderness; EXTREMITIES: No edema, no clubbing, no cyanosis. MUSCULOSKELETAL: No no muscle waisting NEURO: Unable to assess patient is sedated on the vent SKIN: No Rash PSYCH; unable to assess Vitals/I&O's: Vital Signs Temp Pulse Resp BP Pulse Ox 101.4 F H 111 H 29 H 143/57 H 97 12/13/18 06:00 12/13/18 06:00 12/13/18 06:00 12/13/18 06:00 12/13/18 06:00 Oxygen Flow Rate (L/min) 50 Oxygen Delivery Method Mechanical Ventilator Weight: 84.6 kg Body Mass Index (BMI) 27.3 Finger Stick Blood Glucose 206 Intake and Output for Last 24 Hours 12/11/18 12/12/18 12/13/18 23:59 23:59 23:59 Intake Total 2171.50 / 2317.88 3503.64 / 3809.64 506.85 / 506.85 Output Total 774 / 796 2684 / 3334 1150 / 1150 Balance 1397.50 / 1521.88 819.64 / 475.64 -643.15 / -643.15 Microbiology Past 72 Hours 12/11/18 19:40 Urine Catheter - Angel Urine Culture - Preliminary Presumptive E. coli 12/11/18 09:28 Sputum, Induced/Lukens Gram Stain - Final 12/11/18 09:28 Sputum, Induced/Lukens Respiratory Culture - Preliminary GNR lactose release of information specialist 12/11/18 02:00 Sputum, Induced/Lukens Gram Stain - Final 12/11/18 02:00 Sputum, Induced/Lukens Respiratory Culture - Preliminary GNR lactose release of information specialist Laboratory Results 12/12/18 06:35: MRSA (PCR) Negative 12/12/18 08:25: APTT 58.3 H 12/12/18 11:31: POC Glucose 114 H 12/12/18 18:45: POC Glucose 107 12/13/18 00:49: POC Glucose 106 12/13/18 06:17: POC Glucose 90 12/13/18 06:25: B-Natriuretic Peptide Pending Current Medications Acetaminophen (Tylenol) 650 mg RECTAL Q4H PRN PRN PRN Reason: Mild Pain (1-3)/Temp > 100.7 F Last Admin: 12/11/18 14:07 Dose: 650 mg Documented by: Acetaminophen (Tylenol Liquid) 650 mg GT Q4H PRN PRN PRN Reason: Fever > 102 or Pain Aspirin (Aspirin, Baby) 81 mg GT DAILY@0800 [facility] Last Admin: 12/12/18 08:45 Dose: 81 mg Documented by: Atorvastatin Calcium (Lipitor) 80 mg PO QHS [facility] Last Admin: 12/12/18 21:25 Dose: 80 mg Documented by: Atropine Sulfate () 0.5 mg IV UD PRN PRN Reason: HR <50 bpm Chlorhexidine Gluconate () 15 ml PO BID [facility] Last Admin: 12/12/18 21:29 Dose: 15 ml Documented by: Chlorhexidine Gluconate () 1 each TOPICAL DAILY [facility] Last Admin: 12/11/18 21:09 Dose: 1 each Documented by: Dextrose (D50w Syringe) 0 gm IV X1 PRN; Protocol PRN Reason: Hypoglycemia Diazepam (Valium) 5 mg PO Q6H PRN PRN PRN Reason: BACK SPASMS/ANXIETY Glucagon () 1 mg IM .X1 PRN PRN Reason: Hypoglycemia Heparin Sodium (Beef Lung) (Heparin 500 Unit/5 Ml (100/Ml)) 500 unit IV UD PRN PRN Reason: HEPARIN FLUSH Heparin Sodium (Beef Lung) () 50 units IV UD PRN PRN Reason: HEPARIN FLUSH Heparin Sodium (Porcine) (Heparin Na) 0 unit IV UD PRN; Protocol Last Admin: 12/10/18 23:08 Dose: 1,000 unit Documented by: Heparin Sodium/Sodium Chloride () 2,000 units IV UD SCOTT Last Admin: 12/12/18 09:11 Dose: Not Given Documented by: Propofol (Diprivan) 1,000 mg in 100 mls @ 7.443 mls/hr CONT INF .Q12H [facility]; Protocol Last Admin: 12/13/18 04:21 Dose: 40 mcg/kg/min, 19.8 mls/hr Documented by: Fentanyl () 100 mls @ 2.5 mls/hr IV UD [facility]; Protocol Last Admin: 12/13/18 05:07 Dose: 175 mcg/hr, 17.5 mls/hr Documented by: Pantoprazole Sodium 40 mg/ (Sodium Chloride) 110 mls @ 330 mls/hr IV Q12 SCOTT Last Infusion: 12/12/18 21:43 Dose: Infused Documented by: Sodium Chloride () 250 mls @ 15 mls/hr IV .[id number] PRN PRN Reason: SALINE FLUSH Last Infusion: 12/11/18 17:56 Dose: Infused Documented by: Enteral Nutritional Formula (Vital Af 1.2 Brent Liquid) 1,000 mls @ 60 mls/hr GT .[id number] SCOTT Last Admin: 12/12/18 22:00 Dose: Not Given Documented by: Piperacillin Sod/Tazobactam (Sod 3.375 gm/ Sodium Chloride) 50 mls @ 12.5 mls/hr IV Q8 SCOTT Last Admin: 12/13/18 06:30 Dose: 12.5 mls/hr Documented by: Dexmedetomidine HCl 1,000 mcg/ (Sodium Chloride) 250 mls @ 31.013 mls/hr CONT INF .Q8H4M [facility]; Protocol Last Admin: 12/13/18 01:22 Dose: Not Given Documented by: Norepinephrine Bitartrate 8 mg (/ Sodium Chloride) 250 mls @ 9.375 mls/hr CONT INF .[id number] [facility]; Protocol Last Titration: 12/13/18 00:15 Dose: 0 mcg/min, 0 mls/hr Documented by: Insulin Human Lispro (Humalog Kwikpen (Bkc)) 0 unit SC Q6 [facility]; Protocol Last Admin: 12/13/18 06:43 Dose: Not Given Documented by: Labetalol HCl (Trandate) 5 mg IV X1 PRN PRN Reason: SBP > 160 when pulling sheath Lisinopril (Zestril) 5 mg GT DAILY [facility] Last Admin: 12/12/18 08:46 Dose: Not Given Documented by: Metoclopramide HCl (Reglan) 5 mg IV Q6H PRN PRN PRN Reason: NAUSEA/VOMITING Metoprolol Tartrate (Lopressor (Beta Missy)) 12.5 mg GT BID [facility] Last Admin: 12/12/18 21:28 Dose: Not Given Documented by: Morphine Sulfate () 2 mg IV Q4H PRN PRN PRN Reason: Mild back pain (0-2/10) Nitroglycerin (Nitrostat) 0.4 mg SUBLINGUAL Q5M PRN PRN Reason: CARDIAC/CHEST PAIN Ondansetron HCl (Zofran) 4 mg IV Q8H PRN PRN PRN Reason: NAUSEA/VOMITING Polyethylene Glycol (Miralax) 17 gm PO DAILY PRN PRN Reason: Constipation Last Admin: 12/12/18 06:40 Dose: 17 gm Documented by: Quetiapine Fumarate (Seroquel) 50 mg PO BID [facility] Last Admin: 12/12/18 21:25 Dose: 50 mg Documented by: Senna/Docusate Sodium (Senokot-S, Jackelin-Colace) 2 tablet PO DAILY [facility] Last Admin: 12/12/18 08:45 Dose: 2 tablet Documented by: Sodium Chloride () 500 ml IV BOLUS PRN PRN Reason: VASO-VAGAL PROTOCOL Sodium Chloride () 10 - 40 ml IV UD PRN PRN Reason: SALINE FLUSH Last Admin: 12/13/18 07:25 Dose: 40 ml Documented by: Sodium Chloride () 10 - 40 ml IV UD PRN PRN Reason: PICC FLUSH Ticagrelor (Brilinta) 90 mg GT BID [facility] Last Admin: 12/12/18 21:28 Dose: 90 mg Documented by: Medical Necessity - Tobacco Use Smoking Status: Heavy Smoker (>10/day) Tobacco Use: Cigarettes Assessment/Plan All Active Problems STEMI (ST elevation myocardial infarction) (Acute) Ventricular fibrillation (Acute) Metabolic acidosis (Acute) Metabolic encephalopathy (Acute) Anoxic brain injury (Acute) Patient is a 58-year-old gentleman admitted after he was found unresponsive. An assessment of acute ST segment elevation DC made. Patient underwent emergent left heart catheterization with stent placed to his LAD. Postprocedure patient became hypotensive stating the use of IABP. He was also found to be in acute respiratory failure and subsequently intubated and admitted to the intensive care unit. 1. Acute ST segment elevation DC ~patient underwent emergency left heart catheterization with PCI/MARY ELLEN to an LAD lesion 2018 2. Cardiogenic shock ~ patient was managed on IABP which was removed on 12/12/2018 3. Acute hypoxic respiratory failure secondary to patient cardiogenic shock as well as acute ST elevation DC with underlying COPD ~Patient admitted to the intensive care unit vent management deferred to pulmonary medicine. Attempted weaning on 12/13/2018 was unsuccessful 4. Suspected anoxic brain injury ~CT obtained on 12/10/2018 reported possible edema with possible anoxic brain injury plan is to repeat CAT scan 12/13/2018. 5. Encephalopathy suspected to be secondary to anoxic brain injury 6. DVT prophylaxis patient is on heparin 7. Tobacco dependence ~ do plan to mitochondrial disorders counselor once patient is off the vent 8. Hypokalemia ~ corrected per protocol Code Visit Inpatient E&M: 18552 [facility] L[facility]
[2018-12-13 07:55] LABS: Anion Gap 6 (5-15); BUN 18 mg/dL (7-18); Calcium,Total 7.6 mg/dL (8.5-10.1); Chloride 112 mmol/L (98-107); Creatinine, Serum 1.29 mg/dL (0.70-1.30); EST Glomerular Filtration Rate 61 mL/min (>60); Est Glom Filt Rate - Afr Amer 74 mL/min (>60); Estimated Creatinine Clearance 67.29 ml/min; Glucose 102 mg/dL (74-106); Potassium 3.2 mmol/L (3.5-5.1); Sodium Level 143 mmol/L (136-145)
--- NOTE | 2018-12-13 08:01 | CT_ITS ---
STUDY: CT BRAIN WITHOUT CONTRAST REASON FOR EXAM: Male, 58 years old. Anoxic brain injury. RADIATION DOSAGE (If Supplied By Facility): CTDIvol = ( 44.99 ) mGy, DLP = ( 829.85 ) mGycm TECHNIQUE: Transaxial CT imaging of the brain was performed without administration of intravenous contrast material. Individualized dose optimization techniques were used for this CT. COMPARISON: Comparison is made with prior study dated December 10, 2018. FINDINGS: Normal soft tissue structures. Normal calvarium. Once again, there is evidence of mild effacement of the sulcal and gyral pattern. Normal white matter tracts of the cerebral hemispheres. Normal basal ganglia and thalami. Normal brainstem. Normal cerebellum. There is no intracranial hemorrhage. There are no findings of an acute ischemic infarction. Opacification of the frontal sinuses, ethmoid sinus and sphenoid sinus. CT/Brain/Head without Contrast IMPRESSION: Stable examination. Sinusitis. Electronically Signed: Martín Escudero, at 13:50 EDT , Service support ,
[2018-12-13] MEDS: CHLORHEXIDINE GLUC 2% CLOTH 1 EACH TOWELETTE TOPICAL (08:30)
--- NOTE | 2018-12-13 08:42 | PCM.PN.CARD ---
Subjectve: Patient doing well this morning, still intubated, intrinsic balloon pump removed yesterday with right groin clean/dry/intact. Telemetry negative. EKG shows normal sinus rhythm with resolving anterior wall myocardial infarction. Patient is approximately 8 L positive since admission. Urine output is good. Creatinine 1.2. Patient had elevation of white blood cell count, and is being treated for aspiration pneumonia. Patient reportedly neurologically sound, although currently sedated on propofol and fentanyl drip. Objective: Vital Signs Temp Pulse Resp BP Pulse Ox 101 F H 91 20 H 129/52 H 97 12/13/18 08:00 12/13/18 08:00 12/13/18 08:00 12/13/18 08:00 12/13/18 08:00 Oxygen Flow Rate (L/min) 50 Oxygen Delivery Method Mechanical Ventilator Weight: 186 lb 8.177 oz Body Mass Index (BMI) 27.3 Finger Stick Blood Glucose 206 Intake and Output for Last 24 Hours 12/11/18 12/12/18 12/13/18 23:59 23:59 23:59 Intake Total 2171.50 / 2317.88 3503.64 / 3809.64 629.58 / 629.58 Output Total 774 / 796 2684 / 3334 1150 / 1150 Balance 1397.50 / 1521.88 819.64 / 475.64 -520.42 / -520.42 General: Awake, Alert, Oriented x 3 HEENT: PERRL, EOMI, Sclera Non Icteric Neck: Supple, Good ROM, No Lymph Node Enlargement Lungs: Clear to auscultation Cardiovascular: Regular Rhythm, Normal S1, Normal S2, No Murmurs, No Rubs, No Gallops 12/12/18 08:25: APTT 58.3 H 12/13/18 06:25: Sodium 143, Potassium 3.2 L, Chloride 112 H, Carbon Dioxide 25.0, Anion Gap 6, BUN 18, Creatinine 1.29, Est GFR (MDRD) Af Amer 74, Est GFR (MDRD) Non-Af 61, BUN/Creatinine Ratio 14.0, Glucose 102, Calcium 7.6 L Rhythm: EKG: ECHO: Stress Test: Cardiac Cath: PCI: CT Surgery: Holter monitor: EPS: PPM: CXR: Chest CT Scan: Medical Necessity - Tobacco Use Smoking Status: Heavy Smoker (>10/day) Tobacco Use: Cigarettes Assessment/Plan 1. Coronary artery disease: The patient is status post emergent angioplasty and drug-eluting stenting to his mid LAD with balloon only angioplasty to the ostium of the diagonal branch. Left circumflex and RCA showed minimal nonobstructive coronary disease. LVEF was 35%. This was superimposed on V. fib arrest at home, requiring 1 defibrillation. The patient is status post intra-aortic balloon pump, which was removed on 12/12/2018. His right groin is clean/dry/intact without evidence of thrills, bruits or hematoma. He has 2+ DP and PT pulses bilaterally. At this point the patient is several liters positive, approximately 8 L by my estimation, although his chest x-ray does not show overt evidence of congestive heart failure they are having some difficulty with extubation. Recommend Lasix IV 40 mg twice daily in order to bring him back in to euvolemic fluid balance. Would recommend max concentrating all fluids, and a 1500 cc fluid restriction. We will hold off on starting beta-blockers until after he is euvolemic. Continue lisinopril for LV dysfunction. 2. LV dysfunction: The patient's ejection fraction was approximately 35 to 40% post procedure, confirmed by echocardiogram, recommend continuing EMMANUEL inhibitor therapy. Once the patient's out of heart failure, we will initiate Coreg 3.125 mg p.o. twice daily and titrate up from there. Recommend repeating his echocardiogram at the conclusion of cardiac rehab to determine if his LV function has normalized. If it has not normalized, the patient may require an AICD placement. 3. Hyperlipidemia: Continue statin based medications. 4. Pulmonary status: Patient is currently intubated and has been since the night of his arrest. Appreciate Dr. Baron's and pulmonary intensive care assistance. We will attempt extubation after weaning parameters are achieved tomorrow morning. 5. Thank you very much for the opportunity to participate in the cardiac care of your patient. Code Visit Inpatient E&M: [id number] [facility] L3
[2018-12-13 08:59] LABS: Absolute Lymphocyte Count 0.81 X10^3/uL (0.83-4.51); Absolute Neutrophil Count 9.1 X10^3/uL (2.0-7.7); Basophil# 0.03 X10^3/uL; Basophil% 0.3 % (0-1); Eosinophil# 0.15 X10^3/uL; Eosinophils% 1.4 % (0-5); Hematocrit 30.9 % (40-54); Hemoglobin 10.5 g/dL (13.0-16.5); Lymphocyte # 0.81 X10^3/ul (4.0); Lymphocyte % 7.5 % (19-41); Mean Corpuscular Hgb 31.9 pg (27.0-32.0); Mean Corpuscular Volume 93.9 fL (80-94); Mean Platelet Vol. 12.4 fl (6.2-12.0); Monocyte# 0.63 X10^3/uL; Monocyte% 5.8 % (0-10); NRBC Flagged by Analyzer 0 % (0-5); Neutrophil # 9.13 X10^3/uL (2.7-7.7); Neutrophil % 84.4 % (47-70); Platelet Count 130 K/mm3 (150-450); RBC Distribution Width CV 13.7 % (11.6-14.6); Red Blood Count 3.29 M/mm3 (4.6-6.2); White Blood Count 10.8 K/mm3 (4.4-11.0)
--- NOTE | 2018-12-13 09:15 | CASEMGMT ---
RN CM Assessment: participated in iCU rounds. Pt's brother was available to round. Pt remains on ventilator. Did not pass awake trial, so breathing trial was postponed. Pt remains on Lasix IV BID, Diprivan gtt, Fentanyl gtt, IV antibiotics and receiving Seroquel. DC planning deferred for today. DC PLAN: undetermined. Aisha MOLINA RN ACM
[2018-12-13] MEDS: QUEtiapine 100 MG Tablet PO ×2 (09:55→21:21)
[2018-12-13] MEDS: Chlorhexidine 15 ML PO ×2 (09:55→21:13)
[2018-12-13] MEDS: Metoprolol Tartrate 25 MG Tablet 12.5 MG GT (09:56)
[2018-12-13] MEDS: Senna/Docusate Sodium 1 Tablet 2 TABLET PO (09:56)
[2018-12-13] MEDS: TICAGRELOR 90 MG TABLET GT ×2 (09:57→21:21)
[2018-12-13] MEDS: Aspirin 81 MG TAB.CHEW GT (09:57)
[2018-12-13 11:03] LABS: BNP,B-Type NATRIURETIC PEPTIDE 477.6 pg/mL (0-100)
[2018-12-13 11:46] LABS: Bedside Glucose 93 mg/dL (70-110)
[2018-12-13] MEDS: Propofol 10MG/Ml 1,000 MG/100 ML Bottle 17.4 MG CONT INF ×2 (12:38→17:41)
[2018-12-13 17:30] LABS: Bedside Glucose 120 mg/dL (70-110)
[2018-12-13] MEDS: fentaNYL drip 100 ML 15 MCG IV (20:07)
[2018-12-13] MEDS: Atorvastatin Calcium 80 MG Tablet PO (21:21)
[2018-12-13 23:15] LABS: Bedside Glucose 118 mg/dL (70-110)
[2018-12-14] VITALS (39 sets, daily range): BP systolic 96–189; BP diastolic 44–88; PULSE 81–121; RESP 14–36; TEMP 37.7–38.6; O2SAT 93–100
[2018-12-14] MEDS: fentaNYL drip 100 ML 15 MCG IV (03:21)
[2018-12-14] MEDS: Propofol 10MG/Ml 1,000 MG/100 ML Bottle 14.9 MG CONT INF (03:58)
[2018-12-14 04:46] LABS: Absolute Lymphocyte Count 0.98 X10^3/uL (0.83-4.51); Absolute Neutrophil Count 7.2 X10^3/uL (2.0-7.7); Basophil# 0.04 X10^3/uL; Basophil% 0.4 % (0-1); Eosinophil# 0.33 X10^3/uL; Eosinophils% 3.5 % (0-5); Hemoglobin 10.4 g/dL (13.0-16.5); Lymphocyte # 0.98 X10^3/ul (4.0); Lymphocyte % 10.5 % (19-41); Mean Corp Hgb Conc 33.5 g/dL (32-36); Mean Corpuscular Hgb 31.4 pg (27.0-32.0); Mean Corpuscular Volume 93.7 fL (80-94); Mean Platelet Vol. 11.5 fl (6.2-12.0); Monocyte# 0.71 X10^3/uL; Monocyte% 7.6 % (0-10); NRBC Flagged by Analyzer 0 % (0-5); Neutrophil # 7.18 X10^3/uL (2.7-7.7); Platelet Count 159 K/mm3 (150-450); RBC Distribution Width CV 13.6 % (11.6-14.6); RBC Distribution Width SD 47.1 fl (35.1-43.9); Red Blood Count 3.31 M/mm3 (4.6-6.2); White Blood Count 9.3 K/mm3 (4.4-11.0)
[2018-12-14 04:56] LABS: Anion Gap 6 (5-15); BUN 18 mg/dL (7-18); BUN/Creat Ratio 13.6 RATIO (10-20); Calcium,Total 7.9 mg/dL (8.5-10.1); Chloride 110 mmol/L (98-107); Creatinine, Serum 1.32 mg/dL (0.70-1.30); EST Glomerular Filtration Rate 59 mL/min (>60); Est Glom Filt Rate - Afr Amer 72 mL/min (>60); Estimated Creatinine Clearance 65.76 ml/min; Glucose 118 mg/dL (74-106); Potassium 2.8 mmol/L (3.5-5.1); Sodium Level 145 mmol/L (136-145)
--- NOTE | 2018-12-14 06:38 | PCM.PN.INT ---
Subjective: The patient was seen and examined at the bedside this morning. Events from the last 24 hours have been reviewed. The patient remains febrile this morning. In light of increasing his Seroquel yesterday, the patient did relatively well on his spontaneous breathing trial this morning. However, upon my evaluation of the patient, he was tachypneic and tachycardic. The patient was also noted to have thick brown secretions, which required suctioning overnight. The patient is currently documented to be overall net +1.5 L for the admission. His potassium is low this morning at 2.8 and his creatinine is increased at 1.32. The patient's repeat CT head completed yesterday once again demonstrated stable findings when compared to prior CT head along with evidence of sinusitis. Following my initial patient evaluation, he was placed back on precedex. The patient then became much more calm and was able to follow commands. He was then placed back on a spontaneous breathing trial, which he completed without issue x 1 hour. Therefore, the patient was able to be extubated under my direct supervision to nasal cannula supplemental oxygen. Objective: The patient's most recent lab work, culture data and imaging studies have all been personally reviewed. Surface echocardiogram revealed an LVEF of approximately 35 to 40%. Right ventricular systolic pressure was estimated to be 22 mmHg. Urine culture was positive for presumptive E. coli (50-80K CFU). Sputum culture was positive for 3+ Klebsiella pneumoniae and 3+ Moraxella catarrhalis. Blood cultures have shown no growth to date. General: Alert, Confused - Remains intubated and mechanically ventilated. Currently on spontaneous breathing trial., - HEENT: Atraumatic, PERRLA, Normocephalic Oral: No Gingival or Mucosal Lesions/ Ulcerations, - - Endotracheal and OG tubes remain in place Neck: Supple, No Nodes, Trachea Midline Lungs: Diminished, Tachypneic, - - Coarse bilateral rhonchi noted Cardiovascular: Normal S1, Normal S2, No murmurs, Tachycardic Abdomen: Bowel Sounds Present, Soft, Non Tender Extremities: No clubbing, No cyanosis, Edema - Trace pedal Skin: No breakdown Musculoskeletal: No Tenderness to Palpation of Joints or Extremities Lymphatic: No Cervical, Supraclavicular, or Inguinal Adenopathy Neurological: - - The patient is alert but requires significant prompting to follow commands. He appears anxious and is intermittently restless. Vital Signs Temp Pulse Resp BP Pulse Ox 100.8 F H 120 H 30 H 160/60 H 93 12/14/18 06:00 12/14/18 06:00 12/14/18 06:00 12/14/18 06:00 12/14/18 06:00 Oxygen Flow Rate (L/min) 50 Oxygen Delivery Method Mechanical Ventilator Weight: 174 lb 9.698 oz Body Mass Index (BMI) 27.3 Finger Stick Blood Glucose 206 Intake and Output for Last 24 Hours 12/12/18 12/13/18 12/14/18 23:59 23:59 23:59 Intake Total 3503.64 / 3809.64 3035.81 / 3035.81 270.21 / 270.21 Output Total 2684 / 3334 3375 / 4850 1475 / 1475 Balance 819.64 / 475.64 -339.19 / -1814.19 -1204.79 / -1204.79 Labs (Last 48 Hours) 12/12/18 12/12/18 12/12/18 06:35 08:25 11:31 WBC RBC Hgb Hct MCV MCH MCHC RDW Std Deviation RDW Coeff of [place] Plt Count MPV Immature Gran % (Auto) Neut % (Auto) Lymph % (Auto) Maverick % (Auto) Eos % (Auto) Baso % (Auto) Absolute Neuts (auto) Absolute Lymphs (auto) Nucleated RBC % APTT 58.3 H Sodium Potassium Chloride Carbon Dioxide Anion Gap BUN Creatinine Estim Creat Clear Calc Est GFR (MDRD) Af Amer Est GFR (MDRD) Non-Af BUN/Creatinine Ratio Glucose Calcium B-Natriuretic Peptide MRSA (PCR) Negative POC Glucose 114 H 12/12/18 12/13/18 12/13/18 18:45 00:49 06:17 WBC RBC Hgb Hct MCV MCH MCHC RDW Std Deviation RDW Coeff of [place] Plt Count MPV Immature Gran % (Auto) Neut % (Auto) Lymph % (Auto) Maverick % (Auto) Eos % (Auto) Baso % (Auto) Absolute Neuts (auto) Absolute Lymphs (auto) Nucleated RBC % APTT Sodium Potassium Chloride Carbon Dioxide Anion Gap BUN Creatinine Estim Creat Clear Calc Est GFR (MDRD) Af Amer Est GFR (MDRD) Non-Af BUN/Creatinine Ratio Glucose Calcium B-Natriuretic Peptide MRSA (PCR) POC Glucose 107 106 90 12/13/18 12/13/18 12/13/18 06:25 06:25 08:40 WBC 10.8 RBC 3.29 L Hgb 10.5 L Hct 30.9 L MCV 93.9 MCH 31.9 MCHC 34.0 RDW Std Deviation 47.0 H RDW Coeff of [place] 13.7 Plt Count 130 L MPV 12.4 H Immature Gran % (Auto) 0.600 Neut % (Auto) 84.4 H Lymph % (Auto) 7.5 L Maverick % (Auto) 5.8 Eos % (Auto) 1.4 Baso % (Auto) 0.3 Absolute Neuts (auto) 9.1 H Absolute Lymphs (auto) 0.81 L Nucleated RBC % 0 APTT Sodium 143 Potassium 3.2 L Chloride 112 H Carbon Dioxide 25.0 Anion Gap 6 BUN 18 Creatinine 1.29 Estim Creat Clear Calc 67.29 Est GFR (MDRD) Af Amer 74 Est GFR (MDRD) Non-Af 61 BUN/Creatinine Ratio 14.0 Glucose 102 Calcium 7.6 L B-Natriuretic Peptide 477.6 H MRSA (PCR) POC Glucose 12/13/18 12/13/18 12/13/18 11:41 17:13 23:09 WBC RBC Hgb Hct MCV MCH MCHC RDW Std Deviation RDW Coeff of [place] Plt Count MPV Immature Gran % (Auto) Neut % (Auto) Lymph % (Auto) Maverick % (Auto) Eos % (Auto) Baso % (Auto) Absolute Neuts (auto) Absolute Lymphs (auto) Nucleated RBC % APTT Sodium Potassium Chloride Carbon Dioxide Anion Gap BUN Creatinine Estim Creat Clear Calc Est GFR (MDRD) Af Amer Est GFR (MDRD) Non-Af BUN/Creatinine Ratio Glucose Calcium B-Natriuretic Peptide MRSA (PCR) POC Glucose 93 120 H 118 H 12/14/18 12/14/18 04:30 04:30 WBC 9.3 RBC 3.31 L Hgb 10.4 L Hct 31.0 L MCV 93.7 MCH 31.4 MCHC 33.5 RDW Std Deviation 47.1 H RDW Coeff of [place] 13.6 Plt Count 159 MPV 11.5 Immature Gran % (Auto) 1.000 H Neut % (Auto) 77.0 H Lymph % (Auto) 10.5 L Maverick % (Auto) 7.6 Eos % (Auto) 3.5 Baso % (Auto) 0.4 Absolute Neuts (auto) 7.2 Absolute Lymphs (auto) 0.98 Nucleated RBC % 0 APTT Sodium 145 Potassium 2.8 L Chloride 110 H Carbon Dioxide 29.0 Anion Gap 6 BUN 18 Creatinine 1.32 H Estim Creat Clear Calc 65.76 Est GFR (MDRD) Af Amer 72 Est GFR (MDRD) Non-Af 59 L BUN/Creatinine Ratio 13.6 Glucose 118 H Calcium 7.9 L B-Natriuretic Peptide MRSA (PCR) POC Glucose Microbiology 12/11/18 02:00 Sputum, Induced/Lukens Gram Stain - Final 12/11/18 02:00 Sputum, Induced/Lukens Respiratory Culture - Preliminary Klebsiella pneumoniae sp pneum GNR lactose finish saw operator Moraxella(Yary.)Catarrhalis 12/11/18 13:05 Blood Culture (Wb) - Pic Blood Culture - Preliminary No growth in 48 hours. 12/11/18 13:00 Blood Culture (Wb) - Right Forearm Blood Culture - Preliminary No growth in 48 hours. 12/11/18 09:28 Sputum, Induced/Lukens Gram Stain - Final 12/11/18 09:28 Sputum, Induced/Lukens Respiratory Culture - Final GNR lactose finish saw operator GNR lactose finish saw operator#2 Gram negative diplococci 12/11/18 19:40 Urine Catheter - Angel Urine Culture - Final Presumptive E. coli Medical Necessity - Tobacco Use Smoking Status: Heavy Smoker (>10/day) Tobacco Use: Cigarettes Assessment/Plan All Active Problems (Last Updated 12/13/18 @ 15:47 by Zaina Hebert) STEMI (ST elevation myocardial infarction) (Acute) Ventricular fibrillation (Acute) Metabolic acidosis (Acute) Metabolic encephalopathy (Acute) Anoxic brain injury (Acute) RECOMMENDATIONS: 1. Proceed with a trial of extubation. 2. Once extubated, wean supplemental oxygen to maintain saturations at or above 90%. 3. Perform swallow evaluation, prior to advancing diet. 4. Seroquel will be discontinued. 5. Start DVT prophylaxis. Continue appropriate GI prophylaxis. 6. De-escalate antibiotics to ceftriaxone. 7. Would recommend holding EMMANUEL inhibitor and Lasix, given worsening renal insufficiency. 8. Continue nicotine replacement therapy. 9. Aggressive electrolyte repletion. IMPRESSIONS: 1. Ventricular fibrillation arrest secondary to ST elevation [place] The patient did require emergent angioplasty with drug-eluting stent placement to his mid LAD following arrival to the hospital. He has a severely depressed ejection fraction. However, in light of all of this, the patient has been able to be weaned from vasopressor support. He remains hemodynamically stable at this time. Continue medical management per cardiology recommendations. Lasix has been placed on hold due to climbing creatinine. 2. Acute hypoxemic respiratory failure The patient does have an extensive smoking history and likely has a component of underlying obstructive lung disease. In addition, the patient is currently growing gram negatives from his sputum raising the concern for potential aspiration. Based on cultures and sensitivities, the patient's antibiotics can be de-escalated to ceftriaxone. Following augmentation of the patient's sedation regimen, he was able to be extubated this morning. Recommend weaning supplemental oxygen to maintain saturations at or above 90%. Perform bedside swallow evaluation, prior to advancing diet. Start chest physiotherapy with IS and PEP. Scheduled bronchodilators while awake will be continued. Seroquel has been discontinued. 3. Acute upper GI bleed Clinical suspicion for stress gastritis given presentation. Continue with Protonix for now. Blood counts are stable. No current indication for transfusion of blood products. 4. Metabolic encephalopathy/possible anoxic encephalopathy CT scan in the ER did show some mild edema and patient was noted to have a decreased mental status on presentation. Repeat CT head revealed stability in these findings. The patient's sedation regimen was augmented. He was alert and able to follow commands appropriately this morning. Therefore, he was subsequently extubated. All sedating medications have been subsequently discontinued. 5. Hypokalemia Electrolyte repletion as ordered. Recheck levels in the morning. 6. Tobacco abuse/poor history/unclear primary care Complicates care, management, recovery and prognosis. Outpatient pulmonary function test for evaluation of COPD would be appropriate. The patient will be continued on nicotine replacement therapy. TIME: 45 minutes of critical care time, independent of procedures, was spent addressing the patient's ST segment elevation [place], out of hospital cardiac arrest, acute respiratory failure, anemia, metabolic encephalopathy, hypokalemia, review of all data and collaboration with the care team. ([id number], [id number]) Code Visit 9xxxx: [id number] Critical care first hour
[2018-12-14] MEDS: 0.9% NaCl Peripheral Flush Adult/Peds IV ×2 (06:53→18:48)
[2018-12-14] MEDS: Vital AF 1.2 Cal Liquid 1,000 ML 60 ML GT (06:54)
--- NOTE | 2018-12-14 07:12 | PN_ITS ---
Patient Problems: Active and Suspected Problems (Last Updated 12/13/18 @ 15:47 by Zaina Hebert) STEMI (ST elevation myocardial infarction) (Acute) Ventricular fibrillation (Acute) Metabolic acidosis (Acute) Metabolic encephalopathy (Acute) Anoxic brain injury (Acute) Upper GI hemorrhage (Suspected) Subjective: CC?follow-up for respiratory failure and acute stemi Patient seen really undergoing weaning trial in the ICU. Objective: GENERAL: Sedated on the vent HEENT: ET tube in place EYES; Anicteric, Normal Conjunctiva NECK; supple, normal thyroid, RESPIRATORY: Diminished to auscultation CARDIOVASCULAR: Regular S1 S2, GI: soft, non-tender, normoactive bowel sounds, : No Renal angle tenderness; EXTREMITIES: No edema, no clubbing, no cyanosis. MUSCULOSKELETAL: No no muscle waisting NEURO: Unable to assess patient is sedated on the vent SKIN: No Rash PSYCH; unable to assess Vitals/I&O's: Vital Signs Temp Pulse Resp BP Pulse Ox 100.8 F H 120 H 30 H 160/60 H 93 12/14/18 06:00 12/14/18 06:00 12/14/18 06:00 12/14/18 06:00 12/14/18 06:00 Oxygen Flow Rate (L/min) 50 Oxygen Delivery Method Mechanical Ventilator Weight: 79.2 kg Body Mass Index (BMI) 27.3 Finger Stick Blood Glucose 206 Intake and Output for Last 24 Hours 12/12/18 12/13/18 12/14/18 23:59 23:59 23:59 Intake Total 3503.64 / 3809.64 3035.81 / 3035.81 270.21 / 270.21 Output Total 2684 / 3334 3375 / 4850 1700 / 1700 Balance 819.64 / 475.64 -339.19 / -1814.19 -1429.79 / -1429.79 Microbiology Past 72 Hours 12/11/18 02:00 Sputum, Induced/Lukens Gram Stain - Final 12/11/18 02:00 Sputum, Induced/Lukens Respiratory Culture - Preliminary Klebsiella pneumoniae sp pneum GNR lactose telecommunication operator Moraxella(Yary.)Catarrhalis 12/11/18 13:05 Blood Culture (Wb) - Pic Blood Culture - Preliminary No growth in 48 hours. 12/11/18 13:00 Blood Culture (Wb) - Right Forearm Blood Culture - Preliminary No growth in 48 hours. 12/11/18 09:28 Sputum, Induced/Lukens Gram Stain - Final 12/11/18 09:28 Sputum, Induced/Lukens Respiratory Culture - Final GNR lactose telecommunication operator GNR lactose telecommunication operator#2 Gram negative diplococci 12/11/18 19:40 Urine Catheter - Angel Urine Culture - Final Presumptive E. coli Laboratory Results 12/13/18 06:25: B-Natriuretic Peptide 477.6 H 12/13/18 06:25: Sodium 143, Potassium 3.2 L, Chloride 112 H, Carbon Dioxide 25.0, Anion Gap 6, BUN 18, Creatinine 1.29, Estim Creat Clear Calc 67.29, Est GFR (MDRD) Af Amer 74, Est GFR (MDRD) Non-Af 61, BUN/Creatinine Ratio 14.0, Glucose 102, Calcium 7.6 L 12/13/18 08:40: WBC 10.8, RBC 3.29 L, Hgb 10.5 L, Hct 30.9 L, MCV 93.9, MCH 31.9, MCHC 34.0, RDW Std Deviation 47.0 H, RDW Coeff of [place] 13.7, Plt Count 130 L, MPV 12.4 H, Immature Gran % (Auto) 0.600, Neut % (Auto) 84.4 H, Lymph % (Auto) 7.5 L, Richardson % (Auto) 5.8, Eos % (Auto) 1.4, Baso % (Auto) 0.3, Absolute Neuts (auto) 9.1 H, Absolute Lymphs (auto) 0.81 L, Nucleated RBC % 0 12/13/18 11:41: POC Glucose 93 12/13/18 17:13: POC Glucose 120 H 12/13/18 23:09: POC Glucose 118 H 12/14/18 04:30: WBC 9.3, RBC 3.31 L, Hgb 10.4 L, Hct 31.0 L, MCV 93.7, MCH 31.4, MCHC 33.5, RDW Std Deviation 47.1 H, RDW Coeff of [place] 13.6, Plt Count 159, MPV 11.5, Immature Gran % (Auto) 1.000 H, Neut % (Auto) 77.0 H, Lymph % (Auto) 10.5 L, Richardson % (Auto) 7.6, Eos % (Auto) 3.5, Baso % (Auto) 0.4, Absolute Neuts (auto) 7.2, Absolute Lymphs (auto) 0.98, Nucleated RBC % 0 12/14/18 04:30: Sodium 145, Potassium 2.8 L, Chloride 110 H, Carbon Dioxide 29.0, Anion Gap 6, BUN 18, Creatinine 1.32 H, Estim Creat Clear Calc 65.76, Est GFR (MDRD) Af Amer 72, Est GFR (MDRD) Non-Af 59 L, BUN/Creatinine Ratio 13.6, Glucose 118 H, Calcium 7.9 L Current Medications Acetaminophen (Tylenol) 650 mg RECTAL Q4H PRN PRN PRN Reason: Mild Pain (1-3)/Temp > 100.7 F Last Admin: 12/11/18 14:07 Dose: 650 mg Documented by: Acetaminophen (Tylenol Liquid) 650 mg GT Q4H PRN PRN PRN Reason: Fever > 102 or Pain Albuterol/Ipratropium (Duoneb) 3 ml INHALATION Q4HWA.RT [facility] Aspirin (Aspirin, Baby) 81 mg GT DAILY@0800 [facility] Last Admin: 12/13/18 09:57 Dose: 81 mg Documented by: Atorvastatin Calcium (Lipitor) 80 mg PO QHS [facility] Last Admin: 12/13/18 21:21 Dose: 80 mg Documented by: Atropine Sulfate () 0.5 mg IV UD PRN PRN Reason: HR <50 bpm Chlorhexidine Gluconate () 15 ml PO BID [facility] Last Admin: 12/13/18 21:13 Dose: 15 ml Documented by: Chlorhexidine Gluconate () 1 each TOPICAL DAILY [facility] Last Admin: 12/13/18 08:30 Dose: 1 each Documented by: Dextrose (D50w Syringe) 0 gm IV X1 PRN; Protocol PRN Reason: Hypoglycemia Furosemide (Lasix) 40 mg IV BID@1000,1800 [facility] Last Admin: 12/13/18 17:16 Dose: 40 mg Documented by: Glucagon () 1 mg IM .X1 PRN PRN Reason: Hypoglycemia Heparin Sodium (Beef Lung) (Heparin 500 Unit/5 Ml (100/Ml)) 500 unit IV UD PRN PRN Reason: HEPARIN FLUSH Heparin Sodium (Beef Lung) () 50 units IV UD PRN PRN Reason: HEPARIN FLUSH Heparin Sodium (Porcine) (Heparin Na) 0 unit IV UD PRN; Protocol Last Admin: 12/10/18 23:08 Dose: 1,000 unit Documented by: Pantoprazole Sodium 40 mg/ (Sodium Chloride) 110 mls @ 330 mls/hr IV Q12 SCOTT Last Infusion: 12/13/18 21:45 Dose: Infused Documented by: Sodium Chloride () 250 mls @ 15 mls/hr IV .[id number] PRN PRN Reason: SALINE FLUSH Last Infusion: 12/11/18 17:56 Dose: Infused Documented by: Enteral Nutritional Formula (Vital Af 1.2 Brent Liquid) 1,000 mls @ 60 mls/hr GT .[id number] [facility] Last Admin: 12/14/18 06:54 Dose: 60 mls/hr Documented by: Piperacillin Sod/Tazobactam (Sod 3.375 gm/ Sodium Chloride) 50 mls @ 12.5 mls/hr IV Q8 [facility] Last Admin: 12/14/18 05:36 Dose: 12.5 mls/hr Documented by: Potassium Chloride 40 meq/ (Sodium Chloride) 120 mls @ 100 mls/hr IV BOLUS X1 ONE Stop: 12/14/18 07:16 Last Admin: 12/14/18 06:50 Dose: 100 mls/hr Documented by: Potassium Chloride 20 meq/ (Sodium Chloride) 60 mls @ 100 mls/hr IV BOLUS X1 ONE Stop: 12/14/18 07:50 Dexmedetomidine HCl 400 mcg/ (Sodium Chloride) 100 mls @ 9.9 mls/hr CONT INF .Q10H7M [facility]; Protocol Insulin Human Lispro (Humalog Kwikpen (Bkc)) 0 unit SC Q6 [facility]; Protocol Last Admin: 12/14/18 05:54 Dose: Not Given Documented by: Labetalol HCl (Trandate) 5 mg IV X1 PRN PRN Reason: SBP > 160 when pulling sheath Lisinopril (Zestril) 5 mg GT DAILY [facility] Last Admin: 12/13/18 11:10 Dose: Not Given Documented by: Metoclopramide HCl (Reglan) 5 mg IV Q6H PRN PRN PRN Reason: NAUSEA/VOMITING Metoprolol Tartrate (Lopressor (Beta Missy)) 12.5 mg GT BID [facility] Last Admin: 12/13/18 22:20 Dose: Not Given Documented by: Nicotine (Nicoderm Cq (Pbkc)) 21 mg TRANSDERM. DAILY [facility] Last Admin: 12/13/18 09:18 Dose: 21 mg Documented by: Nitroglycerin (Nitrostat) 0.4 mg SUBLINGUAL Q5M PRN PRN Reason: CARDIAC/CHEST PAIN Ondansetron HCl (Zofran) 4 mg IV Q8H PRN PRN PRN Reason: NAUSEA/VOMITING Polyethylene Glycol (Miralax) 17 gm PO DAILY PRN PRN Reason: Constipation Last Admin: 12/12/18 06:40 Dose: 17 gm Documented by: Quetiapine Fumarate (Seroquel) 100 mg PO BID [facility] Last Admin: 12/13/18 21:21 Dose: 100 mg Documented by: Senna/Docusate Sodium (Senokot-S, Jackelin-Colace) 2 tablet PO DAILY [facility] Last Admin: 12/13/18 09:56 Dose: 2 tablet Documented by: Sodium Chloride () 500 ml IV BOLUS PRN PRN Reason: VASO-VAGAL PROTOCOL Sodium Chloride () 10 - 40 ml IV UD PRN PRN Reason: SALINE FLUSH Last Admin: 12/14/18 06:53 Dose: 10 ml Documented by: Sodium Chloride () 10 - 40 ml IV UD PRN PRN Reason: PICC FLUSH Ticagrelor (Brilinta) 90 mg GT BID [facility] Last Admin: 12/13/18 21:21 Dose: 90 mg Documented by: Medical Necessity - Tobacco Use Smoking Status: Heavy Smoker (>10/day) Tobacco Use: Cigarettes Assessment/Plan All Active Problems (Last Updated 12/13/18 @ 15:47 by Zaina Hebert) STEMI (ST elevation myocardial infarction) (Acute) Ventricular fibrillation (Acute) Metabolic acidosis (Acute) Metabolic encephalopathy (Acute) Anoxic brain injury (Acute) Patient is a 58-year-old gentleman admitted after he was found unresponsive. An assessment of acute ST segment elevation [place] made. Patient underwent emergent left heart catheterization with stent placed to his LAD. Postprocedure patient became hypotensive stating the use of IABP. He was also found to be in acute respiratory failure and subsequently intubated and admitted to the intensive care unit. 1. Acute ST segment elevation [place] ~patient underwent emergency left heart catheterization with PCI/MARY ELLEN to an LAD lesion 2018 ?Currently on recommended medications 2. Cardiogenic shock ~ patient was managed on IABP which was removed on 12/12/2018 3. Acute hypoxic respiratory failure secondary to patient cardiogenic shock as well as acute ST elevation [place] with underlying COPD ~Patient admitted to the intensive care unit vent management deferred to pulmonary medicine. Attempted weaning on 12/13/2018 was unsuccessful ?12/14/2018: Patient currently undergoing weaning trial in ICU 4. Suspected anoxic brain injury ~CT obtained on 12/10/2018 reported possible edema with possible anoxic brain injury plan is to repeat CAT scan 12/13/2018. 5. Encephalopathy suspected to be secondary to anoxic brain injury 6. DVT prophylaxis patient is on heparin 7. Tobacco dependence ~ do plan to estate planning counselor once patient is off the vent 8. Hypokalemia ~ corrected per protocol Code Visit Inpatient E&M: 40204 Subs Hosp L2
[2018-12-14] MEDS: CHLORHEXIDINE GLUC 2% CLOTH 1 EACH TOWELETTE TOPICAL (07:55)
--- NOTE | 2018-12-14 09:38 | CASEMGMT ---
RIYA SCHMIDT Note: Call received from Tripp Zepeda CM. Updated and CM will notify on dc. Aisha BRADFORDN RIYA ACM
[2018-12-14] MEDS: Ceftriaxone 1 GM/50 ML BAG IV (10:09)
[2018-12-14] MEDS: Heparin Injection 5,000 UNITS/ML Syringe 5000 UNITS SC ×2 (10:40→21:26)
[2018-12-14] MEDS: Ipratropium/Albuterol Sulfate 3 ML AMPUL.NEB INHALATION ×3 (10:52→19:05)
[2018-12-14 11:41] LABS: Bedside Glucose 114 mg/dL (70-110)
[2018-12-14] MEDS: Lidocaine 4% 5 ML Ampul 2 ML INHALATION (14:44)
--- NOTE | 2018-12-14 15:12 | RAD_ITS ---
STUDY: X-RAY - ABDOMEN/PELVIS REASON FOR EXAM: Male, 58 years old. Nasogastric tube placement. TECHNIQUE: Single AP view of the abdomen / pelvis. COMPARISON: None. FINDINGS: Normal visualized lung bases. The intra-aortic balloon is not seen at this time. A left-sided central catheter seen with the tip at the junction of the superior vena cava and right atrium. There is an unremarkable bowel gas pattern. The tip of the nasogastric tube is in the body of the stomach. RAD/Abdomen Single View (Portable) IMPRESSION: The tip of the nasogastric tube is in the body of the stomach. Electronically Signed: Martín Escudero, at 15:49 EDT , Service support ,
[2018-12-14] MEDS: Oxymetazoline 0.05% 1 SPRAY SPRAY.BTL 2 SPRAY NASAL (15:17)
[2018-12-14] MEDS: Lisinopril 5 MG Tablet PO (16:08)
[2018-12-14] MEDS: Metoprolol Tartrate 25 MG Tablet 12.5 MG PO (16:08)
[2018-12-14] MEDS: Aspirin 81 MG TAB.CHEW PO (16:09)
[2018-12-14] MEDS: TICAGRELOR 90 MG TABLET PO (16:09)
--- NOTE | 2018-12-14 17:00 | CHAPLAIN ---
Type of Pastoral Visit ___ Initial Visit _x__ Follow-up Visit ___ On-call Visit ___ General Patient Visit ___ Spiritual Assessment ___ Family Conference ___ Bereavement ___ Rapid Response ___ Code Blue ___ Other (describe below) Pastoral Care Referral From _x__ Patient ___ Family ___ Nurse ___ Physician ___ Floor Coverings Installer ___ Drive Away Driver ___ Other (describe below) Sacrament/Intervention ___ Active listening ___ Anointing ___ Tenriism ___ Bereavement ___ Communion ___ Lisa exploration ___ ___ Life review _x__ Prayer ___ Reconciliation ___ Sacrament of Sick _x__ Supportive presence ___ Wedding ___ Other (describe below) Pastoral Comments
[2018-12-14 17:51] LABS: Bedside Glucose 100 mg/dL (70-110)
[2018-12-14] MEDS: Ondansetron 4 MG/2 ML Vial IV (18:48)
[2018-12-14] MEDS: TICAGRELOR 90 MG TABLET GT (21:26)
[2018-12-14] MEDS: Atorvastatin Calcium 80 MG Tablet GT (21:27)
[2018-12-14] MEDS: Metoprolol Tartrate 25 MG Tablet 12.5 MG GT (21:27)
[2018-12-14] MEDS: Acetaminophen 650 MG/20 ML UDC GT (21:31)
[2018-12-14 23:02] LABS: Hematocrit 33.8 % (40-54); Hemoglobin 11.3 g/dL (13.0-16.5)
[2018-12-15] VITALS (27 sets, daily range): BP systolic 139–169; BP diastolic 43–83; PULSE 65–90; RESP 20–33; TEMP 36.6–37.8; O2SAT 94–99; BMI 28.6
[2018-12-15 01:26] LABS: Bedside Glucose 108 mg/dL (70-110)
[2018-12-15 04:27] LABS: Absolute Neutrophil Count 9.6 X10^3/uL (2.0-7.7); Basophil# 0.05 X10^3/uL; Basophil% 0.4 % (0-1); Eosinophil# 0.13 X10^3/uL; Eosinophils% 1.1 % (0-5); Hematocrit 36.5 % (40-54); Lymphocyte % 6.9 % (19-41); Mean Corp Hgb Conc 32.9 g/dL (32-36); Mean Corpuscular Hgb 30.6 pg (27.0-32.0); Mean Corpuscular Volume 93.1 fL (80-94); Mean Platelet Vol. 11.4 fl (6.2-12.0); Monocyte# 0.91 X10^3/uL; Monocyte% 7.9 % (0-10); NRBC Flagged by Analyzer 0 % (0-5); Neutrophil % 82.9 % (47-70); Platelet Count 253 K/mm3 (150-450); RBC Distribution Width CV 13.5 % (11.6-14.6); RBC Distribution Width SD 46.3 fl (35.1-43.9); Red Blood Count 3.92 M/mm3 (4.6-6.2); White Blood Count 11.6 K/mm3 (4.4-11.0)
[2018-12-15 04:43] LABS: Anion Gap 10 (5-15); BUN 24 mg/dL (7-18); BUN/Creat Ratio 23.5 RATIO (10-20); Calcium,Total 8.7 mg/dL (8.5-10.1); Chloride 115 mmol/L (98-107); Creatinine, Serum 1.02 mg/dL (0.70-1.30); EST Glomerular Filtration Rate 80 mL/min (>60); Est Glom Filt Rate - Afr Amer 97 mL/min (>60); Glucose 118 mg/dL (74-106); Potassium 3.5 mmol/L (3.5-5.1); Sodium Level 149 mmol/L (136-145)
--- NOTE | 2018-12-15 06:46 | PCM.PN.INT ---
Subjective: The patient was seen and examined at the bedside this morning. Events from the last 24 hours have been reviewed. The patient continues to have a low-grade fever. He remains hemodynamically stable and has been weaned to room air as of this morning. Overnight, the patient had a significant amount of coughing and apparently developed a hematoma at the site of his catheterization. The patient had an NG tube placed yesterday to facilitate administration of his Brilinta. However, overnight, he pulled out said NG tube. Objective: The patient's most recent lab work, culture data and imaging studies have all been personally reviewed. Surface echocardiogram revealed an LVEF of approximately 35 to 40%. Right ventricular systolic pressure was estimated to be 22 mmHg. Urine culture was positive for presumptive E. coli (50-80K CFU). Sputum culture was positive for 3+ Klebsiella pneumoniae and 3+ Moraxella catarrhalis. Blood cultures have shown no growth to date. General: Alert, Cooperative, Confused HEENT: Atraumatic, PERRLA, Normocephalic Oral: No Gingival or Mucosal Lesions/ Ulcerations Neck: Supple, No Nodes, Trachea Midline Lungs: No rhonchi, No wheeze, No rales, Diminished Cardiovascular: Regular rate, Regular Rhythm, Normal S1, Normal S2 Abdomen: Bowel Sounds Present, Soft, Non Tender Extremities: No clubbing, No cyanosis, Edema Skin: No breakdown Musculoskeletal: No Muscle Wasting Lymphatic: No Cervical, Supraclavicular, or Inguinal Adenopathy Neurological: Neuro grossly intact Psych/Mental Status: Flat Affect Vital Signs Temp Pulse Resp BP Pulse Ox 100.0 F H 86 23 H 159/77 H 95 12/15/18 06:00 12/15/18 06:00 12/15/18 06:00 12/15/18 06:00 12/15/18 06:00 Oxygen Flow Rate (L/min) 2 Oxygen Delivery Method Room Air Weight: 166 lb 7.184 oz Body Mass Index (BMI) 27.3 Finger Stick Blood Glucose 206 Intake and Output for Last 24 Hours 12/13/18 12/14/18 12/15/18 23:59 23:59 23:59 Intake Total 3035.81 / 3035.81 672.02 / 672.02 Output Total 3375 / 4850 2350 / 2550 400 / 400 Balance -339.19 / -1814.19 -1677.98 / -1877.98 -400 / -400 Labs (Last 48 Hours) 12/13/18 12/13/18 12/13/18 06:17 06:25 06:25 WBC RBC Hgb Hct MCV MCH MCHC RDW Std Deviation RDW Coeff of [place] Plt Count MPV Immature Gran % (Auto) Neut % (Auto) Lymph % (Auto) [place] % (Auto) Eos % (Auto) Baso % (Auto) Absolute Neuts (auto) Absolute Lymphs (auto) Nucleated RBC % Sodium 143 Potassium 3.2 L Chloride 112 H Carbon Dioxide 25.0 Anion Gap 6 BUN 18 Creatinine 1.29 Estim Creat Clear Calc 67.29 Est GFR (MDRD) Af Amer 74 Est GFR (MDRD) Non-Af 61 BUN/Creatinine Ratio 14.0 Glucose 102 Calcium 7.6 L B-Natriuretic Peptide 477.6 H POC Glucose 90 Blood Type Antibody Screen 12/13/18 12/13/18 12/13/18 08:40 11:41 17:13 WBC 10.8 RBC 3.29 L Hgb 10.5 L Hct 30.9 L MCV 93.9 MCH 31.9 MCHC 34.0 RDW Std Deviation 47.0 H RDW Coeff of [place] 13.7 Plt Count 130 L MPV 12.4 H Immature Gran % (Auto) 0.600 Neut % (Auto) 84.4 H Lymph % (Auto) 7.5 L [place]er % (Auto) 5.8 Eos % (Auto) 1.4 Baso % (Auto) 0.3 Absolute Neuts (auto) 9.1 H Absolute Lymphs (auto) 0.81 L Nucleated RBC % 0 Sodium Potassium Chloride Carbon Dioxide Anion Gap BUN Creatinine Estim Creat Clear Calc Est GFR (MDRD) Af Amer Est GFR (MDRD) Non-Af BUN/Creatinine Ratio Glucose Calcium B-Natriuretic Peptide POC Glucose 93 120 H Blood Type Antibody Screen 12/13/18 12/14/18 12/14/18 23:09 04:30 04:30 WBC 9.3 RBC 3.31 L Hgb 10.4 L Hct 31.0 L MCV 93.7 MCH 31.4 MCHC 33.5 RDW Std Deviation 47.1 H RDW Coeff of [place] 13.6 Plt Count 159 MPV 11.5 Immature Gran % (Auto) 1.000 H Neut % (Auto) 77.0 H Lymph % (Auto) 10.5 L [place]er % (Auto) 7.6 Eos % (Auto) 3.5 Baso % (Auto) 0.4 Absolute Neuts (auto) 7.2 Absolute Lymphs (auto) 0.98 Nucleated RBC % 0 Sodium 145 Potassium 2.8 L Chloride 110 H Carbon Dioxide 29.0 Anion Gap 6 BUN 18 Creatinine 1.32 H Estim Creat Clear Calc 65.76 Est GFR (MDRD) Af Amer 72 Est GFR (MDRD) Non-Af 59 L BUN/Creatinine Ratio 13.6 Glucose 118 H Calcium 7.9 L B-Natriuretic Peptide POC Glucose 118 H Blood Type Antibody Screen 12/14/18 12/14/18 12/14/18 11:32 17:46 22:50 WBC RBC Hgb 11.3 L Hct 33.8 L MCV MCH MCHC RDW Std Deviation RDW Coeff of [place] Plt Count MPV Immature Gran % (Auto) Neut % (Auto) Lymph % (Auto) [place] % (Auto) Eos % (Auto) Baso % (Auto) Absolute Neuts (auto) Absolute Lymphs (auto) Nucleated RBC % Sodium Potassium Chloride Carbon Dioxide Anion Gap BUN Creatinine Estim Creat Clear Calc Est GFR (MDRD) Af Amer Est GFR (MDRD) Non-Af BUN/Creatinine Ratio Glucose Calcium B-Natriuretic Peptide POC Glucose 114 H 100 Blood Type Antibody Screen 12/14/18 12/15/18 12/15/18 22:50 01:19 04:15 WBC 11.6 H RBC 3.92 L Hgb 12.0 L Hct 36.5 L MCV 93.1 MCH 30.6 MCHC 32.9 RDW Std Deviation 46.3 H RDW Coeff of [place] 13.5 Plt Count 253 MPV 11.4 Immature Gran % (Auto) 0.800 Neut % (Auto) 82.9 H Lymph % (Auto) 6.9 L [place]er % (Auto) 7.9 Eos % (Auto) 1.1 Baso % (Auto) 0.4 Absolute Neuts (auto) 9.6 H Absolute Lymphs (auto) 0.80 L Nucleated RBC % 0 Sodium Potassium Chloride Carbon Dioxide Anion Gap BUN Creatinine Estim Creat Clear Calc Est GFR (MDRD) Af Amer Est GFR (MDRD) Non-Af BUN/Creatinine Ratio Glucose Calcium B-Natriuretic Peptide POC Glucose 108 Blood Type A POSITIVE Antibody Screen NEGATIVE 12/15/18 04:15 WBC RBC Hgb Hct MCV MCH MCHC RDW Std Deviation RDW Coeff of [place] Plt Count MPV Immature Gran % (Auto) Neut % (Auto) Lymph % (Auto) [place]agoner % (Auto) Eos % (Auto) Baso % (Auto) Absolute Neuts (auto) Absolute Lymphs (auto) Nucleated RBC % Sodium 149 H Potassium 3.5 Chloride 115 H Carbon Dioxide 24.0 Anion Gap 10 BUN 24 H Creatinine 1.02 Estim Creat Clear Calc 85.10 Est GFR (MDRD) Af Amer 97 Est GFR (MDRD) Non-Af 80 BUN/Creatinine Ratio 23.5 H Glucose 118 H Calcium 8.7 B-Natriuretic Peptide POC Glucose Blood Type Antibody Screen Microbiology 12/11/18 02:00 Sputum, Induced/Lukens Gram Stain - Final 12/11/18 02:00 Sputum, Induced/Lukens Respiratory Culture - Preliminary Klebsiella pneumoniae sp pneum GNR lactose lead technician Moraxella(Yary.)Catarrhalis 12/11/18 13:05 Blood Culture (Wb) - Pic Blood Culture - Preliminary No growth in 48 hours. 12/11/18 13:00 Blood Culture (Wb) - Right Forearm Blood Culture - Preliminary No growth in 48 hours. 12/11/18 09:28 Sputum, Induced/Lukens Gram Stain - Final 12/11/18 09:28 Sputum, Induced/Lukens Respiratory Culture - Final GNR lactose lead technician GNR lactose lead technician#2 Gram negative diplococci 12/11/18 19:40 Urine Catheter - Angel Urine Culture - Final Presumptive E. coli Clinical Impression(s) from Imaging Studies Brain CT 12/10/18 05:39 IMPRESSION: Possible mild edema. Possible anoxic brain injury. No acute hemorrhage or overt ischemic changes on submitted images. These findings were discussed on the telephone with Dr. Guthrie at 608 hrs. EST on 12/10/2018. Electronically Signed: Urvashi Arnold MD at 6:12 EDT , Service support , ADDENDUM: 12/10/18 0620 IMPRESSION: Possible mild edema. Possible anoxic brain injury. No acute hemorrhage or overt ischemic changes on submitted images. These findings were discussed on the telephone with Dr. Guthrie at 608 hrs. EST on 12/10/2018. N.B. : The above information has been verbally conveyed by Urvashi Arnold MD to Shantelle Guthrie MD, MD, on 12/10/2018 06:13:33 (ET). Electronically Signed: Urvashi Arnold MD at 6:12 EDT , Service support , Chest X-Ray 12/10/18 05:40 IMPRESSION: Probable vascular congestion. Possible underlying component of COPD. Lines appear in good position. Electronically Signed: Urvashi Arnold MD at 6:01 EDT , Service support , Chest X-Ray 12/10/18 08:40 IMPRESSION: Stable examination demonstrating mild degree of vascular congestion. The support tubes are unchanged. Electronically Signed: Martín Escudero, at 14:08 EDT , Service support , Chest X-Ray 12/10/18 12:02 IMPRESSION: No interval change, stable appearance of the previously noted support lines and tubes. Left-sided PICC line tip in the distal SVC Electronically Signed: Chris Harrell MD at 13:01 EDT , Service support , Chest X-Ray 12/11/18 05:55 IMPRESSION: Lines as above. Improved aeration, decrease of interstitial opacification particularly in the right upper lung. Electronically Signed: Urvashi Arnold MD at 6:13 EDT , Service support , Chest X-Ray 12/11/18 12:30 IMPRESSION: No change. at 2322 Reported and signed by: Rico Bauman MD Electronically Signed: Rico Bauman MD at 23:21 EDT Tel , Service support , Chest X-Ray 12/12/18 02:10 IMPRESSION: No change. at 0245 Reported and signed by: Rico Bauman MD Electronically Signed: Rico Bauman MD at 2:44 EDT Tel , Service support , Brain CT 12/13/18 08:01 IMPRESSION: Stable examination. Sinusitis. Electronically Signed: Martín Escudero, at 13:50 EDT , Service support , KUB X-Ray 12/14/18 15:12 IMPRESSION: The tip of the nasogastric tube is in the body of the stomach. Electronically Signed: Martín Escudero, at 15:49 EDT , Service support , Medical Necessity - Tobacco Use Smoking Status: Heavy Smoker (>10/day) Tobacco Use: Cigarettes Assessment/Plan All Active Problems (Last Updated 12/13/18 @ 15:47 by Zaina Hebert) STEMI (ST elevation myocardial infarction) (Acute) Ventricular fibrillation (Acute) Metabolic acidosis (Acute) Metabolic encephalopathy (Acute) Anoxic brain injury (Acute) RECOMMENDATIONS: 1. Await speech therapy evaluation prior to advancing diet. 2. Continue antibiotics with plans to complete a 7-day treatment course. 3. Encourage incentive spirometer use while in bed. Mobilize patient as tolerated. 4. Continue appropriate GI and DVT prophylaxis 5. Continue nicotine replacement therapy. 6. Perform walking oximetry study prior to consideration for discharge from the hospital. 7. Ideally, the patient should follow-up in the pulmonary medicine clinic within 2 weeks of discharge. 8. The patient is medically stable for transfer out of the intensive care unit. IMPRESSIONS: 1. Ventricular fibrillation arrest secondary to ST elevation ND The patient did require emergent angioplasty with drug-eluting stent placement to his mid LAD following arrival to the hospital. He has a severely depressed ejection fraction. However, in light of all of this, the patient has been able to be weaned from vasopressor support. He remains hemodynamically stable at this time. Continue medical management per cardiology recommendations. 2. Acute hypoxemic respiratory failure Resolved. The patient does have an extensive smoking history and likely has a component of underlying obstructive lung disease. In addition, the patient is currently growing gram negatives from his sputum raising the concern for potential aspiration. Based on cultures and sensitivities, the patient's antibiotics can be de-escalated to ceftriaxone, with plans to complete a 7-day treatment course. Await speech therapy evaluation prior to advancing diet. Encourage incentive spirometer use while in bed. Continue bronchodilators. 3. Acute upper GI bleed Clinical suspicion for stress gastritis given presentation. Continue with Protonix for now. Blood counts are stable. No current indication for transfusion of blood products. 4. Metabolic encephalopathy/possible anoxic encephalopathy Resolved. CT scan in the ER did show some mild edema and patient was noted to have a decreased mental status on presentation. Repeat CT head revealed stability in these findings. All sedating medications were discontinued following extubation. 5. Tobacco abuse/poor history/unclear primary care Complicates care, management, recovery and prognosis. Outpatient pulmonary function test for evaluation of COPD would be appropriate. The patient will be continued on nicotine replacement therapy. This note was generated with [employer] dictation software. It may contain incorrect words, spelling, and punctuation that were not noted in checking the note before signing. Code Visit Inpatient E&M: 88222 [facility]
[2018-12-15] MEDS: Ipratropium/Albuterol Sulfate 3 ML AMPUL.NEB INHALATION ×3 (06:49→18:46)
--- NOTE | 2018-12-15 07:07 | PN_ITS ---
Patient Problems: Active and Suspected Problems (Last Updated 12/13/18 @ 15:47 by Zaina Hebert) STEMI (ST elevation myocardial infarction) (Acute) Ventricular fibrillation (Acute) Metabolic acidosis (Acute) Metabolic encephalopathy (Acute) Anoxic brain injury (Acute) Upper GI hemorrhage (Suspected) Subjective: CC: Respiratory failure, ST segment elevation CT and congestive heart failure 12/15/2018: Patient was successfully weaned off the vent the day prior. He apparently became delirious pulling out his NG tube. He also did develop hematoma at the site of his left heart catheterization. Plan is for patient undergo speech and swallow eval this a.m. for patient to be started on oral diet. Microbiology 12/11/18 02:00 Sputum, Induced/Lukens Gram Stain - Final 12/11/18 02:00 Sputum, Induced/Lukens Respiratory Culture - Final Klebsiella pneumoniae sp pneum Citrobacter freundii Moraxella(Yary.)Catarrhalis 12/11/18 13:05 Blood Culture (Wb) - Pic Blood Culture - Preliminary No growth in 48 hours. 12/11/18 13:00 Blood Culture (Wb) - Right Forearm Blood Culture - Preliminary No growth in 48 hours. 12/11/18 09:28 Sputum, Induced/Lukens Gram Stain - Final 12/11/18 09:28 Sputum, Induced/Lukens Respiratory Culture - Final GNR lactose dynamite packing machine feeder GNR lactose dynamite packing machine feeder#2 Gram negative diplococci 12/11/18 19:40 Urine Catheter - Angel Urine Culture - Final Presumptive E. coli Objective: GENERAL: Patient somewhat lethargic HEENT: Dry oral mucosa EYES; Anicteric, Normal Conjunctiva NECK; supple, normal thyroid, RESPIRATORY: Diminished to auscultation CARDIOVASCULAR: Regular S1 S2, GI: soft, non-tender, normoactive bowel sounds, : No Renal angle tenderness; EXTREMITIES: No edema, no clubbing, no cyanosis. MUSCULOSKELETAL: No no muscle waisting NEURO: Awake no focal deficit SKIN: No Rash PSYCH; flat affect Vitals/I&O's: Vital Signs Temp Pulse Resp BP Pulse Ox 100.0 F H 86 23 H 159/77 H 95 12/15/18 06:00 12/15/18 06:00 12/15/18 06:00 12/15/18 06:00 12/15/18 06:00 Oxygen Flow Rate (L/min) 2 Oxygen Delivery Method Room Air Weight: 75.5 kg Body Mass Index (BMI) 27.3 Finger Stick Blood Glucose 206 Intake and Output for Last 24 Hours 12/13/18 12/14/18 12/15/18 23:59 23:59 23:59 Intake Total 3035.81 / 3035.81 782.02 / 782.02 Output Total 3375 / 4850 2350 / 2550 400 / 400 Balance -339.19 / -1814.19 -1567.98 / -1767.98 -400 / -400 Microbiology Past 72 Hours 12/11/18 02:00 Sputum, Induced/Lukens Gram Stain - Final 12/11/18 02:00 Sputum, Induced/Lukens Respiratory Culture - Preliminary Klebsiella pneumoniae sp pneum GNR lactose dynamite packing machine feeder Moraxella(Yary.)Catarrhalis 12/11/18 13:05 Blood Culture (Wb) - Pic Blood Culture - Preliminary No growth in 48 hours. 12/11/18 13:00 Blood Culture (Wb) - Right Forearm Blood Culture - Preliminary No growth in 48 hours. 12/11/18 09:28 Sputum, Induced/Lukens Gram Stain - Final 12/11/18 09:28 Sputum, Induced/Lukens Respiratory Culture - Final GNR lactose dynamite packing machine feeder GNR lactose dynamite packing machine feeder#2 Gram negative diplococci 12/11/18 19:40 Urine Catheter - Angel Urine Culture - Final Presumptive E. coli Laboratory Results 12/14/18 11:32: POC Glucose 114 H 12/14/18 17:46: POC Glucose 100 12/14/18 22:50: Hgb 11.3 L, Hct 33.8 L 12/14/18 22:50: Blood Type A POSITIVE, Antibody Screen NEGATIVE 12/15/18 01:19: POC Glucose 108 12/15/18 04:15: WBC 11.6 H, RBC 3.92 L, Hgb 12.0 L, Hct 36.5 L, MCV 93.1, MCH 30.6, MCHC 32.9, RDW Std Deviation 46.3 H, RDW Coeff of [place] 13.5, Plt Count 253, MPV 11.4, Immature Gran % (Auto) 0.800, Neut % (Auto) 82.9 H, Lymph % (Auto) 6.9 L, [place] % (Auto) 7.9, Eos % (Auto) 1.1, Baso % (Auto) 0.4, Absolute Neuts (auto) 9.6 H, Absolute Lymphs (auto) 0.80 L, Nucleated RBC % 0 12/15/18 04:15: Sodium 149 H, Potassium 3.5, Chloride 115 H, Carbon Dioxide 24.0, Anion Gap 10, BUN 24 H, Creatinine 1.02, Estim Creat Clear Calc 85.10, Est GFR (MDRD) Af Amer 97, Est GFR (MDRD) Non-Af 80, BUN/Creatinine Ratio 23.5 H, Glucose 118 H, Calcium 8.7 Current Medications Acetaminophen (Tylenol) 650 mg RECTAL Q4H PRN PRN PRN Reason: Mild Pain (1-3)/Temp > 100.7 F Last Admin: 12/11/18 14:07 Dose: 650 mg Documented by: Acetaminophen (Tylenol Liquid) 650 mg GT Q4H PRN PRN PRN Reason: Fever > 102 or Pain Last Admin: 12/14/18 21:31 Dose: 650 mg Documented by: Albuterol/Ipratropium (Duoneb) 3 ml INHALATION Q4HWA.RT SCOTT Last Admin: 12/15/18 06:49 Dose: 3 ml Documented by: Aspirin (Aspirin, Baby) 81 mg GT DAILY@0800 [facility]OTT Atorvastatin Calcium (Lipitor) 80 mg GT QHS [facility] Last Admin: 12/14/18 21:27 Dose: 80 mg Documented by: Atropine Sulfate () 0.5 mg IV UD PRN PRN Reason: HR <50 bpm Chlorhexidine Gluconate () 1 each TOPICAL DAILY [facility] Last Admin: 12/14/18 07:55 Dose: 1 each Documented by: Dextrose (D50w Syringe) 0 gm IV X1 PRN; Protocol PRN Reason: Hypoglycemia Glucagon () 1 mg IM .X1 PRN PRN Reason: Hypoglycemia Heparin Sodium (Beef Lung) (Heparin 500 Unit/5 Ml (100/Ml)) 500 unit IV UD PRN PRN Reason: HEPARIN FLUSH Heparin Sodium (Beef Lung) () 50 units IV UD PRN PRN Reason: HEPARIN FLUSH Heparin Sodium (Porcine) () 5,000 units SC Q12H [facility] Last Admin: 12/14/18 21:26 Dose: 5,000 units Documented by: Pantoprazole Sodium 40 mg/ (Sodium Chloride) 110 mls @ 330 mls/hr IV Q12 [facility] Last Infusion: 12/14/18 22:00 Dose: Infused Documented by: Sodium Chloride () 250 mls @ 15 mls/hr IV .[id number] PRN PRN Reason: SALINE FLUSH Last Infusion: 12/11/18 17:56 Dose: Infused Documented by: Ceftriaxone Sodium (Rocephin) 1 gm in 50 mls @ 100 mls/hr IV Q24 [facility] Last Infusion: 12/14/18 10:39 Dose: Infused Documented by: Labetalol HCl (Trandate) 5 mg IV X1 PRN PRN Reason: SBP > 160 when pulling sheath Lisinopril (Zestril) 5 mg GT DAILY [facility] Metoclopramide HCl (Reglan) 5 mg IV Q6H PRN PRN PRN Reason: NAUSEA/VOMITING Metoprolol Tartrate (Lopressor (Beta Missy)) 12.5 mg GT BID [facility] Last Admin: 12/14/18 21:27 Dose: 12.5 mg Documented by: Nicotine (Nicoderm Cq (Pbkc)) 21 mg TRANSDERM. DAILY [facility] Last Admin: 12/14/18 10:09 Dose: 21 mg Documented by: Nitroglycerin (Nitrostat) 0.4 mg SUBLINGUAL Q5M PRN PRN Reason: CARDIAC/CHEST PAIN Ondansetron HCl (Zofran) 4 mg IV Q8H PRN PRN PRN Reason: NAUSEA/VOMITING Last Admin: 12/14/18 18:48 Dose: 4 mg Documented by: Polyethylene Glycol (Miralax) 17 gm GT DAILY PRN PRN Reason: Constipation Senna/Docusate Sodium (Senokot-S, Jackelin-Colace) 2 tablet PO DAILY [facility] Last Admin: 12/14/18 13:43 Dose: Not Given Documented by: Sodium Chloride () 500 ml IV BOLUS PRN PRN Reason: VASO-VAGAL PROTOCOL Sodium Chloride () 10 - 40 ml IV UD PRN PRN Reason: SALINE FLUSH Last Admin: 12/14/18 18:48 Dose: 10 ml Documented by: Sodium Chloride () 10 - 40 ml IV UD PRN PRN Reason: PICC FLUSH Ticagrelor (Brilinta) 90 mg GT BID [facility] Last Admin: 12/14/18 21:26 Dose: 90 mg Documented by: Medical Necessity - Tobacco Use Smoking Status: Heavy Smoker (>10/day) Tobacco Use: Cigarettes Assessment/Plan All Active Problems (Last Updated 12/13/18 @ 15:47 by Zaina Hebert) STEMI (ST elevation myocardial infarction) (Acute) Ventricular fibrillation (Acute) Metabolic acidosis (Acute) Metabolic encephalopathy (Acute) Anoxic brain injury (Acute) Patient is a 58-year-old gentleman admitted after he was found unresponsive. An assessment of acute ST segment elevation CT made. Patient underwent emergent left heart catheterization with stent placed to his LAD. Postprocedure patient became hypotensive stating the use of IABP. He was also found to be in acute respiratory failure and subsequently intubated and admitted to the intensive care unit. 1. Acute ST segment elevation CT ~patient underwent emergency left heart catheterization with PCI/MARY ELLEN to an LAD lesion 2018 ?Currently on recommended medications occluding statin therapy, beta-blockers, ARB and dual antiplatelet therapy with aspirin and Plavix ?12/15/2018 patient did develop a hematoma at the site of his cardiac catheterization as a result of excessive coughing. Pressure currently being applied 2. Cardiogenic shock ~ patient was managed on IABP which was removed on 12/12/2018 ?12/15/2018 cardiogenic shock resolved currently on Lasix 3. Acute hypoxic respiratory failure secondary to patient cardiogenic shock as well as acute ST elevation CT with underlying COPD ~Patient admitted to the intensive care unit vent management deferred to pulmonary medicine. Attempted weaning on 12/13/2018 was unsuccessful ?12/14/2018: Patient currently undergoing weaning trial in ICU ?12/15/2018 patient was successfully weaned off the vent to the day prior. Plan is for patient undergo patient swallow eval prior to initiation of oral feeding. Sputum cultures grew Klebsiella pneumoniae sp ; Citrobacter freundii Moraxella(Yary.)Catarrhalis. Currently on Rocephin 4. Suspected anoxic brain injury ~CT obtained on 12/10/2018 reported possible edema with possible anoxic brain injury plan is to repeat CAT scan 12/13/2018. 5. Encephalopathy suspected to be secondary to anoxic brain injury 6. DVT prophylaxis patient is on heparin 7. Tobacco dependence ~ do plan to director of counseling once patient is off the vent 8. Hypokalemia ~ corrected per protocol 9. Asymptomatic bacteriuria patient grew E. coli from his urine Active Medications Acetaminophen (Tylenol) 650 mg RECTAL Q4H PRN PRN PRN Reason: Mild Pain (1-3)/Temp > 100.7 F Last Admin: 12/11/18 14:07 Dose: 650 mg Documented by: Acetaminophen (Tylenol) 650 mg PO Q4H PRN PRN PRN Reason: Fever > 102 or Pain Albuterol/Ipratropium (Duoneb) 3 ml INHALATION Q4HWA.RT [facility] Last Admin: 12/15/18 06:49 Dose: 3 ml Documented by: Aspirin (Aspirin, Baby) 81 mg PO DAILY@0800 [facility] Atorvastatin Calcium (Lipitor) 80 mg PO QHS [facility] Atropine Sulfate () 0.5 mg IV UD PRN PRN Reason: HR <50 bpm Carvedilol (Coreg) 3.125 mg PO BID [facility] Last Admin: 12/15/18 09:34 Dose: Not Given Documented by: Chlorhexidine Gluconate () 1 each TOPICAL DAILY [facility] Last Admin: 12/15/18 09:49 Dose: 1 each Documented by: Dextrose (D50w Syringe) 0 gm IV X1 PRN; Protocol PRN Reason: Hypoglycemia Glucagon () 1 mg IM .X1 PRN PRN Reason: Hypoglycemia Heparin Sodium (Beef Lung) (Heparin 500 Unit/5 Ml (100/Ml)) 500 unit IV UD PRN PRN Reason: HEPARIN FLUSH Heparin Sodium (Beef Lung) () 50 units IV UD PRN PRN Reason: HEPARIN FLUSH Heparin Sodium (Porcine) () 5,000 units SC Q12H [facility] Last Admin: 12/15/18 09:51 Dose: 5,000 units Documented by: Pantoprazole Sodium 40 mg/ (Sodium Chloride) 110 mls @ 330 mls/hr IV Q12 [facility] Last Infusion: 12/15/18 10:10 Dose: Infused Documented by: Sodium Chloride () 250 mls @ 15 mls/hr IV .[id number] PRN PRN Reason: SALINE FLUSH Last Infusion: 12/11/18 17:56 Dose: Infused Documented by: Ceftriaxone Sodium (Rocephin) 1 gm in 50 mls @ 100 mls/hr IV Q24 [facility] Stop: 12/17/18 10:01 Last Admin: 12/15/18 10:17 Dose: 100 mls/hr Documented by: Labetalol HCl (Trandate) 5 mg IV X1 PRN PRN Reason: SBP > 160 when pulling sheath Lisinopril (Zestril) 5 mg PO DAILY [facility] Last Admin: 12/15/18 09:50 Dose: 5 mg Documented by: Metoclopramide HCl (Reglan) 5 mg IV Q6H PRN PRN PRN Reason: NAUSEA/VOMITING Nicotine (Nicoderm Cq (Pbkc)) 21 mg TRANSDERM. DAILY [facility] Last Admin: 12/15/18 09:49 Dose: Not Given Documented by: Nitroglycerin (Nitrostat) 0.4 mg SUBLINGUAL Q5M PRN PRN Reason: CARDIAC/CHEST PAIN Ondansetron HCl (Zofran) 4 mg IV Q8H PRN PRN PRN Reason: NAUSEA/VOMITING Last Admin: 12/14/18 18:48 Dose: 4 mg Documented by: Polyethylene Glycol (Miralax) 17 gm PO DAILY PRN PRN Reason: Constipation Senna/Docusate Sodium (Senokot-S, Jackelin-Colace) 2 tablet PO DAILY [facility] Last Admin: 12/15/18 09:50 Dose: Not Given Documented by: Sodium Chloride () 500 ml IV BOLUS PRN PRN Reason: VASO-VAGAL PROTOCOL Sodium Chloride () 10 - 40 ml IV UD PRN PRN Reason: SALINE FLUSH Last Admin: 12/15/18 09:48 Dose: 10 ml Documented by: Sodium Chloride () 10 - 40 ml IV UD PRN PRN Reason: PICC FLUSH Ticagrelor (Brilinta) 90 mg PO BID [facility] Code Visit Inpatient E&M: [id number] [facility] Hosp L2
--- NOTE | 2018-12-15 08:42 | PCM.PN.CARD ---
Subjectve: Patient awake, alert, answers questions appropriately, extubated yesterday morning. Patient did develop a small hematoma last evening due to excessive coughing in his right femoral artery area. This morning it is soft, clean, dry, no evidence of hematoma, no evidence of bruit and nontender. Telemetry negative. Objective: Vital Signs Temp Pulse Resp BP Pulse Ox 100.0 F H 88 24 H 159/77 H 95 12/15/18 06:00 12/15/18 08:00 12/15/18 06:49 12/15/18 06:00 12/15/18 06:49 Oxygen Flow Rate (L/min) 2 Oxygen Delivery Method Room Air Weight: 166 lb 7.184 oz Body Mass Index (BMI) 27.3 Finger Stick Blood Glucose 206 Intake and Output for Last 24 Hours 12/13/18 12/14/18 12/15/18 23:59 23:59 23:59 Intake Total 3035.81 / 3035.81 782.02 / 782.02 0 / 0 Output Total 3375 / 4850 2350 / 2550 400 / 400 Balance -339.19 / -1814.19 -1567.98 / -1767.98 -400 / -400 General: Awake, Alert, Oriented x 3 HEENT: PERRL, EOMI, Sclera Non Icteric Neck: Supple, Good ROM, No Lymph Node Enlargement Lungs: Clear to auscultation Cardiovascular: Regular Rhythm, Normal S1, Normal S2, No Murmurs, No Rubs, No Gallops Vascular: No Carotid Bruits, Normal Femoral Pulses, Normal Radial Pulses, Normal Dorsalis Pedal Pulse, Normal Posterior Tibial Pulses Abdomen: Bowel Sounds Present, Soft, Non Tender, No HSM, No Organomegaly Extremities: No Cyanosis, No Clubbing, No edema Neurological: No Focal Motor or Sensory Deficit 12/14/18 22:50: Hgb 11.3 L, Hct 33.8 L 12/15/18 04:15: WBC 11.6 H, RBC 3.92 L, Hgb 12.0 L, Hct 36.5 L, MCV 93.1, MCH 30.6, MCHC 32.9, Plt Count 253, MPV 11.4, Immature Gran % (Auto) 0.800, Neut % (Auto) 82.9 H, Lymph % (Auto) 6.9 L, [place] % (Auto) 7.9, Eos % (Auto) 1.1, Baso % (Auto) 0.4, Absolute Neuts (auto) 9.6 H, Nucleated RBC % 0 12/15/18 04:15: Sodium 149 H, Potassium 3.5, Chloride 115 H, Carbon Dioxide 24.0, Anion Gap 10, BUN 24 H, Creatinine 1.02, Est GFR (MDRD) Af Amer 97, Est GFR (MDRD) Non-Af 80, BUN/Creatinine Ratio 23.5 H, Glucose 118 H, Calcium 8.7 Rhythm: EKG: ECHO: Stress Test: Cardiac Cath: PCI: CT Surgery: Holter monitor: EPS: PPM: CXR: Chest CT Scan: Medical Necessity - Tobacco Use Smoking Status: Heavy Smoker (>10/day) Tobacco Use: Cigarettes Assessment/Plan 1. Coronary artery disease: The patient is status post emergent angioplasty and drug-eluting stenting to his mid LAD with balloon only angioplasty to the ostium of the diagonal branch. Left circumflex and RCA showed minimal nonobstructive coronary disease. LVEF was 35%. This was superimposed on V. fib arrest at home, requiring 1 defibrillation. The patient is status post intra-aortic balloon pump, which was removed on 12/12/2018. His right groin is clean/dry/intact without evidence of thrills, bruits or hematoma. He has 2+ DP and PT pulses bilaterally. Patient did have a small hematoma last evening due to excessive coughing in his right groin, sandbag was placed for about 8 hours, and this morning it is clean/dry/intact without evidence of hematoma, thrills or bruit. Recommend discontinuation of sandbag, and ambulating to chair this afternoon assuming the patient passes his swallow study. Now the patient is extubated, we are awaiting a swallow study. Assuming he passes it, he will resume his baby aspirin, Brilinta. We will start him on Coreg 3.125 mg p.o. twice daily in addition to his lisinopril and titrate each of these up as appropriate. 2. LV dysfunction: The patient's ejection fraction was approximately 35 to 40% post procedure, confirmed by echocardiogram, recommend continuing EMMANUEL inhibitor therapy. Recommend repeating his echocardiogram at the conclusion of cardiac rehab to determine if his LV function has normalized. If it has not normalized, the patient may require an AICD placement. 3. Hyperlipidemia: Continue statin based medications. 4. Pulmonary status: Patient status post extubation yesterday morning for what appears to be a combination of congestive heart failure and possible aspiration. He continues on antibiotics. He is slightly tachypneic with some mild conversational dyspnea, but does not appear in any overt distress. Continue pulmonary toilet and antibiotic therapy. Many thanks to the doctor of osteopathy team with getting the patient off of ventilator. 5. Thank you very much for the opportunity to participate in the cardiac care of your patient. Code Visit Inpatient E&M: [id number] [facility] Hosp L2
[2018-12-15] MEDS: Metoprolol Tartrate 25 MG Tablet 12.5 MG GT (09:02)
[2018-12-15] MEDS: TICAGRELOR 90 MG TABLET GT (09:02)
[2018-12-15] MEDS: Aspirin 81 MG TAB.CHEW GT (09:02)
--- NOTE | 2018-12-15 09:34 | CASEMGMT ---
RN ROXANA NOTE: Participated in ICU interdisciplinary rounds. Pt having Cookie Swallow completed at this time. Pt is on bedrest at this time. PT/OT to see pt this afternoon after bedrest completed. Awaiting PT/OT evals. Discharge plan remains undetermined at this time. CM/CLAUDIA will follow and develop safe discharge plan for pt. Olayinka MOLINA RN, CM
[2018-12-15] MEDS: 0.9% NaCl Peripheral Flush Adult/Peds IV (09:48)
[2018-12-15] MEDS: CHLORHEXIDINE GLUC 2% CLOTH 1 EACH TOWELETTE TOPICAL (09:49)
[2018-12-15] MEDS: Lisinopril 5 MG Tablet PO (09:50)
[2018-12-15] MEDS: Heparin Injection 5,000 UNITS/ML Syringe 5000 UNITS SC ×2 (09:51→21:26)
--- NOTE | 2018-12-15 09:57 | CASEMGMT ---
SW participated in ICU rounds this morning. Pt may benefit from going to somewhere for rehab as per therapy. SW spoke w/ and son in the ICU waiting room in regard to discharge plan. SW introduced the idea of pt going somewhere for rehab prior to returning home, spoke w/them about pt going to a assisted facility. Pt's and son are not in agreement with this plan. states that she will be able to help, as will pt's brother in law who lives with them. Son states he took off work for a while to be available to help as well, and pt's other son they explain is also available. Family feels they can manage to care for pt at home, and if he needs the assist of two people they will be able to do it. SW spoke w/them about home health care for PT/OT and nursing, and son are in agreement with referral to home health. They do not feel that an aide would be necessary as they can help pt. SW gave and son list of home health agencies, asked their preferences and explained will call to see if they can take pt's insurance(SW did attempt to pull a list off of the insurance website and the list included closed agencies, nursing homes, doctors and substance abuse counseling agencies, so did not give this inaccurate list to family). states would prefer [facility] if possible. CLAUDIA explained will call and check to see if they can take pt's insurance, and will let them know. CLAUDIA called Sydnee at [facility], message left. CLAUDIA will follow up once hears back from Sydnee, and will let CM know the plan. MEENA Charles
[2018-12-15] MEDS: Ceftriaxone 1 GM/50 ML BAG IV (10:17)
--- NOTE | 2018-12-15 10:32 | CASEMGMT ---
SW spoke w/Sydnee in [facility], they can take pt for PT/OT and nursing. SW spoke w/pt and in room, let them know that [facility] can take pt for home health. Both in agreement. SW did also explain to pt that SW had spoken w/ about pt going somewhere for rehab if an in between step were to be needed, SW also mentioned TCU here in the hospital as a possible option since had said family did not like the idea of fdc. Pt and still state they want pt go to home. SW/CM will continue to follow, plan as of now is home w/[facility]. MEENA Charles
[2018-12-15] MEDS: Acetaminophen 325 MG Tablet 650 MG PO (11:40)
--- NOTE | 2018-12-15 13:38 | CRPHASE1 ---
Patient Communication PHII Cardiac Rehab Discussed with Patient:: Yes Guide to Cardiac Rehab Given to Patient:: Yes Cardiac Rehab Facility Choice List Given to Patient:: Yes - [facility] Choice Program [facility] CR PHII:: Communication Given to CR [employer] Operator:: Peter Vazquez Sessions:: 36 sessions - 3 days/wk, 12 weeks Risk Factors/Lifestyle Smoking Status: Current every day smoker Second-Hand Smoke:: Yes Packs Smoked per Day: 3 Hx Diabetes Mellitus Type 2: No Hx Dyslipidemia: No Height: 1.8 m Weight:: 92.8 kg BMI: 28.6 Stress: Long-standing ETOH: No Caffeine: Yes Substance Abuse: No Phase I Education Given On:: Bard, Smoking cessation Issues Affecting Care:: None Knowledge of Condition:: Yes Learning Preferences: Verbal Hospital Course Pain Description: Sharp, Tightness Hospital Course/Complications:: hW WAS ON A VENTILATOR FOR 3 DAYS HAD TO BE DEFIB AT HOME X1 CPR GIVEN BY FAMILY AT HOME. Cardiac Cath Date:: 12/10/18 LAD:: YES Medical/Surgical History [place]:: Yes Angina:: Yes Pulmonary:: Yes Diabetes:: No Hypertension:: Yes Discharge/Home/Social Eval Discharge Disposition: Home Marital Status: - Cardiac Rehabilitation Info Cardiac Rehabilitation Program Information: Cardiac Rehabilitation is important for patients like you who are recovering from a heart problem. Cardiac rehabilitation programs are recognized as integral to the continued care of the patient with coronary heart disease. The cardiac rehabilitation program is designed to optimize a patient's physical, psychological, and social functioning. Health healthcare economics consultant work in cardiac rehabilitation programs and assist you with getting the treatments you need to get stronger and healthier - like exercise, healthy eating habits, and medications. Cardiac rehabilitation has been show to help people with heart problems live longer and have better life enjoyment than people who do not go to cardiac rehabilitation. Please contact the Cardiac Rehabilitation Program at [facility] at in two weeks if you have not heard from them.
--- NOTE | 2018-12-15 13:43 | CRPH1.INST_ITS ---
General Education CAD and cardiac anatomy and function:: Patient communicates acknowledgment Explanation of diagnoses and procedures:: Patient communicates acknowledgment Sign/Symptoms of VT:: Patient communicates acknowledgment Antiplatelet therapy: Not instructed Proper use of NTG-SL: Not instructed Emergency procedures and activation of EMS: Patient communicates acknowledgment Compliance of all prescribed medications: Not instructed Smoking Patient Nicotine/Smoking Risk Factors Are:: Cigarettes Recommendations Include:: Smoking cessation strategies/Smoking packet, Second- hand smoke recommendation Nicotine/Smoking Response Code:: Patient communicates acknowledgment - on nicderm patch at his time Dyslipidemia Recommendations Include:: Lipid profile not available Overweight/Obesity Patient Overweight/Obesity Risk Factors Are:: Overweight = 26-29 Overweight/Obesity:: Patient communicates acknowledgment Hypertension Patient Hypertension Risk Factors Are:: No documented hx of HTN Heart Disease Patient Heart Disease Risk Factors Are:: Family history of heart disease < 65 years old Heart Disease Response Code:: Patient communicates acknowledgment Diabetes Patient Diabetes Risk Factors Are:: No documented hx of diabetes Metabolic Syndrome Recommendations Include:: Does not meet criteria Sedentary Patient Sedentary Risk Factors Are:: Lack of regular exercise Sedentary Response Code:: Patient communicates acknowledgment Stress Stress Response Code:: Patient communicates acknowledgment - he is trying to quit smoking
[2018-12-15] MEDS: Lisinopril 20 MG Tablet PO (13:54)
--- NOTE | 2018-12-15 14:44 | CHAPLAIN ---
Type of Pastoral Visit ___ Initial Visit _x__ Follow-up Visit ___ On-call Visit ___ General Patient Visit ___ Spiritual Assessment ___ Family Conference ___ Bereavement ___ Rapid Response ___ Code Blue ___ Other (describe below) Pastoral Care Referral From _x__ Patient ___ Family _x__ Nurse ___ Physician ___ Small Lot Operator ___ Automation And Controls Supervisor ___ Other (describe below) Sacrament/Intervention _x__ Active listening ___ Anointing ___ Zoroastrianism ___ Bereavement ___ Communion ___ Lisa exploration ___ ___ Life review _x__ Prayer ___ Reconciliation ___ Sacrament of Sick _x__ Supportive presence ___ Wedding ___ Other (describe below) Pastoral Comments patient is now talkative; pt expresses 'glad to be alive' and 'no more smoking...things are going to change'; pt speaks of being thankful to God and how it will be different for him spiritually in the future; pt welcomes prayer
[2018-12-15] MEDS: TICAGRELOR 90 MG TABLET PO (21:26)
[2018-12-15] MEDS: Carvedilol 3.125 MG TABLET PO (21:26)
[2018-12-15] MEDS: Atorvastatin Calcium 80 MG Tablet PO (21:27)
[2018-12-16] VITALS (23 sets, daily range): BP systolic 126–170; BP diastolic 58–84; PULSE 59–73; RESP 12–26; TEMP 36.6–37.2; O2SAT 95–100
--- NOTE | 2018-12-16 06:34 | PN_ITS ---
Subjective: The patient was seen and examined at the bedside this morning. Events from the last 24 hours have been reviewed. The patient is currently afebrile, hemodynamically stable and maintaining appropriate oxygen saturations on room air. The patient successfully passed his swallow evaluation yesterday and his diet was advanced accordingly. No overnight issues were noted by the nursing staff. Objective: The patient's most recent lab work, culture data and imaging studies have all been personally reviewed. Surface echocardiogram revealed an LVEF of approximately 35 to 40%. Right ventricular systolic pressure was estimated to be 22 mmHg. Urine culture was positive for presumptive E. coli (50-80K CFU). Sputum culture was positive for 3+ Klebsiella pneumoniae and 3+ Moraxella catarrhalis. Blood cultures have shown no growth to date. General: Alert, Cooperative, No apparent distress HEENT: Atraumatic, PERRLA, Normocephalic Oral: No Gingival or Mucosal Lesions/ Ulcerations Neck: Supple, No Nodes, Trachea Midline Lungs: No wheeze, No rales, Diminished, Rhonchi Cardiovascular: Regular rate, Regular Rhythm, Normal S1, Normal S2, No murmurs Abdomen: Bowel Sounds Present, Soft, Non Tender Extremities: No clubbing, No cyanosis Skin: - - No significant change from previous Musculoskeletal: No Tenderness to Palpation of Joints or Extremities Lymphatic: No Cervical, Supraclavicular, or Inguinal Adenopathy Neurological: Cranial nerves II-XII grossly intact, Neuro grossly intact Psych/Mental Status: Normal Affect, Appropriate Vital Signs Temp Pulse Resp BP Pulse Ox 98.1 F 61 21 H 153/78 H 100 12/16/18 04:00 12/16/18 05:00 12/16/18 05:00 12/16/18 05:00 12/16/18 05:00 Oxygen Flow Rate (L/min) 2 Oxygen Delivery Method Room Air Weight: 204 lb 9.423 oz Body Mass Index (BMI) 27.3 Finger Stick Blood Glucose 206 Intake and Output for Last 24 Hours 12/14/18 12/15/18 12/16/18 23:59 23:59 23:59 Intake Total 782.02 / 782.02 750 / 990 240 / 240 Output Total 2350 / 2550 925 / 955 30 / 30 Balance -1567.98 / -1767.98 -175 / 35 210 / 210 Labs (Last 48 Hours) 12/14/18 12/14/18 12/14/18 11:32 17:46 22:50 WBC RBC Hgb 11.3 L Hct 33.8 L MCV MCH MCHC RDW Std Deviation RDW Coeff of [place] Plt Count MPV Immature Gran % (Auto) Neut % (Auto) Lymph % (Auto) Sheridan % (Auto) Eos % (Auto) Baso % (Auto) Absolute Neuts (auto) Absolute Lymphs (auto) Nucleated RBC % Sodium Potassium Chloride Carbon Dioxide Anion Gap BUN Creatinine Estim Creat Clear Calc Est GFR (MDRD) Af Amer Est GFR (MDRD) Non-Af BUN/Creatinine Ratio Glucose Calcium POC Glucose 114 H 100 Blood Type Antibody Screen 12/14/18 12/15/18 12/15/18 22:50 01:19 04:15 WBC 11.6 H RBC 3.92 L Hgb 12.0 L Hct 36.5 L MCV 93.1 MCH 30.6 MCHC 32.9 RDW Std Deviation 46.3 H RDW Coeff of [place] 13.5 Plt Count 253 MPV 11.4 Immature Gran % (Auto) 0.800 Neut % (Auto) 82.9 H Lymph % (Auto) 6.9 L Sheridan % (Auto) 7.9 Eos % (Auto) 1.1 Baso % (Auto) 0.4 Absolute Neuts (auto) 9.6 H Absolute Lymphs (auto) 0.80 L Nucleated RBC % 0 Sodium Potassium Chloride Carbon Dioxide Anion Gap BUN Creatinine Estim Creat Clear Calc Est GFR (MDRD) Af Amer Est GFR (MDRD) Non-Af BUN/Creatinine Ratio Glucose Calcium POC Glucose 108 Blood Type A POSITIVE Antibody Screen NEGATIVE 12/15/18 04:15 WBC RBC Hgb Hct MCV MCH MCHC RDW Std Deviation RDW Coeff of [place] Plt Count MPV Immature Gran % (Auto) Neut % (Auto) Lymph % (Auto) Sheridan % (Auto) Eos % (Auto) Baso % (Auto) Absolute Neuts (auto) Absolute Lymphs (auto) Nucleated RBC % Sodium 149 H Potassium 3.5 Chloride 115 H Carbon Dioxide 24.0 Anion Gap 10 BUN 24 H Creatinine 1.02 Estim Creat Clear Calc 85.10 Est GFR (MDRD) Af Amer 97 Est GFR (MDRD) Non-Af 80 BUN/Creatinine Ratio 23.5 H Glucose 118 H Calcium 8.7 POC Glucose Blood Type Antibody Screen Microbiology 12/11/18 02:00 Sputum, Induced/Lukens Gram Stain - Final 12/11/18 02:00 Sputum, Induced/Lukens Respiratory Culture - Final Klebsiella pneumoniae sp pneum Citrobacter freundii Moraxella(Yary.) Clinical Impression(s) from Imaging Studies Brain CT 12/10/18 05:39 IMPRESSION: Possible mild edema. Possible anoxic brain injury. No acute hemorrhage or overt ischemic changes on submitted images. These findings were discussed on the telephone with Dr. Guthrie at 608 hrs. EST on 12/10/2018. Electronically Signed: Urvashi Arnold MD at 6:12 EDT , Service support , ADDENDUM: 12/10/18 0620 IMPRESSION: Possible mild edema. Possible anoxic brain injury. No acute hemorrhage or overt ischemic changes on submitted images. These findings were discussed on the telephone with Dr. Guthrie at 608 hrs. EST on 12/10/2018. N.B. : The above information has been verbally conveyed by Urvashi Arnold MD to Shantelle Guthrie MD, MD, on 12/10/2018 06:13:33 (ET). Electronically Signed: Urvashi Arnold MD at 6:12 EDT , Service support , Chest X-Ray 12/10/18 05:40 IMPRESSION: Probable vascular congestion. Possible underlying component of COPD. Lines appear in good position. Electronically Signed: Urvashi Aronld MD at 6:01 EDT , Service support , Chest X-Ray 12/10/18 08:40 IMPRESSION: Stable examination demonstrating mild degree of vascular congestion. The support tubes are unchanged. Electronically Signed: Martín Escudero, at 14:08 EDT , Service support , Chest X-Ray 12/10/18 12:02 IMPRESSION: No interval change, stable appearance of the previously noted support lines and tubes. Left-sided PICC line tip in the distal SVC Electronically Signed: Chris Harrell MD at 13:01 EDT , Service support , Chest X-Ray 12/11/18 05:55 IMPRESSION: Lines as above. Improved aeration, decrease of interstitial opacification particularly in the right upper lung. Electronically Signed: Urvashi Arnold MD at 6:13 EDT , Service support , Chest X-Ray 12/11/18 12:30 IMPRESSION: No change. at 2322 Reported and signed by: Rico Bauman MD Electronically Signed: Rico Bauman MD at 23:21 EDT Tel , Service support , Chest X-Ray 12/12/18 02:10 IMPRESSION: No change. at 0245 Reported and signed by: Rico Bauman MD Electronically Signed: Rico Bauman MD at 2:44 EDT Tel , Service support , Brain CT 12/13/18 08:01 IMPRESSION: Stable examination. Sinusitis. Electronically Signed: Martín Escudero, at 13:50 EDT , Service support , KUB X-Ray 12/14/18 15:12 IMPRESSION: The tip of the nasogastric tube is in the body of the stomach. Electronically Signed: Martín Escudero, at 15:49 EDT , Service support , Catarrhalis Medical Necessity - Tobacco Use Smoking Status: Current every day smoker Tobacco Use: Cigarettes Assessment/Plan All Active Problems (Last Updated 12/13/18 @ 15:47 by Zaina Hebert) STEMI (ST elevation myocardial infarction) (Acute) Ventricular fibrillation (Acute) Metabolic acidosis (Acute) Metabolic encephalopathy (Acute) Anoxic brain injury (Acute) RECOMMENDATIONS: 1. Await speech therapy evaluation prior to advancing diet. 2. Continue antibiotics with plans to complete a 7-day treatment course. 3. Encourage incentive spirometer use while in bed. Mobilize patient as tolerated. 4. Continue appropriate GI and DVT prophylaxis 5. Continue nicotine replacement therapy. 6. Perform walking oximetry study prior to consideration for discharge from the hospital. 7. Ideally, the patient should follow-up in the pulmonary medicine clinic within 2 weeks of discharge. IMPRESSIONS: 1. Ventricular fibrillation arrest secondary to ST elevation DE The patient did require emergent angioplasty with drug-eluting stent placement to his mid LAD following arrival to the hospital. He has a severely depressed ejection fraction. However, in light of all of this, the patient has been able to be weaned from vasopressor support. He remains hemodynamically stable at this time. Continue medical management per cardiology recommendations. 2. Acute hypoxemic respiratory failure Resolved. The patient does have an extensive smoking history and likely has a component of underlying obstructive lung disease. In addition, the patient is currently growing gram negatives from his sputum raising the concern for potential aspiration. Based on cultures and sensitivities, the patient's antibiotics can be de-escalated to ceftriaxone, with plans to complete a 7-day treatment course. Await speech therapy evaluation prior to advancing diet. Encourage incentive spirometer use while in bed. Continue bronchodilators. 3. Acute upper GI bleed Clinical suspicion for stress gastritis given presentation. Continue with Protonix for now. Blood counts are stable. No current indication for transfusion of blood products. 4. Metabolic encephalopathy/possible anoxic encephalopathy Resolved. CT scan in the ER did show some mild edema and patient was noted to have a decreased mental status on presentation. Repeat CT head revealed stability in these findings. All sedating medications were discontinued following extubation. 5. Tobacco abuse/poor history/unclear primary care Complicates care, management, recovery and prognosis. Outpatient pulmonary function test for evaluation of COPD would be appropriate. The patient will be continued on nicotine replacement therapy. This note was generated with [employer] dictation software. It may contain incorrect words, spelling, and punctuation that were not noted in checking the note before signing. DISPOSITION: The patient is medically stable for transfer out of the intensive care unit. Code Visit Inpatient E&M: 86472 Subs Hosp L2
[2018-12-16] MEDS: Ipratropium/Albuterol Sulfate 3 ML AMPUL.NEB INHALATION ×2 (06:52→13:40)
--- NOTE | 2018-12-16 07:12 | PCM.PN.HOSP ---
Patient Problems: Active and Suspected Problems (Last Updated 12/13/18 @ 15:47 by Zaina Hebert) STEMI (ST elevation myocardial infarction) (Acute) Ventricular fibrillation (Acute) Metabolic acidosis (Acute) Metabolic encephalopathy (Acute) Anoxic brain injury (Acute) Upper GI hemorrhage (Suspected) Subjective: CC: Follow-up acute MO Patient did pass this speech and swallow eval the day prior. He has remained relatively stable. Patient blood pressure creeping up. His antihypertensive regimen adjusted. Plan is to discontinue bed rest and encourage ambulation. Patient to be transferred to the progressive care unit. Objective: GENERAL: Patient is cooperative HEENT: Dry oral mucosa EYES; Anicteric, Normal Conjunctiva NECK; supple, normal thyroid, RESPIRATORY: Diminished to auscultation CARDIOVASCULAR: Regular S1 S2, GI: soft, non-tender, normoactive bowel sounds, : No Renal angle tenderness; EXTREMITIES: No edema, no clubbing, no cyanosis. MUSCULOSKELETAL: No no muscle waisting NEURO: Awake no focal deficit SKIN: No Rash PSYCH; flat affect Vitals/I&O's: Vital Signs Temp Pulse Resp BP Pulse Ox 98.1 F 60 24 H 141/74 H 98 12/16/18 04:00 12/16/18 06:00 12/16/18 06:00 12/16/18 06:00 12/16/18 06:00 Oxygen Flow Rate (L/min) 2 Oxygen Delivery Method Room Air Weight: 75.2 kg Body Mass Index (BMI) 27.3 Finger Stick Blood Glucose 206 Intake and Output for Last 24 Hours 12/14/18 12/15/18 12/16/18 23:59 23:59 23:59 Intake Total 782.02 / 782.02 750 / 990 240 / 240 Output Total 2350 / 2550 925 / 955 130 / 130 Balance -1567.98 / -1767.98 -175 / 35 110 / 110 Microbiology Past 72 Hours 12/11/18 02:00 Sputum, Induced/Lukens Gram Stain - Final 12/11/18 02:00 Sputum, Induced/Lukens Respiratory Culture - Final Klebsiella pneumoniae sp pneum Citrobacter freundii Moraxella(Yary.)Catarrhalis 12/11/18 13:05 Blood Culture (Wb) - Pic Blood Culture - Preliminary No growth in 48 hours. 12/11/18 13:00 Blood Culture (Wb) - Right Forearm Blood Culture - Preliminary No growth in 48 hours. 12/11/18 09:28 Sputum, Induced/Lukens Gram Stain - Final 12/11/18 09:28 Sputum, Induced/Lukens Respiratory Culture - Final GNR lactose efficiency analyst GNR lactose efficiency analyst#2 Gram negative diplococci 12/11/18 19:40 Urine Catheter - Angel Urine Culture - Final Presumptive E. coli Current Medications Acetaminophen (Tylenol) 650 mg RECTAL Q4H PRN PRN PRN Reason: Mild Pain (1-3)/Temp > 100.7 F Last Admin: 12/11/18 14:07 Dose: 650 mg Documented by: Acetaminophen (Tylenol) 650 mg PO Q4H PRN PRN PRN Reason: Fever > 102 or Pain Last Admin: 12/15/18 11:40 Dose: 650 mg Documented by: Albuterol/Ipratropium (Duoneb) 3 ml INHALATION Q6HWA.RT [facility] Last Admin: 12/16/18 06:52 Dose: 3 ml Documented by: Aspirin (Aspirin, Baby) 81 mg PO DAILY@0800 [facility] Atorvastatin Calcium (Lipitor) 80 mg PO QHS [facility] Last Admin: 12/15/18 21:27 Dose: 80 mg Documented by: Atropine Sulfate () 0.5 mg IV UD PRN PRN Reason: HR <50 bpm Carvedilol (Coreg) 3.125 mg PO BID [facility] Last Admin: 12/15/18 21:26 Dose: 3.125 mg Documented by: Chlorhexidine Gluconate () 1 each TOPICAL DAILY [facility] Last Admin: 12/15/18 09:49 Dose: 1 each Documented by: Dextrose (D50w Syringe) 0 gm IV X1 PRN; Protocol PRN Reason: Hypoglycemia Glucagon () 1 mg IM .X1 PRN PRN Reason: Hypoglycemia Heparin Sodium (Beef Lung) (Heparin 500 Unit/5 Ml (100/Ml)) 500 unit IV UD PRN PRN Reason: HEPARIN FLUSH Heparin Sodium (Beef Lung) () 50 units IV UD PRN PRN Reason: HEPARIN FLUSH Heparin Sodium (Porcine) () 5,000 units SC Q12H [facility] Last Admin: 12/15/18 21:26 Dose: 5,000 units Documented by: Pantoprazole Sodium 40 mg/ (Sodium Chloride) 110 mls @ 330 mls/hr IV Q12 [facility] Last Infusion: 12/15/18 21:49 Dose: Infused Documented by: Sodium Chloride () 250 mls @ 15 mls/hr IV .[id number] PRN PRN Reason: SALINE FLUSH Last Infusion: 12/11/18 17:56 Dose: Infused Documented by: Ceftriaxone Sodium (Rocephin) 1 gm in 50 mls @ 100 mls/hr IV Q24 [facility] Stop: 12/17/18 10:01 Last Infusion: 12/15/18 10:54 Dose: Infused Documented by: Labetalol HCl (Trandate) 5 mg IV X1 PRN PRN Reason: SBP > 160 when pulling sheath Lisinopril (Zestril) 5 mg PO DAILY [facility] Last Admin: 12/15/18 09:50 Dose: 5 mg Documented by: Metoclopramide HCl (Reglan) 5 mg IV Q6H PRN PRN PRN Reason: NAUSEA/VOMITING Nicotine (Nicoderm Cq (Pbkc)) 21 mg TRANSDERM. DAILY [facility] Last Admin: 12/15/18 09:49 Dose: Not Given Documented by: Nitroglycerin (Nitrostat) 0.4 mg SUBLINGUAL Q5M PRN PRN Reason: CARDIAC/CHEST PAIN Ondansetron HCl (Zofran) 4 mg IV Q8H PRN PRN PRN Reason: NAUSEA/VOMITING Last Admin: 12/14/18 18:48 Dose: 4 mg Documented by: Polyethylene Glycol (Miralax) 17 gm PO DAILY PRN PRN Reason: Constipation Senna/Docusate Sodium (Senokot-S, Jackelin-Colace) 2 tablet PO DAILY [facility] Last Admin: 12/15/18 09:50 Dose: Not Given Documented by: Sodium Chloride () 500 ml IV BOLUS PRN PRN Reason: VASO-VAGAL PROTOCOL Sodium Chloride () 10 - 40 ml IV UD PRN PRN Reason: SALINE FLUSH Last Admin: 12/15/18 09:48 Dose: 10 ml Documented by: Sodium Chloride () 10 - 40 ml IV UD PRN PRN Reason: PICC FLUSH Ticagrelor (Brilinta) 90 mg PO BID [facility] Last Admin: 12/15/18 21:26 Dose: 90 mg Documented by: Medical Necessity - Tobacco Use Smoking Status: Current every day smoker Tobacco Use: Cigarettes Assessment/Plan All Active Problems (Last Updated 12/13/18 @ 15:47 by Zaina Hebert) STEMI (ST elevation myocardial infarction) (Acute) Ventricular fibrillation (Acute) Metabolic acidosis (Acute) Metabolic encephalopathy (Acute) Anoxic brain injury (Acute) Patient is a 58-year-old gentleman admitted after he was found unresponsive. An assessment of acute ST segment elevation MO made. Patient underwent emergent left heart catheterization with stent placed to his LAD. Postprocedure patient became hypotensive stating the use of IABP. He was also found to be in acute respiratory failure and subsequently intubated and admitted to the intensive care unit. 1. Acute ST segment elevation MO ~patient underwent emergency left heart catheterization with PCI/MARY ELLEN to an LAD lesion 2019 ?Currently on recommended medications occluding statin therapy, beta-blockers, ARB and dual antiplatelet therapy with aspirin and Plavix ?12/15/2018 patient did develop a hematoma at the site of his cardiac catheterization as a result of excessive coughing. Pressure currently being applied ?12/16/2018; Patient did pass this speech and swallow eval the day prior. He has remained relatively stable. Patient blood pressure creeping up. His antihypertensive regimen adjusted. Plan is to discontinue bed rest and encourage ambulation. Patient to be transferred to the progressive care unit. 2. Cardiogenic shock ~ patient was managed on IABP which was removed on 12/12/2018 ?12/15/2018 cardiogenic shock resolved currently on Lasix 3. Acute hypoxic respiratory failure secondary to patient cardiogenic shock as well as acute ST elevation MO with underlying COPD ~Patient admitted to the intensive care unit vent management deferred to pulmonary medicine. Attempted weaning on 12/13/2018 was unsuccessful ?12/14/2018: Patient currently undergoing weaning trial in ICU ?12/15/2018 patient was successfully weaned off the vent to the day prior. Plan is for patient undergo patient swallow eval prior to initiation of oral feeding. Sputum cultures grew Klebsiella pneumoniae sp ; Citrobacter freundii Moraxella(Yary.)Catarrhalis. Currently on Rocephin 4. Suspected anoxic brain injury ~CT obtained on 12/10/2018 reported possible edema with possible anoxic brain injury plan is to repeat CAT scan 12/13/2018. 5. Encephalopathy suspected to be secondary to anoxic brain injury 6. DVT prophylaxis patient is on heparin 7. Tobacco dependence ~ do plan to academic counselor once patient is off the vent 8. Hypokalemia ~ corrected per protocol 9. Asymptomatic bacteriuria patient grew E. coli from his urine Code Visit Inpatient E&M: 56208 Subs Hosp L2
[2018-12-16] MEDS: CHLORHEXIDINE GLUC 2% CLOTH 1 EACH TOWELETTE TOPICAL (08:22)
[2018-12-16] MEDS: TICAGRELOR 90 MG TABLET PO ×2 (08:23→21:47)
[2018-12-16] MEDS: Carvedilol 3.125 MG TABLET PO ×2 (08:24→21:47)
[2018-12-16] MEDS: Aspirin 81 MG TAB.CHEW PO (08:24)
--- NOTE | 2018-12-16 08:33 | PN.CARD_ITS ---
Subjectve: Patient continues to improve. Telemetry negative. Right groin is clean/dry/intact. Blood pressure improving requiring escalating doses of lisinopril. Objective: Vital Signs Temp Pulse Resp BP Pulse Ox 97.8 F 66 19 H 170/73 H 98 12/16/18 08:00 12/16/18 08:00 12/16/18 08:00 12/16/18 08:00 12/16/18 08:00 Oxygen Flow Rate (L/min) 2 Oxygen Delivery Method Room Air Weight: 165 lb 12.602 oz Body Mass Index (BMI) 27.3 Finger Stick Blood Glucose 206 Intake and Output for Last 24 Hours 12/14/18 12/15/18 12/16/18 23:59 23:59 23:59 Intake Total 782.02 / 782.02 750 / 990 240 / 240 Output Total 2350 / 2550 925 / 955 130 / 130 Balance -1567.98 / -1767.98 -175 / 35 110 / 110 General: Awake, Alert, Oriented x 3 HEENT: PERRL, EOMI, Sclera Non Icteric Neck: Supple, Good ROM, No Lymph Node Enlargement Lungs: Clear to auscultation Cardiovascular: Regular Rhythm, Normal S1, Normal S2, No Murmurs, No Rubs, No G allops Vascular: No Carotid Bruits, Normal Femoral Pulses, Normal Radial Pulses, Normal Dorsalis Pedal Pulse, Normal Posterior Tibial Pulses Abdomen: Bowel Sounds Present, Soft, Non Tender, No HSM, No Organomegaly Extremities: No Cyanosis, No Clubbing, No edema Neurological: No Focal Motor or Sensory Deficit Rhythm: EKG: ECHO: Stress Test: Cardiac Cath: PCI: CT Surgery: Holter monitor: EPS: PPM: CXR: Chest CT Scan: Medical Necessity - Tobacco Use Smoking Status: Current every day smoker Tobacco Use: Cigarettes Assessment/Plan 1. Coronary artery disease: The patient is status post emergent angioplasty and drug-eluting stenting to his mid LAD with balloon only angioplasty to the ostium of the diagonal branch. Left circumflex and RCA showed minimal nonobstructive coronary disease. LVEF was 35%. This was superimposed on V. fib arrest at home, requiring 1 defibrillation. The patient is status post intra-aortic balloon pump, which was removed on 12/12/2018. His right groin is clean/dry/intact without evidence of thrills, bruits or hematoma. He has 2+ DP and PT pulses bilaterally. Patient did have a small hematoma last evening due to excessive coughing in his right groin, sandbag was placed for about 8 hours, and this morning it is clean/dry/intact without evidence of hematoma, thrills or bruit. Recommend discontinuation of sandbag, and ambulating to chair this afternoon assuming the patient passes his swallow study. Now the patient is extubated, we are awaiting a swallow study. Assuming he passes it, he will resume his baby aspirin, Brilinta. We will start him on Coreg 3.125 mg p.o. twice daily in addition to his lisinopril and titrate each of these up as appropriate. 2. LV dysfunction: The patient's ejection fraction was approximately 35 to 40% post procedure, confirmed by echocardiogram, recommend continuing EMMANUEL inhibitor therapy. Recommend increasing lisinopril to 20 mill grams p.o. daily. In addition we will start Lasix 20 mg p.o. daily for his LV dysfunction as his urine output has dropped off. Recommend repeating his echocardiogram at the conclusion of cardiac rehab to determine if his LV function has normalized. If it has not normalized, the patient may require an AICD placement. 3. Hyperlipidemia: Continue statin based medications. 4. Pulmonary status: Patient continues to slowly improve. Extubated 2 days ago doing fairly well. Again we will start Lasix 20 mg p.o. daily to maintain optimal pulmonary hemodynamics. 5. Thank you very much for the opportunity to participate in the cardiac care of your patient. Patient may be transferred to PCU when bed becomes available. Code Visit Inpatient E&M: 07373 Subs Hosp L2
[2018-12-16 09:02] LABS: Absolute Lymphocyte Count 1.26 X10^3/uL (0.83-4.51); Absolute Neutrophil Count 7.2 X10^3/uL (2.0-7.7); Basophil# 0.05 X10^3/uL; Basophil% 0.5 % (0-1); Eosinophil# 0.39 X10^3/uL; Hematocrit 35.4 % (40-54); Hemoglobin 11.8 g/dL (13.0-16.5); Lymphocyte # 1.26 X10^3/ul (4.0); Mean Corp Hgb Conc 33.3 g/dL (32-36); Mean Corpuscular Hgb 31.6 pg (27.0-32.0); Mean Corpuscular Volume 94.7 fL (80-94); Mean Platelet Vol. 11.1 fl (6.2-12.0); Monocyte# 0.74 X10^3/uL; Monocyte% 7.6 % (0-10); NRBC Flagged by Analyzer 0 % (0-5); Neutrophil # 7.22 X10^3/uL (2.7-7.7); Neutrophil % 74.3 % (47-70); Platelet Count 303 K/mm3 (150-450); RBC Distribution Width CV 13.3 % (11.6-14.6); RBC Distribution Width SD 46.3 fl (35.1-43.9); Red Blood Count 3.74 M/mm3 (4.6-6.2); White Blood Count 9.7 K/mm3 (4.4-11.0)
[2018-12-16 09:14] LABS: Anion Gap 6 (5-15); BUN 34 mg/dL (7-18); BUN/Creat Ratio 33.3 RATIO (10-20); Calcium,Total 8.6 mg/dL (8.5-10.1); Chloride 115 mmol/L (98-107); Creatinine, Serum 1.02 mg/dL (0.70-1.30); EST Glomerular Filtration Rate 80 mL/min (>60); Est Glom Filt Rate - Afr Amer 97 mL/min (>60); Glucose 109 mg/dL (74-106); Magnesium 2.8 mg/dL (1.6-2.6); Potassium 3.4 mmol/L (3.5-5.1); Sodium Level 146 mmol/L (136-145)
[2018-12-16] MEDS: Furosemide 20 MG Tablet PO (09:59)
[2018-12-16] MEDS: Lisinopril 20 MG Tablet PO (09:59)
--- NOTE | 2018-12-16 09:59 | CL.I_ITS ---
Patient Name: EUNICE BURNETTE Study Date: 12/10/2018 Performing: Peter Vazquez MD Ht: 70.86 inches 180 cm : 1960 Wt: 205.03 lbs 93 kg Age: 58 Gender: male BSA: 2.13 PROCEDURE(S) PERFORMED OW41-COG/COR/LV [id number], MARY ELLEN AND/OR PTCA, ARTERY OR GRAFT, SINGLE VESSEL DT05-SMLP, EACH ADD'L CORONARY ART, SAME MAJOR [id number] INSERTION CLINICAL PROFILE AND CO-MORBIDITIES Patient presents with STEMI for emergent cardiac cath.. Pt presents s/p vfib cardiac arrest. Indications: ACS <= 24 hrs, New Onset Angina <= 2 months, Resuscitated Cardiac Arrest, Suspected CAD Heart Failure: NYHA Class: 4, Newly Diagnosed: Yes, Heart Failure Type: Systolic Stress/Imaging Stress/Image Study Performed: No Angina Classification Anginal Classification w/in 2 Weeks: CCS III CAD Presentations: STEMI. Symptom onset Date/Time: 12/09/2018 23:33:00 Time Estimated Comorbidities/Risk Factors: Current/Recent Smoker (< 1year) Hypertension CONCLUSIONS Single vessel CAD of the mid LAD. Successful PTCA/MARY ELLEN mid LAD with a 2.5 x 16 Promus Synergy, post dilated proximally with a 3.0 and 3. 5 x 8 NC Balloon; 100%-->0%, no dissection. Successful PCI with PTCA to the ostial DIAG#1 with a 2.0 x 12 Balloon; 80%-->10%, no dissection. Successful IABP placed at 1:1. STEMI delayed to allow for emergent CT of head to evaluate for possible CVA. RECOMMENDATIONS Referred for immediate PCI Management as per referring Telephone Sex Worker Highly recommend quitting all tobacco products Follow up with primary breakdown man Risk factor modification ASA Indefinitley Plavix for at least 12 months Routine post interventional care Refer for Outpatient Cardiac Rehab Manual sheath removal per protocol Successful emergent IABP placed for vfib arrest, cadiogenic shock, elevated LVEDP and moderate to sev ere LV dysfunction. DESCRIPTION OF PROCEDURE The patient arrived to the procedure lab. The risks and benefits of the procedure as well as a full d escription of our services here and lack of surgical backup were fully explained to the patient and/o r their significant other prior to the catheterization. The Timeout was completed, verifying the sergey ect patient and procedure. The patient's procedural site was prepped and draped in the usual fashion. . Using a modified Seldinger technique, arterial access was obtained via the right femoral artery, a 6Fr sheath was inserted.. Left Coronary Artery selective angiography was performed in multiple view s using a 4 Fr. JL5 catheter. Right Coronary Artery selective angiography was then performed in multi ple views using a 4 Fr. 3DRC catheter. Left Ventriculography was performed in MOSLEY projection using a 4 Fr. Pigtail catheter. LV to AO pullback pressures were then recordedArrow 40cc 7.5F UltraFlex IABP - Qty: 1 Each Part #: [id number], A 40cc IABP catheter was inserted into the right femoral artery, IABP settings: 1:1, IABP Augumented BP: 113 mmHg Systemic BP: 93 mmHg, The IABP catheter and sheath were secured in placeThe images were reviewed and options discussed. A decision was then made to proceed with an Intervention, IVUS or other adjunct procedure. ebu 3.75 Guide catheter was inserted and engaged into the LCA. runthrough Guide wire was advanced to the diag emerge 2.00 x12 Balloon catheter was advanced across lesion in the LAD, mid. PTCA ballo on inflated at 6 atms for 6 secs. [place] AP inserted Pass # 1 [place] AP Removed emerge 2.00 x 12 Ball oon catheter was advanced across lesion in the LAD, mid. PTCA balloon inflated at 6 atms for 7 secs. PTCA balloon inflated at 6 atms for 3 secs. PTCA balloon inflated at 6 atms for 3 secs. Angiogram per formed post balloon dilatation. emerge 2.00 x 12 Balloon catheter was advanced across lesion in the L AD, mid. runthrough Guide wire was advanced to the LAD PTCA balloon inflated at 6 atms for 5 secs. PT CA balloon inflated at 6 atms for 5 secs. 2.50x16 synergy Drug Eluting stent was inserted. Drug Eluti ng stent was advanced across the lesion in the LAD, mid. 3.00x8 nc emerge Balloon catheter was insert ed post stent. 3.50x8 mc emerge Balloon catheter was inserted post stent. runthrough Guide wire was repositioned to the Diagonal and diag wire to the LAD 2.00x12 emerge Balloon catheter was in serted. Balloon catheter was advanced across lesion in the first diagonal, ostial. PTCA balloon infla chris at 6 atms for 8 secs. The arterial sheath was sutured in place and capped CORONARY ANGIOGRAPHY DOMINANCE: Right Dominant LEFT HEART ASSESSMENT Left Ventricular Ejection Fraction: by LV Gram 40-45 % Depressed Left Ventricular systolic function LVEDP: 30 mmHg Anterior Hypokinesis - Moderate to severe LEFT MAIN: Angiographically normal LEFT ANTERIOR DESCENDING ARTERY: MID LAD: is occluded CIRCUMFLEX ARTERY: Mild luminal irregularities less than 30% OM 1: Proximal - Mild luminal irregularities less than 30% RIGHT CORONARY ARTERY: PROX RCA: Angiographically normal MID RCA: Non-obstructive RT PDA: Proximal - Non-obstructive INTERVENTION INFORMATION LESION SITE: LAD (Mid) Lesion Complexity: High/C, lesion at bifurcation: Yes, thrombus present: Yes, lesion length: 16 mm, c ulprit lesion: Yes Pre Stenosis: 100 % Pre intervention ANNETTE flow: 0 PROCEDURE: Balloon Angioplasty, Thrombectomy, Drug Eluting Stent with pre and post dilatation Post Stenosis: 0 % Post intervention ANNETTE flow: 3 Lesion Devices: Lenny Sci EMERGE MR 2.00x12 BALLOON Terumo .014 Runthrough Extra Floppy 180cm straight Terumo .014 Runthrough Extra Floppy 180cm straight Lenny Sci NC EMERGE MR 3.50x08 BALLOON Lenny Sci NC EMERGE MR 3.00x08 BALLOON Lenny Sci Synergy MR MARY ELLEN 2.50x16 Medtronic 6 Fr. [place] AP Aspiration Catheter Medtronic 6 Fr EBU3.75 100cm Guide Catheter COMPLICATIONS No Complications PROCEDURE MEDICATIONS Versed 4 mg IV Versed 2 mg IV Versed 2 mg IV Fentanyl 50 mcg IV Versed 2 mg IV Oxygen: 100 % FiO2 via ventilator. See Resp Record for Settings Oxygen: via Ambu-bag Oxygen: 70 % FiO2 via ventilator. See Resp Record for Settings Oxygen: 50 % FiO2 via ventilator. See Resp Record for Settings Aspirin (325mg) 4 Tabs PO @ 12/10/2018 06:14:56 Heparin 4000 unit(s) IV 12/10/2018 06:12:08 Heparin 6000 unit(s) IV 12/10/2018 06:22:33 Heparin 25,000u / 250ml D5W @ 800 u/hr IV started 12/10/2018 07:03:43 Nitro 200 mcg IC 12/10/2018 06:31:02 Nitro 200 mcg IC 12/10/2018 06:31:02 Nitro 200 mcg IC 12/10/2018 06:37:37 Nitro 200 mcg IC 12/10/2018 06:43:30 IV Bolus: .9 NaCl 1900 ml total 12/10/2018 07:22:19 SUMMARY OF HEMODYNAMIC DATA Time AIR REST ECG 06:07:51 LV 112/9, 29 06:54:50 LV 98/-1, 29 06:55:11 LV 101/2, 30 06:55:18 LVp 104/-1, 24 06:55:25 AOp 102/55 (68) 06:55:30 AO 103/49 (71) SA 06:55:38 RM AIR REST 07:36:07 Signed By Peter Vazquez MD On 12/10/2018 7:37:21 AM Peter Vazquez MD
[2018-12-16] MEDS: Acetaminophen 325 MG Tablet 650 MG PO ×2 (10:00→18:01)
[2018-12-16] MEDS: Heparin Injection 5,000 UNITS/ML Syringe 5000 UNITS SC ×2 (10:00→21:47)
[2018-12-16] MEDS: Ceftriaxone 1 GM/50 ML BAG IV (10:34)
[2018-12-16] MEDS: oxyCODONE 5 MG Tablet PO ×2 (14:26→20:55)
--- NOTE | 2018-12-16 14:33 | CASEMGMT ---
RIYA SCHMIDT NOTE: PT/OT ruth reviewed. RIYA CM to room to talk with pt. Discussed any needs of DME, including walker or shower chair. Pt states he could use a walker but states, my brother has anything I might need and I will borrow from him if I need to. Pt made aware that if he would like a walker of his own, that script an be obtained from MD and processed through insurance. Pt again stated he does not want to do that, that he will just borrow from his brother. Pt made aware if he decides later that he needs any further DME or any other needs to ask for CM. Pt voices understanding. Discharge plan: Home w/[facility]. Olayinka MOLINA RN, CM
--- NOTE | 2018-12-16 14:45 | CHAPLAIN ---
Type of Pastoral Visit ___ Initial Visit _x__ Follow-up Visit ___ On-call Visit ___ General Patient Visit ___ Spiritual Assessment ___ Family Conference ___ Bereavement ___ Rapid Response ___ Code Blue ___ Other (describe below) Pastoral Care Referral From _x__ Patient ___ Family _x__ Nurse ___ Physician ___ Hotel Associate ___ Backup Operator ___ Other (describe below) Sacrament/Intervention _x__ Active listening ___ Anointing ___ Uatsdin ___ Bereavement ___ Communion ___ Lisa exploration ___ _x__ Life review ___ Prayer ___ Reconciliation ___ Sacrament of Sick _x__ Supportive presence ___ Wedding ___ Other (describe below) Pastoral Comments
[2018-12-16] MEDS: Atorvastatin Calcium 80 MG Tablet PO (21:47)
[2018-12-16] MEDS: 0.9% NaCl Peripheral Flush Adult/Peds IV (21:50)
[2018-12-17] VITALS (7 sets, daily range): BP systolic 129–146; BP diastolic 63–76; PULSE 61–69; RESP 15–18; TEMP 36.5–36.8; O2SAT 94–98
[2018-12-17] MEDS: 0.9% NaCl Peripheral Flush Adult/Peds IV ×2 (00:52→09:33)
[2018-12-17 06:33] LABS: Absolute Lymphocyte Count 1.81 X10^3/uL (0.83-4.51); Absolute Neutrophil Count 7.3 X10^3/uL (2.0-7.7); Basophil# 0.09 X10^3/uL; Basophil% 0.8 % (0-1); Eosinophil# 0.51 X10^3/uL; Eosinophils% 4.7 % (0-5); Hemoglobin 11.3 g/dL (13.0-16.5); Lymphocyte # 1.81 X10^3/ul (4.0); Lymphocyte % 16.8 % (19-41); Mean Corp Hgb Conc 32.3 g/dL (32-36); Mean Corpuscular Hgb 30.7 pg (27.0-32.0); Mean Corpuscular Volume 95.1 fL (80-94); Mean Platelet Vol. 11.6 fl (6.2-12.0); Monocyte# 0.98 X10^3/uL; Monocyte% 9.1 % (0-10); NRBC Flagged by Analyzer 0 % (0-5); Neutrophil # 7.25 X10^3/uL (2.7-7.7); Neutrophil % 67.6 % (47-70); POSITIVE MORPHOLOGY YES; Platelet Count 285 K/mm3 (150-450); RBC Distribution Width CV 13.2 % (11.6-14.6); RBC Distribution Width SD 46.1 fl (35.1-43.9); Red Blood Count 3.68 M/mm3 (4.6-6.2); White Blood Count 10.8 K/mm3 (4.4-11.0)
[2018-12-17 06:35] LABS: Differential Indicated SCAN CRITERIA MET
[2018-12-17 06:58] LABS: Anion Gap 10 (5-15); BUN 35 mg/dL (7-18); BUN/Creat Ratio 32.1 RATIO (10-20); Calcium,Total 8.6 mg/dL (8.5-10.1); Chloride 116 mmol/L (98-107); Creatinine, Serum 1.09 mg/dL (0.70-1.30); EST Glomerular Filtration Rate 74 mL/min (>60); Est Glom Filt Rate - Afr Amer 90 mL/min (>60); Glucose 103 mg/dL (74-106); Magnesium 2.7 mg/dL (1.6-2.6); Potassium 3.4 mmol/L (3.5-5.1); Sodium Level 148 mmol/L (136-145)
[2018-12-17] MEDS: oxyCODONE 5 MG Tablet PO (07:28)
[2018-12-17] MEDS: Aspirin 81 MG TAB.CHEW PO (07:28)
--- NOTE | 2018-12-17 08:50 | PN.CARD_ITS ---
Subjectve: Patient doing very well this morning, ambulating well, advancing diet appropriately. No 24-hour events. Telemetry negative. Right groin is clean/dr y/intact. No chest pain. Objective: Vital Signs Temp Pulse Resp BP Pulse Ox 97.7 F L 61 18 146/70 H 94 12/17/18 03:59 12/17/18 04:08 12/17/18 04:08 12/17/18 03:59 12/17/18 07:10 Oxygen Flow Rate (L/min) 2 Oxygen Delivery Method Room Air Weight: 161 lb 6.054 oz Body Mass Index (BMI) 27.3 Finger Stick Blood Glucose 206 Intake and Output for Last 24 Hours 12/15/18 12/16/18 12/17/18 23:59 23:59 23:59 Intake Total 750 / 990 1110 / 1230 320 / 320 Output Total 925 / 955 930 / 1130 360 / 360 Balance -175 / 35 180 / 100 -40 / -40 General: Awake, Alert, Oriented x 3 HEENT: PERRL, EOMI, Sclera Non Icteric Neck: Supple, Good ROM, No Lymph Node Enlargement Lungs: Clear to auscultation Cardiovascular: Regular Rhythm, Normal S1, Normal S2, No Murmurs, No Rubs, No Gallops Vascular: No Carotid Bruits, Normal Femoral Pulses, Normal Radial Pulses, Normal Dorsalis Pedal Pulse, Normal Posterior Tibial Pulses Abdomen: Bowel Sounds Present, Soft, Non Tender, No HSM, No Organomegaly Extremities: No Cyanosis, No Clubbing, No edema Neurological: No Focal Motor or Sensory Deficit 12/16/18 08:50: WBC 9.7, RBC 3.74 L, Hgb 11.8 L, Hct 35.4 L, MCV 94.7 H, MCH 31.6, MCHC 33.3, Plt Count 303, MPV 11.1, Immature Gran % (Auto) 0.600, Neut % (Auto) 74.3 H, Lymph % (Auto) 13.0 L, Yancey % (Auto) 7.6, Eos % (Auto) 4.0, Baso % (Auto) 0.5, Absolute Neuts (auto) 7.2, Nucleated RBC % 0 12/16/18 08:50: Sodium 146 H, Potassium 3.4 L, Chloride 115 H, Carbon Dioxide 25.0, Anion Gap 6, BUN 34 H, Creatinine 1.02, Est GFR (MDRD) Af Amer 97, Est GFR (MDRD) Non-Af 80, BUN/Creatinine Ratio 33.3 H, Glucose 109 H, Calcium 8.6, Magnesium 2.8 H 12/17/18 06:10: WBC 10.8, RBC 3.68 L, Hgb 11.3 L, Hct 35.0 L, MCV 95.1 H, MCH 30.7, MCHC 32.3, Plt Count 285, MPV 11.6, Immature Gran % (Auto) 1.000 H, Neut % (Auto) 67.6, Lymph % (Auto) 16.8 L, Yancey % (Auto) 9.1, Eos % (Auto) 4.7, Baso % (Auto) 0.8, Absolute Neuts (auto) 7.3, Nucleated RBC % 0 12/17/18 06:10: Sodium 148 H, Potassium 3.4 L, Chloride 116 H, Carbon Dioxide 22.0, Anion Gap 10, BUN 35 H, Creatinine 1.09, Est GFR (MDRD) Af Amer 90, Est GFR (MDRD) Non-Af 74, BUN/Creatinine Ratio 32.1 H, Glucose 103, Calcium 8.6, Magnesium 2.7 H Rhythm: EKG: ECHO: Stress Test: Cardiac Cath: PCI: CT Surgery: Holter monitor: EPS: PPM: CXR: Chest CT Scan: Medical Necessity - Tobacco Use Smoking Status: Current every day smoker Tobacco Use: Cigarettes Assessment/Plan 1. Coronary artery disease: The patient is status post emergent angioplasty and drug-eluting stenting to his mid LAD with balloon only angioplasty to the ostium of the diagonal branch. Left circumflex and RCA showed minimal nonobstructive coronary disease. LVEF was 35%. This was superimposed on V. fib arrest at home, requiring 1 defibrillation. The patient is status post intra-aortic balloon pump, which was removed on 12/12/2018. His right groin is clean/dry/intact without evidence of thrills, bruits or hematoma. He has 2+ DP and PT pulses bilaterally. Patient did have a small hematoma last evening due to excessive coughing in his right groin, sandba g was placed for about 8 hours, and this morning it is clean/dry/intact without evidence of hematoma, thrills or bruit. Patient has been moved to the floor and is doing quite well. His diet is adv ancing, and will normalize today. He is taking and tolerating medicines well. Blood pressure is optimized. Telemetry negative. I recommend the patient continue his aspirin, Brilinta, Coreg, and lisinopril at their current dosages. In addition we will continue low-dose Lasix therapy to maintain optimal fluid status. 2. LV dysfunction: The patient's ejection fraction was approximately 35 to 40% post procedure, confirmed by echocardiogram, recommend continuing EMMANUEL inhibitor therapy. Recommend repeating his echocardiogram at the conclusion of cardiac rehab to determine if his LV function has normalized. If it has not normalized, the patient may require an AICD placement. Patient has had no ventricular ectopy since his initial event, and his telemetry is been negative. 3. Hyperlipidemia: Continue statin based medications. 4. Thank you very much for the opportunity to participate in the cardiac care of your patient. Patient may be discharged home if clinically stable. He can f ollow-up in our office in 2 weeks time and with me in 4 to 6 weeks time. Patient is doing well within 4 weeks he can proceed with cardiac rehab. Thank you very much. Code Visit Inpatient E&M: 01671 Subs Hosp L2
[2018-12-17] MEDS: Lisinopril 20 MG Tablet PO (09:22)
[2018-12-17] MEDS: Carvedilol 3.125 MG TABLET PO (09:22)
[2018-12-17] MEDS: Senna/Docusate Sodium 1 Tablet 2 TABLET PO (09:22)
[2018-12-17] MEDS: Furosemide 20 MG Tablet PO (09:22)
[2018-12-17] MEDS: TICAGRELOR 90 MG TABLET PO (09:22)
[2018-12-17] MEDS: Ceftriaxone 1 GM/50 ML BAG IV (10:19)
--- NOTE | 2018-12-17 10:20 | DCINST_ITS ---
- Discharge Diagnoses Current Active Problems: Current Active and Chronic Problems (Last Updated 12/13/18 @ 15:47 by Zaina Hebert) STEMI (ST elevation myocardial infarction) (Acute) Ventricular fibrillation (Acute) Metabolic acidosis (Acute) Metabolic encephalopathy (Acute) Anoxic brain injury (Acute) Tobacco abuse (Chronic) You will use the following diet at home:: Clear liquid, Fluid restricted (specify 2000 mls, 1500 mls) - 2000 Your food should be the consistency of: Regular Discharge Activity: May not drive while taking narcotic pain medications. Allergies/Adverse Reactions: Allergies povidone-iodine [From Betadine] Allergy (Verified 12/10/18 13:06) Rash soap [From Betadine] Allergy (Verified 12/10/18 13:06) Rash Medications to take at Discharge Aspirin [Aspirin, Baby] 81 mg PO DAILY@0800 #90 tab.chew 12/17/18 Atorvastatin Calcium [Lipitor] 80 mg PO QHS #90 tab 12/17/18 Carvedilol [Coreg (Beta Missy)] 3.125 mg PO BID #180 tab 12/17/18 Furosemide [Lasix] 20 mg PO DAILY #90 tab 12/17/18 Lisinopril [Zestril] 20 mg PO DAILY #90 tab 12/17/18 Potassium Chloride [K-Dur] 20 meq PO DAILY #90 tab 12/17/18 Ticagrelor [Brilinta] 90 mg PO BID #180 tab 12/17/18 The following prescriptions were given: Aspirin [Aspirin, Baby] 81 mg PO DAILY@0800 #90 tab.chew Transmission Status: Pending to [facility] Ticagrelor [Brilinta] 90 mg PO BID #180 tab Transmission Status: Pending to [facility] Carvedilol [Coreg (Beta Missy)] 3.125 mg PO BID #180 tab Transmission Status: Pending to [facility] Potassium Chloride [K-Dur] 20 meq PO DAILY #90 tab Transmission Status: Pending to [facility] Furosemide [Lasix] 20 mg PO DAILY #90 tab Transmission Status: Pending to [facility] Atorvastatin Calcium [Lipitor] 80 mg PO QHS #90 tab Transmission Status: Pending to [facility] Lisinopril [Zestril] 20 mg PO DAILY #90 tab Transmission Status: Pending to [facility] Primary Care Physician: Glenn Parekh MD [Primary Care Provider] - Please follow up with your Primary Care Physician in: in 1-2 weeks Test Results: Test results from this visit will be discussed in further detail at your follow- up appointment, if applicable. Please Follow Up With: Peter Vazquez MD When: in 2-4 weeks Proposed Discharge Date: 12/17/18
--- NOTE | 2018-12-17 10:23 | PCM.DC.SUM ---
Discharge Date and Diagnosis - Problem List Patient Problems: Active and Suspected Problems (Last Updated 12/13/18 @ 15:47 by Zaina Hebert) STEMI (ST elevation myocardial infarction) (Acute) Ventricular fibrillation (Acute) Metabolic acidosis (Acute) Metabolic encephalopathy (Acute) Anoxic brain injury (Acute) Upper GI hemorrhage (Suspected) Date of Admission: 12/10/18 Date of Discharge: 12/17/18 - Primary Discharge Diagnosis Active and Suspected Problems (Last Updated 12/13/18 @ 15:47 by Zaina Hebert) STEMI (ST elevation myocardial infarction) (Acute) Ventricular fibrillation (Acute) Metabolic acidosis (Acute) Metabolic encephalopathy (Acute) Anoxic brain injury (Acute) Upper GI hemorrhage (Suspected) - Secondary Discharge Diagnosis Chronic Problems (Last Updated 12/13/18 @ 15:47 by Zaina Hebert) Arteriosclerosis of coronary artery in patient with history of myocardial infarction (Chronic 12/10/18) Stented coronary artery (Chronic 12/10/18) The patient is status post emergent angioplasty and drug-eluting stenting to his mid LAD with balloon only angioplasty to the ostium of the diagonal branch. Left circumflex and RCA showed minimal nonobstructive coronary disease. LVEF was 35%. This was superimposed on V. fib arrest at home, requiring 1 defibrillation. The patient is status post intra-aortic balloon pump, which was removed on 12/12/2018. Tobacco abuse (Chronic) Hospital Course and Treatment Imaging Results: Clinical Impression(s) from Imaging Studies Brain CT 12/10/18 05:39 IMPRESSION: Possible mild edema. Possible anoxic brain injury. No acute hemorrhage or overt ischemic changes on submitted images. These findings were discussed on the telephone with Dr. Guthrie at 608 hrs. EST on 12/10/2018. Electronically Signed: Urvashi Arnold MD at 6:12 EDT , Service support , ADDENDUM: 12/10/18 0620 IMPRESSION: Possible mild edema. Possible anoxic brain injury. No acute hemorrhage or overt ischemic changes on submitted images. These findings were discussed on the telephone with Dr. Guthrie at 608 hrs. EST on 12/10/2018. N.B. : The above information has been verbally conveyed by Urvashi Arnold MD to Shantelle Guthrie MD, MD, on 12/10/2018 06:13:33 (ET). Electronically Signed: Urvashi Arnold MD at 6:12 EDT , Service support , Chest X-Ray 12/10/18 05:40 IMPRESSION: Probable vascular congestion. Possible underlying component of COPD. Lines appear in good position. Electronically Signed: Urvashi Arnold MD at 6:01 EDT , Service support , Chest X-Ray 12/10/18 08:40 IMPRESSION: Stable examination demonstrating mild degree of vascular congestion. The support tubes are unchanged. Electronically Signed: Martín Escudero, at 14:08 EDT , Service support , Chest X-Ray 12/10/18 12:02 IMPRESSION: No interval change, stable appearance of the previously noted support lines and tubes. Left-sided PICC line tip in the distal SVC Electronically Signed: Chris Harrell MD at 13:01 EDT , Service support , Chest X-Ray 12/11/18 05:55 IMPRESSION: Lines as above. Improved aeration, decrease of interstitial opacification particularly in the right upper lung. Electronically Signed: Urvashi Arnold MD at 6:13 EDT , Service support , Chest X-Ray 12/11/18 12:30 IMPRESSION: No change. at 2322 Reported and signed by: Rico Bauman MD Electronically Signed: Rico Bauman MD at 23:21 EDT Tel , Service support , Chest X-Ray 12/12/18 02:10 IMPRESSION: No change. at 0245 Reported and signed by: Rico Bauman MD Electronically Signed: Rico Bauman MD at 2:44 EDT Tel , Service support , Brain CT 12/13/18 08:01 IMPRESSION: Stable examination. Sinusitis. Electronically Signed: Martín Kota, at 13:50 EDT , Service support , KUB X-Ray 12/14/18 15:12 IMPRESSION: The tip of the nasogastric tube is in the body of the stomach. Electronically Signed: Martín Escudero, at 15:49 EDT , Service support , Microbiology 12/11/18 13:05 Blood Culture (Wb) - Pic Blood Culture - Final No growth in 5 days. 12/11/18 13:00 Blood Culture (Wb) - Right Forearm Blood Culture - Final No growth in 5 days. 12/11/18 02:00 Sputum, Induced/Lukens Gram Stain - Final 12/11/18 02:00 Sputum, Induced/Lukens Respiratory Culture - Final Klebsiella pneumoniae sp pneum Citrobacter freundii Moraxella(Yary.)Catarrhalis 12/11/18 09:28 Sputum, Induced/Lukens Gram Stain - Final 12/11/18 09:28 Sputum, Induced/Lukens Respiratory Culture - Final GNR lactose marking devices assembler GNR lactose marking devices assembler#2 Gram negative diplococci 12/11/18 19:40 Urine Catheter - Angel Urine Culture - Final Presumptive E. coli 2D Doppler, Color Flow transthoracic echocardiogram. Exam performed portable in ICU/CCU. Left Ventricle Normal size and thickness. The estimated ejection fraction is 35-40 %. Anterio-Basal: Akinetic. Basal anteroseptal: Akinetic. Mid-Anterior : Akinetic. Right Ventricle Normal size and thickness. Normal systolic function. Atria Normal left atrium. Normal right atrium. Normal atrial septum. Mitral Valve The mitral valve is structurally normal. No prolapse or stenosis seen. Tricuspid Valve Normal tricuspid valve. Trivial tricuspid valve insufficiency. Right ventricular systolic pressure estimated to be 22 mmHg. Aortic Valve Trisinus/trileaflet aortic valve. Normal aortic valve. Pulmonic Valve Normal pulmonic valve. Great Vessels Normal aortic root. Normal arch. The inferior vena cava is dilated. No collapse of the inferior vena cava. Pericardium/Pleural No pericardial effusion. MMode/2D Measurements & Calculations LVIDd: 4.3 cm IVSd: 1.1 cm LA dimension: 3.6 cm LVIDs: 3.0 cm LVPWd: 1.1 cm FS: 29.5 % LAV(MOD-bp): 52.8 ml LVAd ap4: 29.4 cm2 SV(MOD-sp4): 38.9 ml LAV(MOD-bp) Indexed: 24.8 ml/m2 EDV(MOD-sp4): 89.7 ml LAV(MOD-sp2): 47.6 ml EDV(sp4-el): 91.3 ml LAV(MOD-sp4): 50.4 ml LVAs ap4: 21.9 cm2 ESV(MOD-sp4): 50.7 ml ESV(sp4-el): 52.9 ml EF(MOD-sp4): 43.4 % EF(sp4-el): 42.1 % SV(sp4-el): 38.5 ml LA A4 area: 19.4 cm2 RA A4 area: 15.9 cm2 Time Measurements MV dec time: 0.18 sec Doppler Measurements & Calculations MV E max derrick: 70.2 cm/sec Lat Peak E' Derrick: 7.9 cm/sec Med Peak E' Derrick: 4.9 cm/sec MV A max derrick: 51.3 cm/sec E/E' lat: 8.8 E/E' med: 14.3 MV E/A: 1.4 MV V2 max: 69.6 cm/sec MV P1/2t max derrick: 68.5 cm/sec Ao V2 max: 101.1 cm/sec MV max P.9 mmHg MV P1/2t: 88.8 msec Ao max P.1 mmHg MV V2 mean: 34.8 cm/sec Ao V2 mean: 66.5 cm/sec MV mean P.58 mmHg MV dec slope: 225.9 cm/sec2 Ao mean P.1 mmHg MV V2 VTI: 21.2 cm MVA(P1/2t): 2.5 cm2 Ao V2 VTI: 15.9 cm LV V1 max: 89.1 cm/sec PA V2 max: 57.8 cm/sec TR max derrick: 206.1 cm/sec LV V1 max P.2 mmHg TR max P.0 mmHg LV V1 mean P.4 mmHg LV V1 mean: 53.0 cm/sec LV V1 VTI: 16.8 cm Interpretation Summary The estimated ejection fraction is 35-40 %. Trivial tricuspid valve insufficiency. Right ventricular systolic pressure estimated to be 22 mmHg. Anterio-Basal: Akinetic. Basal anteroseptal: Akinetic. Mid-Anterior : Akinetic. There is no comparison study available. Ordering Physician: Peter Vazquez Referring Physician: IVONNE PAREKH Performed By: Zheng Sinclair RCS 12/10/18 1011 Date Peter Vazquez MD Summary of Care Provided: Patient is a 58-year-old gentleman admitted after he was found unresponsive. An assessment of acute ST segment elevation UT made. Patient underwent emergent left heart catheterization with stent placed to his LAD. Postprocedure patient became hypotensive stating the use of IABP. He was also found to be in acute respiratory failure and subsequently intubated and admitted to the intensive care unit. 1. Acute ST segment elevation UT ;patient underwent emergency left heart catheterization with PCI/MARY ELLEN to an LAD lesion 2019 subsequently managed with recommended medications including statin therapy, beta-blockers, ARB and dual antiplatelet therapy with aspirin and Plavix 2. Cardiogenic shock ~ patient was managed on IABP which was removed on 12/12/2018 ?12/15/2018 cardiogenic shock resolved: Managed on Lasix. 3. Acute hypoxic respiratory failure secondary to patient cardiogenic shock as well as acute ST elevation UT with underlying COPD ~Patient admitted to the intensive care unit vent management deferred to pulmonary medicine. Attempted weaning on 12/13/2018 was unsuccessful ?12/14/2018: Patient currently undergoing weaning trial in ICU ?12/15/2018 patient was successfully weaned off the vent to the day prior. Plan is for patient undergo patient swallow eval prior to initiation of oral feeding. Sputum cultures grew Klebsiella pneumoniae sp ; Citrobacter freundii Moraxella(Yary.)Catarrhalis. Currently on Rocephin 4. Suspected anoxic brain injury ~CT obtained on 12/10/2018 reported possible edema with possible anoxic brain injury plan is to repeat CAT scan 12/13/2018. 5. Encephalopathy suspected to be secondary to anoxic brain injury 6. DVT prophylaxis patient is on heparin 7. Tobacco dependence ~ do plan to nurses' association counselor once patient is off the vent 8. Hypokalemia ~ corrected per protocol 9. Asymptomatic bacteriuria patient grew E. coli from his urine Patient Problems: Active and Suspected Problems (Last Updated 12/13/18 @ 15:47 by Zaina Hebert) STEMI (ST elevation myocardial infarction) (Acute) Ventricular fibrillation (Acute) Metabolic acidosis (Acute) Metabolic encephalopathy (Acute) Anoxic brain injury (Acute) Upper GI hemorrhage (Suspected) Objective: GENERAL: Patient is cooperative HEENT: Dry oral mucosa EYES; Anicteric, Normal Conjunctiva NECK; supple, normal thyroid, RESPIRATORY: Diminished to auscultation CARDIOVASCULAR: Regular S1 S2, GI: soft, non-tender, normoactive bowel sounds, : No Renal angle tenderness; EXTREMITIES: No edema, no clubbing, no cyanosis. MUSCULOSKELETAL: No no muscle waisting NEURO: Awake no focal deficit SKIN: No Rash PSYCH; flat affect - Physical Exam Vital Signs Temp Pulse Resp BP Pulse Ox 97.9 F 69 15 129/76 H 98 12/17/18 09:16 12/17/18 09:16 12/17/18 09:16 12/17/18 09:16 12/17/18 09:16 Oxygen Flow Rate (L/min) 2 Oxygen Delivery Method Room Air Weight: 73.2 kg Body Mass Index (BMI) 27.3 Finger Stick Blood Glucose 206 Intake and Output for Last 24 Hours 12/15/18 12/16/18 12/17/18 23:59 23:59 23:59 Intake Total 750 / 990 1110 / 1230 430 / 430 Output Total 925 / 955 930 / 1130 360 / 360 Balance -175 / 35 180 / 100 70 / 70 Microbiology Past 72 Hours 12/11/18 13:05 Blood Culture - Final Blood Culture (Wb) - Pic No growth in 5 days. 12/11/18 13:00 Blood Culture - Final Blood Culture (Wb) - Right Forearm No growth in 5 days. 12/11/18 02:00 Gram Stain - Final Sputum, Induced/Lukens Respiratory Culture - Final Klebsiella pneumoniae sp pneum Citrobacter freundii Moraxella(Yary.)Catarrhalis Laboratory Tests Past 24 Hrs 12/17/18 12/17/18 06:10 06:10 WBC 10.8 RBC 3.68 L Hgb 11.3 L Hct 35.0 L MCV 95.1 H MCH 30.7 MCHC 32.3 RDW Std Deviation 46.1 H RDW Coeff of [place] 13.2 Plt Count 285 MPV 11.6 Immature Gran % (Auto) 1.000 H Neut % (Auto) 67.6 Lymph % (Auto) 16.8 L Castro % (Auto) 9.1 Eos % (Auto) 4.7 Baso % (Auto) 0.8 Absolute Neuts (auto) 7.3 Absolute Lymphs (auto) 1.81 Nucleated RBC % 0 Sodium 148 H Potassium 3.4 L Chloride 116 H Carbon Dioxide 22.0 Anion Gap 10 BUN 35 H Creatinine 1.09 Estim Creat Clear Calc 77.20 Est GFR (MDRD) Af Amer 90 Est GFR (MDRD) Non-Af 74 BUN/Creatinine Ratio 32.1 H Glucose 103 Calcium 8.6 Magnesium 2.7 H Discharge Diet: Low fat/ Low Cholesterol, 8 Cup Fluid Restriciton Discharge Activity: May not drive while taking narcotic pain medications. Home Medications: Medications to take at Discharge Aspirin [Aspirin, Baby] 81 mg PO DAILY@0800 #90 tab.chew 12/17/18 Atorvastatin Calcium [Lipitor] 80 mg PO QHS #90 tab 12/17/18 Carvedilol [Coreg (Beta Missy)] 3.125 mg PO BID #180 tab 12/17/18 Furosemide [Lasix] 20 mg PO DAILY #90 tab 12/17/18 Lisinopril [Zestril] 20 mg PO DAILY #90 tab 12/17/18 Potassium Chloride [K-Dur] 20 meq PO DAILY #90 tab 12/17/18 Ticagrelor [Brilinta] 90 mg PO BID #180 tab 12/17/18 Following Prescrptions Were Given to Patient: Aspirin [Aspirin, Baby] 81 mg PO DAILY@0800 #90 tab.chew Transmission Status: Pending to [facility] Ticagrelor [Brilinta] 90 mg PO BID #180 tab Transmission Status: Pending to [facility] Carvedilol [Coreg (Beta Missy)] 3.125 mg PO BID #180 tab Transmission Status: Pending to [facility] Potassium Chloride [K-Dur] 20 meq PO DAILY #90 tab Transmission Status: Pending to [facility] Furosemide [Lasix] 20 mg PO DAILY #90 tab Transmission Status: Pending to [facility] Atorvastatin Calcium [Lipitor] 80 mg PO QHS #90 tab Transmission Status: Pending to [facility] Lisinopril [Zestril] 20 mg PO DAILY #90 tab Transmission Status: Pending to [facility] Primary Care Physician: Glenn Parekh MD [Primary Care Provider] - Please follow up with your Primary Care Physician in: in 1-2 weeks Please Follow Up With: Peter Vazquez MD When: in 2-4 weeks Disposition: Home Minutes spent on discharge:: 45 Patient Condition:: Stable Medical Necessity - Tobacco Use Smoking Status: Current every day smoker Tobacco Use: Cigarettes Meaningful Use Info Meaningful Use Diagnoses (Choose all that apply): AMI - AMI Aspirin given w/in 24hrs of arrival?: Yes ASA at discharge?: Yes Statins at discharge?: Yes Jose/ARB at discharge?: Yes Beta Missy at discharge?: Yes Done w/ Acute UT measure.: Yes Documented LVEF (%): 35 Code Visit Inpatient E&M: 01769 Disch Hosp
--- NOTE | 2018-12-17 10:34 | CASEMGMT ---
Addendum entered by Susan Willis 12/17/18 11:28: Pt's discharge summary and instructions faxed to Devika, pt's [facility] ROXANA, at this time. Pt is aware and agreeable. Josee RITTER CM Original Note: Pt is requesting rollator and BSC at discharge. Per [facility] website, [facility] is the only local DME company in-network with pt insurance at this time. Pt updated at this time, voices understanding. Pt's [facility] CM, Devika, is notified that pt with probable discharge today and that pt requesting DME, voices understanding. Devika would like D/C info faxed to her at [phone] once obtained. Per Gold RITTER CM, pt was already set up with [facility] at discharge and Sydnee from [facility] will be notified once discharge order in. Josee RITTER CM
--- NOTE | 2018-12-17 12:00 | NURSING ---
Left upper arm PICC discontinued per orders. Pt was lying flat in bed, sterile occlusive dressing placed over the site. no bleeding,bruising, or hematoma noted. pt tolerated well. pt remained flat in bed for aprox 10 minutes.
--- NOTE | 2018-12-17 12:07 | PHA.DC.MC ---
Pharmacy Service has performed discharge medication reconciliation and counseling for this patient. 1. ASPIRIN 81MG PO DAILY 2. ATORVASTATIN 80MG PO QHS 3. CARVEDILOL 3.125MG PO BID 4. FUROSEMIDE 20MG PO DAILY 5. POTASSIUM CHLORIDE 20MEQ PO DAILY 6. TICAGRELOR 90MG PO BID 7. LISINOPRIL 20MG PO DAILY The patient's discharge medication list was reviewed for discrepancies and discrepancies were resolved. Home Medications Aspirin [Aspirin, Baby] 81 mg PO DAILY@0800 #90 tab.chew 12/17/18 Atorvastatin Calcium [Lipitor] 80 mg PO QHS #90 tab 12/17/18 Carvedilol [Coreg (Beta Missy)] 3.125 mg PO BID #180 tab 12/17/18 Furosemide [Lasix] 20 mg PO DAILY #90 tab 12/17/18 Lisinopril [Zestril] 20 mg PO DAILY #90 tab 12/17/18 Potassium Chloride [K-Dur] 20 meq PO DAILY #90 tab 12/17/18 Ticagrelor [Brilinta] 90 mg PO BID #180 tab 12/17/18 The patient was counseled on the following discharge medications and changes in medications for homegoing were reviewed. The Reason for Use, instructions for use, and potential side effects were reviewed for all new medications. The patient's questions regarding all of their medications were answered. The patient was able to verbally demonstrate an understanding of their discharge medications.
--- NOTE | 2018-12-17 13:51 | CASEMGMT ---
RIYA CM NOTE: Call placed to [facility] for toro check on Brilinta. Per pharmacist, pt's [id number] cost is $0--there is no co-pay for any of pt's medications. Olayinka MOLINA RN CM
== END 2018-12-17 12:18 | disposition home or self-care (01) | DRG 270 ==
LOC: ED 05:43 → ICU 09:23 → PCU 12-16 17:17
PROVIDERS: Family Medicine; Internal Medicine Cardiovascular Disease; Internal Medicine Critical Care Medicine; Specialist; Admitting Provider Internal Medicine Cardiovascular Disease; Emergency Provider Emergency Medicine; Family Provider Family Medicine; PCP Family Medicine; Referring Provider Internal Medicine Cardiovascular Disease; Visit Provider Internal Medicine
DX: I21.02 ST elevation (STEMI) myocardial infarction involving left anterior descending coronary artery (principal); I49.01 Ventricular fibrillation; G93.41 Metabolic encephalopathy; J96.01 Acute respiratory failure with hypoxia; R57.0 Cardiogenic shock; E87.2 Acidosis; G93.1 Anoxic brain damage, not elsewhere classified; K92.2 Gastrointestinal hemorrhage, unspecified; F17.210 Nicotine dependence, cigarettes, uncomplicated; E87.6 Hypokalemia; E78.5 Hyperlipidemia, unspecified; I25.10 Atherosclerotic heart disease of native coronary artery without angina pectoris; J44.9 Chronic obstructive pulmonary disease, unspecified; R82.71 Bacteriuria; R21 Rash and other nonspecific skin eruption
CPT/HCPCS: 31500; 31720; 33967; 36415; 36569; 36600; 51702; 70450; 71045; 74018; 80048; 80053; 82803; 82962; 83735; 83880; 84443; 84484; 85014; 85018; 85025; 85027; 85347; 85610; 85730; 86850; 86900; 86901; 87040; 87070; 87077; 87086; 87088; 87186; 87205; 87641; 92526; 92610; 92921; 92941; 93005; 93306; 93458; 94002; 94003; 94640; 94660; 95831; 97162; 97166; 97530; 97802; 97803; 99152; 99153; 99251; 99285; J7030; J7050; Q9957; Q9967; A4216; C1725; C1757; C1769; C1874; C1887; C9606; G0463; J0330; J1327; J1940; J2405; J3490

== ENCOUNTER 2019-01-01 10:24 | Emergency (ER) | payer MEDICARE, SELFPAY ==
[2018-12-10 08:34] VITALS: BMI 27.3
[2018-12-15 13:42] VITALS: BMI 28.6
[2019-01-01 10:25] VITALS: BP 102/52; PULSE 64; RESP 16; TEMP 37.1; O2SAT 99; BMI 25.8
--- NOTE | 2019-01-01 10:34 | EKG12_ITS ---
Test Reason : Blood Pressure : / mmHG Vent. Rate : 055 BPM Atrial Rate : 055 BPM P-R Int : 154 ms QRS Dur : 082 ms QT Int : 442 ms P-R-T Axes : -02 083 110 degrees QTc Int : 422 ms Sinus bradycardia Septal infarct , age undetermined Marked T wave abnormality, consider anterolateral ischemia Abnormal ECG Confirmed by ECHO ANDERSON, MUSA ([id number]), commissioning editor HAL CHIU ([id number]) on 01/05/2019 9:45:17 AM Referred By: Confirmed By:USAMA DODGE MD
--- NOTE | 2019-01-01 10:35 | CT_ITS ---
STUDY: CT ABDOMEN AND PELVIS WITHOUT CONTRAST REASON FOR EXAM: Male, 58 years old. Left flank pain RADIATION DOSAGE (If Supplied By Facility): CTDIvol = ( 6.42 ) mGy, DLP = ( 315.73 ) mGycm TECHNIQUE: Transaxial images were obtained from the dome of the diaphragm to the symphysis pubis without oral contrast, and without intravenous contrast. Sagittal and coronal images were reconstructed. Individualized dose optimization techniques were used for this CT. COMPARISON: None. FINDINGS: The visualized lung bases are unremarkable. The visualized portions of the heart are within normal limits. Normal liver. Normal gallbladder and extrahepatic biliary system. Normal spleen. Normal pancreas. Normal bilateral adrenal glands. Normal right kidney. Normal left kidney. Normal visualized stomach. Normal small intestine. Normal colon. The appendix is visualized and appears normal. Normal abdominal aorta. Normal inferior vena cava. Normal retroperitoneum. Normal urinary bladder. Mild increased attenuation within the right inguinal subcutaneous soft tissue is noted without drainable collection. Normal abdominal wall. Normal osseous structures. CT/Abdomen/Pelvis without Cont IMPRESSION: Mild increased attenuation within the right inguinal subcutaneous soft tissue is noted without drainable collection. No hydronephrosis. No renal stones. Electronically Signed: Pedrito Knapp DO at 12:24 EDT Tel [phone], Service support ,
--- NOTE | 2019-01-01 10:39 | ED.DCSUM_ITS ---
- ER Visit Summary Date of Service: 01/01/19 Chief Complaint: [Back pain] History of Present Illness: The patient is a 58 M [presents to the emergency department complaint of left upper back pain. Patient states the pain can came on suddenly yesterday and he rates it a 10 out of 10. Patient states that ce rtain positions seem to help it. He denies urinary symptoms other than some frequency. He denies any fever. He denies any cough. Patient does state that he had a heart attack couple weeks ago. Patient has a cardiac stent. Patient has some residual chest discomfort ever since he is left the hospital. Patient denies any pain radiating down his legs. He denies weakness in extremities. He denies any change in bowel bladder function. Patient is never had discomfort like this before.] Physical Examination: [HEMATTY-PERRLA, EOMI. Cranial nerves II through XII grossly intact. TMs clear. Mucous membranes moist. No adenopathy. Cardiovascular-regular rate and rhythm without murmur or ectopy Lungs-clear to auscultation, chest wall stable without crepitus or subcu em physema Abdomen-normoactive bowel sounds, soft, nontender, no rebound or rigidity, no peritoneal signs. Back exam-patient has tenderness over the left upper back and ribs that seems to somewhat reproduce his pain. Patient does have CVA tenderness on the left. Deep tendon reflexes are plus 2 out of 4 bilaterally at the patella and Achilles. Patient has normal 5 extension. Extremities-intact ?4, normal range of motion, normal pulses, atraumatic] Test Results: [EKG obtained on arrival shows sinus rhythm with a ventricular rate of 55 bpm with marked T wave abnormality anterior laterally. When compared with prior EKG these changes are new. Patient had a troponin was less than 0.015. CBC with differential unremarkable. Chemistries unremarkable. D-dimer was elevated 0.96. Urinalysis was normal. Chest x-ray was normal. CT scan of the abdomen pelvis without contrast showed essentially nothing acute he had some increased attenuation in the right inguinal subcu fat but no abscess or anything significant. 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 Patient was remedicated with morphine as the pain returned. I did discuss case with vascular surgeon on-call who felt the finding of the occluded subclavian artery was incidental finding but would be happy to see the patient in the office for follow-up for further work-up and evaluation. He is comfortable with the Plavix and the Brilinta to continue.] Treatment Plan: [Patient will be given a prescription for Flexeril and [place]. Patient will be given a referral to vascular surgery for follow-up.] Disposition: [Discharged home in stable condition.] Impression: [Back pain-suspect musculoskeletal Occluded left subclavian artery] This note was generated with [facility] dictation software. It may contain incorrect words, spelling, and punctuation that were not noted in review of the chart prior to signing ED Disposition - Plan for ED Patient: Referrals: Glenn Parekh MD [NON-STAFF] -
--- NOTE | 2019-01-01 10:40 | RAD_ITS ---
STUDY: X-RAY CHEST REASON FOR EXAM: Male, 58 years old. Back pain TECHNIQUE: Frontal view COMPARISON: None. FINDINGS: The lungs are clear and expanded. There is no demonstrated pleural abnormality. Normal size heart. Normal mediastinum and max. Normal visualized pulmonary arteries. Normal visualized aortic arch and descending thoracic aorta. Normal visualized thoracic spine. Normal visualized ribs, clavicles, and shoulders. There is no demonstrated abnormality of the visualized soft tissue structures of the upper abdomen. RAD/Chest 1 View (Portable) IMPRESSION: Normal x-ray examination of the chest. Electronically Signed: Pedrito Knapp DO at 10:52 EDT Tel [phone], Service support ,
[2019-01-01] MEDS: Morphine 4 MG/ML Syringe IV ×2 (11:02→13:58)
[2019-01-01] MEDS: Ondansetron 4 MG/2 ML Vial IV (11:02)
[2019-01-01] MEDS: 0.9% Normal Saline 1,000 ML 150 ML IV (11:04)
[2019-01-01 11:19] LABS: Absolute Lymphocyte Count 1.87 X10^3/uL (0.83-4.51); Absolute Neutrophil Count 6.3 X10^3/uL (2.0-7.7); Basophil# 0.14 X10^3/uL; Basophil% 1.5 % (0-1); Eosinophil# 0.45 X10^3/uL; Eosinophils% 4.8 % (0-5); Hematocrit 39.7 % (40-54); Hemoglobin 12.9 g/dL (13.0-16.5); Lymphocyte # 1.87 X10^3/ul (4.0); Lymphocyte % 19.8 % (19-41); Mean Corp Hgb Conc 32.5 g/dL (32-36); Mean Corpuscular Hgb 30.9 pg (27.0-32.0); Mean Corpuscular Volume 95.2 fL (80-94); Mean Platelet Vol. 11.3 fl (6.2-12.0); Monocyte% 6.4 % (0-10); NRBC Flagged by Analyzer 0 % (0-5); Neutrophil # 6.28 X10^3/uL (2.7-7.7); Neutrophil % 66.4 % (47-70); Platelet Count 348 K/mm3 (150-450); RBC Distribution Width CV 13.9 % (11.6-14.6); RBC Distribution Width SD 48.4 fl (35.1-43.9); Red Blood Count 4.17 M/mm3 (4.6-6.2); White Blood Count 9.4 K/mm3 (4.4-11.0)
[2019-01-01 11:39] LABS: Anion Gap 7 (5-15); BUN 18 mg/dL (7-18); BUN/Creat Ratio 13.6 RATIO (10-20); Calcium,Total 9.3 mg/dL (8.5-10.1); Chloride 105 mmol/L (98-107); Creatinine, Serum 1.32 mg/dL (0.70-1.30); EST Glomerular Filtration Rate 59 mL/min (>60); Est Glom Filt Rate - Afr Amer 72 mL/min (>60); Estimated Creatinine Clearance 55.72 ml/min; Glucose 89 mg/dL (74-106); Potassium 4.2 mmol/L (3.5-5.1); Sodium Level 139 mmol/L (136-145)
[2019-01-01 11:54] LABS: D-Dimer Quantitative (DVT/PE) 0.96 FEU/ug/m (0.27-0.49)
--- NOTE | 2019-01-01 11:55 | ED.RN ---
LAB CALLS WITH CRITICAL RESULT, D-DIMER 0.96, DR. FUNES MADE AWARE.
--- NOTE | 2019-01-01 12:11 | CT_ITS ---
STUDY: CTA CHEST REASON FOR EXAM: Male, 58 years old. Back pain RADIATION DOSAGE (If Supplied By Facility): CTDIvol = ( 10.38 ) mGy, DLP = ( 405.30 ) mGycm TECHNIQUE: The examination was performed with the intravenous administration of IV Isovue 370 100. Post-processing of the angiographic images was performed, with multiplanar reformation and 3D reconstruction. Individualized dose optimization techniques were used for this CT. COMPARISON: None. FINDINGS: Normal enhancement of the main pulmonary artery and right and left pulmonary arteries. Normal enhancement of the bilateral peripheral pulmonary arteries. There is no demonstrated pulmonary embolism. Normal thoracic aorta and visualized great vessels. There is no demonstrated aortic dissection. Normal heart and pericardium. Normal mediastinum. Normal hilar regions. Normal visualized trachea and bronchi. The lungs are well expanded. Normal pulmonary parenchyma. Normal pleura. Normal chest wall structures. There is occlusion of the proximal portion of the left subclavian artery, with likely distal reconstitution . Normal osseous structures. Normal visualized upper abdomen. CT/CTA Chest W/WO Contrast IMPRESSION: No demonstrated pulmonary embolism or arterial dissection. Occluded left subclavian artery. Electronically Signed: Pedrito Knapp DO at 13:57 EDT Tel [phone], Service support ,
[2019-01-01 12:31] VITALS: RESP 18
[2019-01-01 13:06] LABS: Bacteria 0 SEEN /hpf (None Seen); Mucous, Urine 0 SEEN /hpf (<or=2+); Red Blood Cells-Urine 0 SEEN /hpf (0-5); Squamous Epithelial Cells - UA 0 SEEN /hpf (0-5); White Blood Cells 0 SEEN /hpf (0-5)
[2019-01-01 13:36] LABS: Color, Urine Yellow (Yellow); Glucose, Dipstick Normal (Normal); Ketone-Dipstick Negative (Negative); Leukocyte Esterase-Dipstick Negative /ul (Negative); Nitrite-Dipstick Negative (Negative); Occult Blood-Urine Negative /ul (Negative); Protein-Dipstick Negative (Negative); Specific Gravity, Urine 1.005 (1.002-1.030); Urine Bilirubin Dipstick Negative (Negative); Urine Clarity Clear (Clear); Urine Urobilinogen Normal (Normal)
--- NOTE | 2019-01-01 14:36 | DCINST.ED_ITS ---
ED Disposition - Plan for ED Patient: Instructions: BACK PAIN (Acute or Chronic) Prescriptions: cycloBENZAPRine HCl [Flexeril] 10 mg PO TID PRN #20 tab PRN Reason: Muscle Spasm Prescription Printed Hydrocodone Bitart/Apap 5-325 [[place] 5MG-325MG] 1 tab PO Q4H PRN PRN 2 Days #20 tab PRN Reason: Pain Prescription Printed Referrals: Glenn Parekh MD [NON-STAFF] - Jeremias Aburto MD [STAFF PHYSICIAN] - 3-5 Days Additional Instructions: See vascular surgeon for follow up on Occluded Subclavian artery
[2019-01-01 14:50] VITALS: BP 108/60; PULSE 64; RESP 17; O2SAT 99
== END 2019-01-01 14:51 | disposition home or self-care (01) ==
LOC: ED 11:04
PROVIDERS: Emergency Provider Emergency Medicine; Family Provider Family Medicine; PCP Family Medicine
DX: M54.9 Dorsalgia, unspecified (principal); I70.8 Atherosclerosis of other arteries; R35.0 Frequency of micturition; R79.89 Other specified abnormal findings of blood chemistry; I25.10 Atherosclerotic heart disease of native coronary artery without angina pectoris; I25.2 Old myocardial infarction; Z87.19 Personal history of other diseases of the digestive system; Z95.5 Presence of coronary angioplasty implant and graft; Z79.82 Long term (current) use of aspirin; Z79.899 Other long term (current) drug therapy; Z87.891 Personal history of nicotine dependence
CPT/HCPCS: 71045; 71275; 74176; 80048; 81001; 84484; 85025; 85379; 93005; 96361; 96374; 96375; 96376; 99285; J7030; Q9967; J2405

== ENCOUNTER 2019-01-18 10:11 | Emergency (ER) | payer MEDICARE, SELFPAY ==
[2018-12-15 13:42] VITALS: BMI 28.6
[2019-01-06 08:46] VITALS: BMI 26.3
[2019-01-18 10:12] VITALS: BP 135/105; PULSE 85; RESP 18; TEMP 36.7; O2SAT 99; BMI 23.9
--- NOTE | 2019-01-18 10:22 | EKG12_ITS ---
Test Reason : CP/BACK/SHOULDERPAIN Blood Pressure : / mmHG Vent. Rate : 062 BPM Atrial Rate : 062 BPM P-R Int : 152 ms QRS Dur : 072 ms QT Int : 374 ms P-R-T Axes : 015 070 087 degrees QTc Int : 379 ms Normal sinus rhythm Septal infarct , age undetermined T wave abnormality, consider anterior ischemia Abnormal ECG Confirmed by EVENS MAURICIO ([id number]), newspaper managing editor HAL CHIU ([id number]) on 01/24/2019 1:40:04 PM Referred By: ANA/POLY Confirmed By:EVENS MAURICIO
[2019-01-18] MEDS: oxyCODONE 5 MG Tablet PO (11:06)
--- NOTE | 2019-01-18 11:45 | ED.DCSUM_ITS ---
History of Present Illness Chief Complaint: Chest Pain Informant: Patient Onset: Weeks - 3 Timing: Continuous Current Severity: Moderate Maximum Severity: Moderate Narrative: Patient will follow symptoms for a few weeks, there constant. He is trying to take ibuprofen and it does not work. He was recently seen had a CTA and showed a subclavian occlusion however he has left back pain. He has no chest pain. It is worse with movement or twisting. He says it has not improved in 3 weeks. He has no fever chills cough congestion or weight loss. He continues to smoke. Past Medical History - Allergies and Home Meds Allergies/Adverse Reactions: Allergies povidone-iodine [From Betadine] Allergy (Verified 01/06/19 09:07) Rash soap [From Betadine] Allergy (Verified 01/06/19 09:07) Rash Primary Care Physician: Glenn Parekh MD [Primary Care Provider] - Past Medical History: - - Noncontributory or as in HPI Surgical History: noncontributory Smoking Status: Current every day smoker Review of Systems All systems negative except as indicated General: Denies: Fever Cardiovascular: Denies: Chest pain Respiratory: Denies: Dyspnea, Cough Genitourinary: Denies: Dysuria Musculoskeletal: Reports: Back pain Skin: Denies: Rash Neurological: Denies: Headache, Weakness Endocrine: Denies: Polyuria Hematologic: Denies: Easy bruising Physical Exam Vital Signs/Narrative: Vital Signs Temp Pulse Resp BP Pulse Ox 01/18/19 10:12 98.0 F 85 18 135/105 H 99 General: Well nourished, Well developed Eyes: Perrl, EOMI Neck: Supple Cardiovascular: Regular rate, Regular rhythm Respiratory: No distress Abdomen: Soft, Nontender Back: - - There is tenderness over the left thoracic region, it is quite reproducible. It is worse with twisting turning and palpating in that region. Extremities: Nontender, No edema Skin: Normal color Neurological: Alert, Oriented x3 Psychological: Normal affect Diagnostic/Tx/Re-eval - Medical Decision Making Is chronic, he had a CT which is unremarkable including no PE. This is reproducible pain. Will treat with analgesia and he is to follow-up. Discharge stable condition ED Disposition - Plan for ED Patient: Disposition: Home or Assisted Living Instructions: CHEST WALL PAIN, Costochondritis Prescriptions: Hydrocodone Bitart/Apap 5-325 [[place] 5MG-325MG] 1 tab PO Q4H PRN PRN 2 Days #10 tab PRN Reason: Pain Prescription Printed Referrals: Glenn Parekh MD [Primary Care Provider] -
== END 2019-01-18 12:44 | disposition home or self-care (01) ==
PROVIDERS: Emergency Provider Emergency Medicine; Family Provider Family Medicine; PCP Family Medicine
DX: M94.0 Chondrocostal junction syndrome [Tietze] (principal)
CPT/HCPCS: 93005; 99283

== ENCOUNTER 2019-01-26 12:46 | Emergency (ER) | payer MEDICARE, SELFPAY ==
[2018-12-15 13:42] VITALS: BMI 28.6
[2019-01-26 12:47] VITALS: BP 87/54; PULSE 67; RESP 14; TEMP 36.6; O2SAT 100; BMI 25.2
--- NOTE | 2019-01-26 13:39 | EKG12_ITS ---
Test Reason : FALL Blood Pressure : / mmHG Vent. Rate : 067 BPM Atrial Rate : 067 BPM P-R Int : 140 ms QRS Dur : 074 ms QT Int : 402 ms P-R-T Axes : 016 064 078 degrees QTc Int : 424 ms Normal sinus rhythm Septal infarct , age undetermined T wave abnormality, consider anterior ischemia Abnormal ECG Confirmed by ROBERTO ANDERSON, EARL ([id number]), book editor RICHARD BRUNER ([id number]) on 02/01/2019 2:17:13 PM Referred By: POLY Confirmed By:EARL MEJIA MD
--- NOTE | 2019-01-26 13:39 | CT_ITS ---
STUDY: CT BRAIN WITHOUT CONTRAST REASON FOR EXAM: Male, 58 years old. Add injury due to a fall. The patient is on Plavix. RADIATION DOSAGE (If Supplied By Facility): CTDIvol = ( 44.99 ) mGy, DLP = ( 863.60 ) mGycm TECHNIQUE: Transaxial CT imaging of the brain was performed without administration of intravenous contrast material. Individualized dose optimization techniques were used for this CT. COMPARISON: Comparison is made with prior study December 13, 2018. FINDINGS: Normal soft tissue structures. Normal calvarium. Normal size ventricles and extra-axial spaces for the patient's age. Normal white matter tracts of the cerebral hemispheres. Normal basal ganglia and thalami. Normal brainstem. Normal cerebellum. There is no intracranial hemorrhage. There are no findings of an acute ischemic infarction. Mild mucosal thickening of the left sphenoid sinus. CT/Brain/Head without Contrast IMPRESSION: No acute abnormality is seen. Electronically Signed: Martín Escudero, at 14:29 EST , Service support ,
--- NOTE | 2019-01-26 13:40 | RAD_ITS ---
STUDY: X-RAY - LEFT SHOULDER REASON FOR EXAM: Male, 58 years old. Pain following a fall. TECHNIQUE: 4 view(s) of the shoulder. COMPARISON: None. FINDINGS: Normal glenohumeral articulation. Normal acromioclavicular joint. Normal acromion. Normal humeral head and visualized proximal humerus. The soft tissue structures are unremarkable. Normal visualized pulmonary apex. RAD/Shoulder min 2 Views IMPRESSION: Normal x-ray examination of the shoulder. Electronically Signed: Martín Escudero, at 14:31 EST , Service support ,
--- NOTE | 2019-01-26 13:42 | ED.VISSUMM ---
- ER Visit Summary Date of Service: 01/26/19 Chief Complaint:. Then fell hitting his head and going down about 9 steps causing left shoulder and upper back pain. History of Present Illness: The patient is a 58 M status post GA within the last month. Also restarted on blood pressure medications. States felt lightheaded his blood pressures been running borderline to low. Today was coming down the steps felt somewhat lightheaded and fell hitting his head on the steps and his left shoulder and upper back. Denies any LOC. He is currently on Plavix due to cardiac stent. He denies any chest pain, shortness of breath or abdominal pain. He did not injure his other extremities. Physical Examination: Male his initial blood pressure is 87/54. Afebrile. Pulse ox on percent room air no signs of hypoxia. He is in no severe distress. H EENT exam pupils are round reactive light extra motions are intact. There is no laceration. No blood. No large hematoma. He does have some mild tenderness to his posterior scalp. C-spine nontender. Trachea midline. Lungs clear to auscultation bilaterally. Heart regular rhythm rate about 70 no murmur. Chest wall nontender. Abdomen soft nontender. Pelvic girdle intact. He has mild tenderness to his left shoulder but he is able to do flexion and extension and elevation of his left shoulder. There is no gross bony deformity. There is no obvious dislocation. Otherwise his left upper arm from the distal humerus, elbow, forearm, wrist and hand are unremarkable neurovascular intact. Right upper extremity both lower extremities are nontender with normal range of motion. Back is tender over diffuse area over his thoracic spine. There is no obvious bony deformity or bruising. Neurologically is awake and alert. No focal motor deficits. Test Results: CBC White count is 9. Hemoglobin 10 which is around his baseline anemia. Electrolytes unremarkable. BUN 29 creatinine 1.5 chronic renal insufficiency. Lactate 0.8. EKG sinus rhythm rate 67 no acute signs of GA, ischemia or dysrhythmia. Chest x-ray shows no acute abnormality. Normal cardiac silhouette. Normal mediastinum. Normal vomiting or nausea. Left shoulder x-ray 2 views showed no acute GA. CT of the brain showed no acute abnormality. No bleed. Read by the radiologist and reviewed by me. Emergency Department Course and Treatment: Patient hypotensive with a fall. Complaint left shoulder and upper back pain. Clinically I think he may be hypotensive from his blood pressure medication that may have caused his fall. I do not think he has any acute bleeding or any intra-abdominal pathology. We will obtain screening labs and give the patient IV fluids. Repeat exam patient is doing well at 1452 PM. He looks clinically well. After nearly a liter of fluid current blood pressure is 137/71. I went over all x-ray results, CAT scan labs with him. He is comfortable being discharged home. Patient was ambulated by nursing staff he did well. He was not lightheaded. He and I discussed holding his blood pressure medication. Check his blood pressures twice daily and follow-up with his doctor. They may have to adjust his medications he may be slightly overmedicated. He will restart it if his systolic blood pressures consistently running over 140. Treatment Plan: Log his blood pressure twice daily. Hold his blood pressure medication currently. Head injury instructions. Follow-up with your doctor. Disposition: dc Impression: Transient hypotension Acute fall fell down 9 steps. Head injury on Plavix Left shoulder contusion This note was generated with [employer] dictation software. It may contain incorrect words, spelling, and punctuation that were not noted in review of the chart prior to signing ED Disposition - Plan for ED Patient: Referrals: Glenn Parekh MD [Primary Care Provider] -
--- NOTE | 2019-01-26 13:47 | RAD_ITS ---
STUDY: X-RAY CHEST REASON FOR EXAM: Male, 58 years old. History of fall. TECHNIQUE: Single AP portable view of the chest. COMPARISON: Comparison is made with prior study January 01, 2019. FINDINGS: EKG electrodes are seen. The lungs are clear and expanded. There is no demonstrated pleural abnormality. Normal size heart. Normal mediastinum and max. Normal visualized pulmonary arteries. Normal visualized aortic arch and descending thoracic aorta. Normal visualized thoracic spine. Normal visualized ribs, clavicles, and shoulders. There is no demonstrated abnormality of the visualized soft tissue structures of the upper abdomen. RAD/Chest PA and Lateral IMPRESSION: Normal x-ray examination of the chest. Electronically Signed: Martín Escudero, at 14:32 EST , Service support ,
[2019-01-26 14:02] VITALS: BP 103/53; PULSE 63; RESP 18; O2SAT 100
[2019-01-26 14:05] LABS: Absolute Lymphocyte Count 1.98 X10^3/uL (0.83-4.51); Basophil# 0.05 X10^3/uL; Basophil% 0.5 % (0-1); Eosinophil# 0.57 X10^3/uL; Hematocrit 31.2 % (40-54); Hemoglobin 10.2 g/dL (13.0-16.5); Lymphocyte # 1.98 X10^3/ul (4.0); Mean Corp Hgb Conc 32.7 g/dL (32-36); Mean Corpuscular Hgb 31.1 pg (27.0-32.0); Mean Corpuscular Volume 95.1 fL (80-94); Mean Platelet Vol. 10.9 fl (6.2-12.0); Monocyte# 0.72 X10^3/uL; Monocyte% 7.6 % (0-10); NRBC Flagged by Analyzer 0 % (0-5); Neutrophil # 6.02 X10^3/uL (2.7-7.7); Neutrophil % 63.9 % (47-70); Platelet Count 236 K/mm3 (150-450); RBC Distribution Width CV 14.2 % (11.6-14.6); RBC Distribution Width SD 49.6 fl (35.1-43.9); Red Blood Count 3.28 M/mm3 (4.6-6.2); White Blood Count 9.4 K/mm3 (4.4-11.0)
[2019-01-26 14:13] LABS: Anion Gap 4 (5-15); BUN 29 mg/dL (7-18); BUN/Creat Ratio 19.3 RATIO (10-20); Calcium,Total 9.3 mg/dL (8.5-10.1); Chloride 108 mmol/L (98-107); EST Glomerular Filtration Rate 51 mL/min (>60); Est Glom Filt Rate - Afr Amer 62 mL/min (>60); Estimated Creatinine Clearance 49.03 ml/min; Glucose 88 mg/dL (74-106); Potassium 4.5 mmol/L (3.5-5.1); Sodium Level 137 mmol/L (136-145)
[2019-01-26 14:22] LABS: Lactic Acid 0.8 mmol/L (0.4-2.0)
[2019-01-26] MEDS: HYDROcodone Bitartrate/Apap 5/325 Tablet PO (14:23)
[2019-01-26] MEDS: 0.9% Normal Saline 1,000 ML 1000 ML IV (14:26)
--- NOTE | 2019-01-26 15:07 | ED.DEP ---
ED Disposition - Plan for ED Patient: Disposition: Home or Assisted Living Instructions: HEAD INJURY, No Wake-Up (Adult) Referrals: Glenn Parekh MD [Primary Care Provider] - As soon as possible Additional Instructions: Your blood pressure for now. Log your blood pressure twice daily. If your upper number the systolic numbers consistently 140 or higher restart your blood pressure medication. Follow-up with your primary care physician to have them reevaluate your blood pressure medications. You may need to be stopped or the dose lowered. Your left shoulder x-ray was unremarkable today but if it continues to have pain you may need an MRI. Return if severe headache or intractable vomiting. The CAT scan of your brain today was normal. Ice all sore areas. Tylenol for pain
[2019-01-26 15:15] VITALS: BP 123/61
== END 2019-01-26 15:17 | disposition home or self-care (01) ==
PROVIDERS: Emergency Provider Emergency Medicine; Family Provider Family Medicine; PCP Family Medicine
DX: I95.9 Hypotension, unspecified (principal); S09.90XA Unspecified injury of head, initial encounter; S40.012A Contusion of left shoulder, initial encounter; W10.9XXA Fall (on) (from) unspecified stairs and steps, initial encounter; Y93.9 Activity, unspecified; Y92.9 Unspecified place or not applicable; I25.2 Old myocardial infarction; N18.9 Chronic kidney disease, unspecified; D64.9 Anemia, unspecified; I25.10 Atherosclerotic heart disease of native coronary artery without angina pectoris; Z95.5 Presence of coronary angioplasty implant and graft; Z79.02 Long term (current) use of antithrombotics/antiplatelets; Z79.82 Long term (current) use of aspirin; Z79.899 Other long term (current) drug therapy; Z87.891 Personal history of nicotine dependence
CPT/HCPCS: 70450; 71046; 73030; 80048; 83605; 85025; 93005; 96360; 99285; J7030; A4216

== ENCOUNTER → 2019-03-29 14:22 | Outpatient (CLI) | payer MEDICARE, SELFPAY ==
[2018-12-15 13:42] VITALS: BMI 28.6
--- NOTE | 2019-03-29 14:23 | ECHOD_ITS ---
Reason For Study: CAD Procedure This was a 2D Doppler, Color Flow transthoracic echocardiogram. Exam performed in department. Left Ventricle Normal size and thickness. The estimated ejection fraction is 65 %. Normal diastology for age. No regional wall motion abnormalities noted. Right Ventricle Mildly dilated right ventricle. Normal systolic function. Atria Normal left atrium. Normal right atrium. Normal atrial septum. Mitral Valve The mitral valve is structurally normal. No prolapse or stenosis seen. Tricuspid Valve Normal tricuspid valve. Trivial tricuspid valve insufficiency. Right ventricular systolic pressure estimated to be 35 mmHg. Aortic Valve Trisinus/trileaflet aortic valve. Normal aortic valve. Pulmonic Valve Normal pulmonic valve. Great Vessels Normal aortic root. Normal arch. Normal inferior vena cava. Inferior vena cava collapse with sniff. Pericardium/Pleural No pericardial effusion. MMode/2D Measurements & Calculations LVIDd: 4.4 cm IVSd: 0.85 cm Ao root diam: 3.1 cm LVIDs: 2.7 cm LVPWd: 0.89 cm RVDd: 4.1 cm FS: 39.0 % LAV(MOD-bp): 60.4 ml LA A4 area: 18.7 cm2 LA dimension(2D): 3.7 cm LAV(MOD-bp) Indexed: 33.2 ml/m2 LAV(MOD-sp2): 66.7 ml LAV(MOD-sp4): 54.7 ml RA A4 area: 16.2 cm2 Time Measurements MV dec time: 0.24 sec Doppler Measurements & Calculations MV E max derrick: 109.2 cm/sec Lat Peak E' Derrick: 11.1 cm/sec Med Peak E' Derrick: 8.6 cm/sec MV A max derrick: 66.5 cm/sec E/E' lat: 9.8 E/E' med: 12.7 MV E/A: 1.6 Ao V2 max: 170.2 cm/sec LV V1 max: 168.4 cm/sec TR max derrick: 259.3 cm/sec Ao max P.6 mmHg LV V1 max P.3 mmHg TR max P.0 mmHg Interpretation Summary The estimated ejection fraction is 65 %. Normal diastology for age. Mildly dilated right ventricle. Trivial tricuspid valve insufficiency. Right ventricular systolic pressure estimated to be 35 mmHg. Compared to echo report dated 12/10/2018 his LV function has gone from 35% to 65%, and RVSP has increased from 22 to 35 mmHg but still within normal limits. Ordering Physician: Peter Vazquez Referring Physician: IVONNE EDMONDSON Performed By: Dora Harvey, TIFFANYCS, RVT
== END ==
PROVIDERS: Family Provider Family Medicine; PCP Family Medicine; Referring Provider Internal Medicine Cardiovascular Disease; Visit Provider Internal Medicine Cardiovascular Disease
DX: I25.10 Atherosclerotic heart disease of native coronary artery without angina pectoris (principal); I25.2 Old myocardial infarction; I49.01 Ventricular fibrillation; Z95.5 Presence of coronary angioplasty implant and graft
CPT/HCPCS: 93306

== ENCOUNTER 2019-04-27 10:24 | Emergency (ER) | payer MEDICARE, MEDICAID, SELFPAY ==
[2018-12-15 13:42] VITALS: BMI 28.6
[2019-04-27 10:25] VITALS: BP 103/64; PULSE 62; RESP 18; TEMP 36.1; O2SAT 98; BMI 27.4
--- NOTE | 2019-04-27 11:15 | ED.DCSUM_ITS ---
- ER Visit Summary Date of Service: 04/27/19 Chief Complaint: Back pain History of Present Illness: The patient is a 58 M history of prior MA with cardiac stent and prior anemia. Patient's had prior back pain. He is never had back surgery. He has had a prior MRI. States the last couple days he awoke wit h back pain.. Very stiff. Eyes any fall, injury or trauma. No fever. No chest or abdominal pain. He is on no blood thinners. He denies any weakness in his lower extremities. He denies any new numbness. No bowel or bladder incontinence. Physical Examination: Middle-aged male no acute distress vital signs stable afebrile. He is sitting on the edge of the bed bent over. H EENT exam unremarkable. Neck nontender. Lungs clear to auscultation bilaterally. Heart regular rhythm no murmur. Abdomen soft nontender normal bowel sounds no peritoneal signs. No pulsatile mass. Both upper and lower extremities are neurovascular intact 5-5 texturing machine fixer change. Dorsi plantarflexion intact equal symmetrical. No medial thigh sensation. No cauda equina or saddle anesthesia. Negative straight leg raise. Back exam he has lumbar paraspinal soft tissue tenderness consistent with muscle spasm. There is no spine tenderness. No signs of trauma. Neurologic exam he has no motor or significant sensory deficits. Test Results: None Emergency Department Course and Treatment: History and exam are consistent recurrent back pain for muscle spasms. Treated with p.o. Valium and IM Toradol. Treatment Plan: Valium at home. 14 no refill. Motrin. Warm soaks, hot shower and massage. Follow-up as needed. Disposition: Discharge Impression: Acute low back pain secondary paralumbar muscle spasms This note was generated with [employer] dictation software. It may contain incorrect words, spelling, and punctuation that were not noted in review of the chart prior to signing ED Disposition - Plan for ED Patient: Referrals: Glenn Parekh MD [Primary Care Provider] -
--- NOTE | 2019-04-27 11:19 | ED.DEP ---
ED Disposition - Plan for ED Patient: Disposition: Home or Assisted Living Instructions: BACK PAIN (Acute or Chronic), BACK SPASM, No Trauma Prescriptions: Diazepam [Valium] 5 mg PO 4X/DAY PRN PRN 5 Days #20 tab PRN Reason: Muscle Spasm Prescription Printed Referrals: Glenn Parekh MD [Primary Care Provider] - 3-5 Days if not improving Additional Instructions: Bath, massage. Motrin for pain and inflammation. Valium as a muscle relaxant. Do not drive or drink alcohol when using the Valium. Follow-up with your primary care physician.
[2019-04-27] MEDS: diazePAM 5 MG Tablet 10 MG PO (11:34)
[2019-04-27] MEDS: Ketorolac 60 MG/2 ML Vial IM (11:35)
== END 2019-04-27 11:38 | disposition home or self-care (01) ==
LOC: ED 11:23
PROVIDERS: Emergency Provider Emergency Medicine; PCP Family Medicine
DX: M62.830 Muscle spasm of back (principal); M54.5 Low back pain; G89.29 Other chronic pain; I25.10 Atherosclerotic heart disease of native coronary artery without angina pectoris; Z72.0 Tobacco use; Z79.899 Other long term (current) drug therapy; I25.2 Old myocardial infarction; Z86.2 Personal history of diseases of the blood and blood-forming organs and certain disorders involving the immune mechanism; Z95.5 Presence of coronary angioplasty implant and graft
CPT/HCPCS: 96372; 99283

== ENCOUNTER 2019-05-01 10:06 | Emergency (ER) | payer MEDICARE, MEDICAID, SELFPAY ==
[2018-12-15 13:42] VITALS: BMI 28.6
[2019-05-01 10:06] VITALS: BP 95/66; PULSE 75; RESP 16; TEMP 36.4; O2SAT 100; BMI 26.8
--- NOTE | 2019-05-01 10:21 | ED.VIS.BACK ---
History of Present Illness Chief Complaint: Back Informant: Patient Onset: Days Context: Gradual Onset Injury: - - No history of trauma Timing: Continuous Quality: Dull, Aching, Throbbing Location: Lumbar, Right Leg - Anterior from the proximal anterior right thigh to the distal anterior right thigh Current Severity: Severe Maximum Severity: Severe Worsened by: improves with: Movement, Ambulation, Bending, Lifting Relieved by: Nothing Associated Symptoms: - - Denies numbness or tingling. He reports radiation to the right leg anterior. The pain does not radiate from the back anteriorly along the L3 or L4 dermatome. He specifically states the pain starts anteriorly proximal thigh to the distal anterior right thigh. He denies fever or chills. He denies bowel or bladder dysfunction. He denies saddle paresthesia or anesthesia. He states he is in a hospital bed because he is not permitted to go up and down steps since he had a recent AL. Unable to determine if his knee sol going up or down steps. He denies foot drop. Narrative: Patient is a middle-age male who states he had a recent MRI at [facility]. There is no evidence of MRI in the past 12 months. There was a CT of the abdomen and pelvis and there was comment that there are no osseous structure abnormalities noted. X-ray was reviewed and there is no significant pathology. This CT was performed less than 4 months ago. He denies fever, chills night sweats. Denies weight gain or weight loss. Patient did not ask questions that were asked. He insisted on pain medicine and specifically asked for [place]. Prior similar symptoms: Yes, With Prior Back Pain Recent Illness/Hospitalization: Yes - She was seen April 27, [address] Ángel Irwin - Past Medical History (1) Arteriosclerosis of coronary artery in patient with history of myocardial infarction Status: Chronic (2) STEMI (ST elevation myocardial infarction) Status: Chronic (3) Stented coronary artery Status: Chronic Comment: The patient is status post emergent angioplasty and drug-eluting stenting to his mid LAD with balloon only angioplasty to the ostium of the diagonal branch. Left circumflex and RCA showed minimal nonobstructive coronary disease. LVEF was 35%. This was superimposed on V. fib arrest at home, requiring 1 defibrillation. The patient is status post intra-aortic balloon pump, which was removed on 12/12/2018. (4) Tobacco abuse Status: Chronic (5) Upper GI hemorrhage Status: Suspected (6) Metabolic encephalopathy Status: Resolved (7) Ventricular fibrillation Status: Resolved Past Medical History - Allergies and Home Meds Allergies/Adverse Reactions: Allergies povidone-iodine [From Betadine] Allergy (Verified 05/01/19 10:07) Rash soap [From Betadine] Allergy (Verified 05/01/19 10:07) Rash Primary Care Physician: Glenn Parekh MD [Primary Care Provider] - Prior records reviewed: Yes Surgical History: noncontributory Lives: Alone Smoking Status: Current every day smoker Alcohol: Rare Drugs: None Review of Systems General: Denies: Chills, Fever, Malaise, Subjective, Sweats, Weight loss Cardiovascular: Denies: Chest pain, Palpitations Respiratory: Denies: Dyspnea, Cough, Dyspnea on exertion Gastrointestinal: Denies: Abdominal pain, Nausea, Vomiting, Diarrhea, Melena, Hematochezia Genitourinary: Denies: Dysuria, Hematuria, Frequency Musculoskeletal: Reports: Back pain, Extremity Pain Skin: Denies: Rash, Wounds Neurological: Denies: Headache, Weakness, Parasthesia, Numbness, -, - Endocrine: Denies: Polyuria, Polydipsia Hematologic: Denies: Easy bruising, Easy bleeding Allergy: Denies: Uticaria, Swelling of the mouth Physical Exam Vital Signs/Narrative: Vital Signs Temp Pulse Resp BP Pulse Ox 05/01/19 10:06 97.5 F L 75 16 95/66 100 Inital Vital Signs reviewed: Yes General: Well nourished, Well developed, Unkempt, - - Patient is sitting upright on the edge of the bed. He had similar presentation when seen on April 27, 2019. Head: Normocephalic, Atraumatic Back: Normal Inspection, Paraspinal Tenderness, Negative SLR - Right - Patient complained of pain in a patchy distribution anteriorly with straight leg raise. There was no pain along the distribution of the sciatic nerve., Negative SLR - Left. Negative for: Nontender, Surgical Scar, Spinal tenderness, CVA tenderness Extremeties: Nontender, No edema, Strong Pulses - 2+ DP and PT pulse. Patient still has hair noted on his toes., Symmetric. Negative for: Tenderness, Edema Skin: Normal color, No rash, No Trauma. Negative for: Cyanosis, Diaphoresis, Jaundice Neuro: Alert, Oriented, Normal Strength, Normal Sensation, Normal DTR - 2+ patella and ankle and symmetric with no clonus or Babinski sign, Normal Reflexes, Normal Cerebellar. Negative for: Normal Gait - There is no foot drop. Patient is hunched over complaining of pain., Weakness - Patient is able to walk on heels and toes. Patient is able to perform a 1 legged squat right and left lower extremity Reflexes: Negative for: Right Clonus, Right Babinski, Left Clonus, Left Babinski Psychological: Depressed Diagnostic/Tx/Re-eval - Medical Decision Making There were no osseous structure abnormalities noted on CT that was performed less than 4 months ago and patient has a normal neurologic and vascular exam and straight leg test is negative he was treated with Toradol. He reports that the Valium is not helping. He requested opiate analgesia. Patient was reassessed at 1130. He is sitting at the edge of the bed hunched over. He reports no improvement. Patient was informed based on his history, physical exam and review of prior records there is nothing more to offer. Recommend anti-inflammatory since there is no contraindication and follow-up with his doctor for management of his pain. ED Disposition - Plan for ED Patient: Disposition: Home or Assisted Living Diagnosis: Right-sided low back pain without sciatica Instructions: BACK PAIN (Acute or Chronic) Referrals: Glenn Parekh MD [Primary Care Provider] - Keep Thi appointment
[2019-05-01] MEDS: Ketorolac 15 MG/ML Vial IV (10:37)
[2019-05-01 11:46] VITALS: BP 129/72; PULSE 69; RESP 17
== END 2019-05-01 11:47 | disposition home or self-care (01) ==
PROVIDERS: Emergency Provider Emergency Medicine; PCP Family Medicine
DX: M54.5 Low back pain (principal); I25.10 Atherosclerotic heart disease of native coronary artery without angina pectoris; F17.200 Nicotine dependence, unspecified, uncomplicated; Z79.899 Other long term (current) drug therapy; Z88.8 Allergy status to other drugs, medicaments and biological substances; I25.2 Old myocardial infarction; Z95.5 Presence of coronary angioplasty implant and graft
CPT/HCPCS: 96374; 99283; A4216

== ENCOUNTER 2019-06-29 09:24 | Emergency (ER) | payer MEDICARE, MEDICAID, SELFPAY ==
[2018-12-15 13:42] VITALS: BMI 28.6
[2019-06-29 09:25] VITALS: BP 120/67; PULSE 74; RESP 29; TEMP 36.2; O2SAT 99; BMI 26.6
--- NOTE | 2019-06-29 09:39 | EKG12_ITS ---
Test Reason : SOB Blood Pressure : / mmHG Vent. Rate : 065 BPM Atrial Rate : 065 BPM P-R Int : 136 ms QRS Dur : 080 ms QT Int : 394 ms P-R-T Axes : 027 067 040 degrees QTc Int : 409 ms Normal sinus rhythm Normal ECG Confirmed by ECHO ANDERSON, MUSA ([id number]), video editor HAL CHIU ([id number]) on 07/01/2019 9:33:47 AM Referred By: KATHY Confirmed By:USAMA DODGE MD
--- NOTE | 2019-06-29 09:41 | ED.VIS.GEN ---
History of Present Illness Chief Complaint: Shortness of Breath Detail of Chief Complaint: Shortness of breath, chest congestion, cough Informant: Patient Onset: Days - 2 days Context: Gradual Onset Current Severity: Moderate Maximum Severity: Moderate Narrative: Patient presents with a 2-day history of chest congestion and cough. He states he is bringing up green-colored sputum. He does feel like he is wheezing. He denies having fever or chills. He does describe some chest pressure. He is a long-term smoker and is not sure if he is ever been diagnosed with COPD. He does not use inhalers at home. He denies sinus pressure, ear pain, or sore throat. - Past Medical History (1) STEMI (ST elevation myocardial infarction) Status: Resolved (2) Stented coronary artery Status: Chronic Comment: The patient is status post emergent angioplasty and drug-eluting stenting to his mid LAD with balloon only angioplasty to the ostium of the diagonal branch. Left circumflex and RCA showed minimal nonobstructive coronary disease. LVEF was 35%. This was superimposed on V. fib arrest at home, requiring 1 defibrillation. The patient is status post intra-aortic balloon pump, which was removed on 12/12/2018. (3) Upper GI hemorrhage Status: Resolved (4) Ventricular fibrillation Status: Resolved (5) Back pain Status: Chronic Past Medical History - Allergies and Home Meds Allergies/Adverse Reactions: Allergies povidone-iodine [From Betadine] Allergy (Verified 06/29/19 09:25) Rash soap [From Betadine] Allergy (Verified 06/29/19 09:25) Rash Primary Care Physician: Glenn Parekh MD [Primary Care Provider] - Prior records reviewed: Yes Surgical History: noncontributory Lives: Spouse/ Significant Other Smoking Status: Current every day smoker Review of Systems General: Denies: Chills, Fever Eyes: Denies: Visual changes - bilaterally ENT: Denies: Bilateral ear pain, Sore throat Cardiovascular: Reports: Chest pain Respiratory: Reports: Dyspnea, Cough, Sputum Gastrointestinal: Denies: Abdominal pain, Nausea, Vomiting, Diarrhea Genitourinary: Denies: Dysuria Musculoskeletal: Reports: Back pain. Denies: Swelling, Extremity Pain Skin: Denies: Rash Neurological: Denies: Headache Allergy: Denies: Uticaria Physical Exam Vital Signs/Narrative: Vital Signs Temp Pulse Resp BP Pulse Ox 06/29/19 09:25 97.2 F L 74 29 H 120/67 99 Inital Vital Signs reviewed: Yes General: Well nourished, Well developed Head: Normocephalic ENT: Moist mucous membranes Neck: Supple Cardiovascular: Regular rate, Regular rhythm Respiratory: No distress, CTA bilaterally, - - Slightly diminished air movement the bilateral bases. Abdomen: Soft, Nontender Back: - - Paraspinal lumbar tenderness Extremities: Nontender Skin: Normal color Neurological: Alert, Oriented x3 Psychological: Normal affect Diagnostic/Tx/Re-eval Impressions Chest X-Ray 06/29/19 09:45 IMPRESSION: No acute abnormality is seen. Electronically Signed: Martín Presleyleanne, at 10:27 EDT , Service support , 06/29/19 09:45 Chest 1 View (Portable) [RAD] Stat Laboratory Results 06/29/19 06/29/19 09:40 09:40 WBC 13.7 H RBC 3.76 L Hgb 11.8 L Hct 35.8 L MCV 95.2 H MCH 31.4 MCHC 33.0 RDW Std Deviation 47.1 H RDW Coeff of [place] 13.3 Plt Count 238 MPV 11.5 Immature Gran % (Auto) 1.200 H Neut % (Auto) 80.4 H Lymph % (Auto) 9.3 L [place] % (Auto) 7.2 Eos % (Auto) 1.4 Baso % (Auto) 0.5 Absolute Neuts (auto) 11.0 H Absolute Lymphs (auto) 1.27 Nucleated RBC % 0 Sodium 140 Potassium 3.9 Chloride 109 H Carbon Dioxide 24.0 Anion Gap 7 BUN 20 H Creatinine 1.39 H Estim Creat Clear Calc 54.82 Est GFR (MDRD) Af Amer 68 Est GFR (MDRD) Non-Af 56 L BUN/Creatinine Ratio 14.4 Glucose 127 H Calcium 9.5 Troponin I < 0.015 - EKG Initial EKG Interpretation: Sinus Rhythm - Sinus at 65 with no acute ischemia. - Medical Decision Making On repeat evaluation patient is resting comfortably. His respiratory rate is 17 at the time of my re-eval. He is given albuterol MDI with spacer as well as Zithromax. We did discuss the possibility of Covid 19 and patient is given instructions for self monitoring at home. He will be given a prescription for [place] to help with back pain. ED Disposition - Plan for ED Patient: Disposition: Home or Assisted Living Diagnosis: Bronchitis, Lumbar spine strain Instructions: ED Upper Resp Infec Abx Tx, ED Back Pain Acute or Chronic Prescriptions: Hydrocodone Bitart/Apap 5-325 [[place] 5MG-325MG] 1 tablet PO Q6H PRN PRN 3 Days #10 tablet PRN Reason: Pain Transmission Status: Sent to [facility] Azithromycin [Zithromax] 250 mg PO DAILY #4 tab Transmission Status: Pending to [facility] Referrals: Glenn Parekh MD [Primary Care Provider] - 3-5 Days if not improving
[2019-06-29 09:42] VITALS: BP 131/91; PULSE 68; PULSE 69; RESP 22; RESP 28; TEMP 36.2; O2SAT 99
--- NOTE | 2019-06-29 09:45 | RAD_ITS ---
STUDY: X-RAY CHEST REASON FOR EXAM: Male, 58 years old. COUGH, SOB; -- H/O MO, STENT TECHNIQUE: Single AP portable view of the chest. COMPARISON: Comparison is made with prior study dated January 26, 2019. FINDINGS: EKG electrodes are seen. Scattered calcified granulomas. The lungs are clear. There is no demonstrated pleural abnormality. Normal size heart. Normal mediastinum and max. Normal visualized pulmonary arteries. Normal visualized aortic arch and descending thoracic aorta. There are degenerative changes of the visualized thoracic spine. Normal visualized ribs, clavicles, and shoulders. There is no demonstrated abnormality of the visualized soft tissue structures of the upper abdomen. RAD/Chest 1 View (Portable) IMPRESSION: No acute abnormality is seen. Electronically Signed: Martín Escudero, at 10:27 EDT , Service support ,
[2019-06-29 09:54] LABS: Absolute Lymphocyte Count 1.27 X10^3/uL (0.83-4.51); Basophil# 0.07 X10^3/uL; Basophil% 0.5 % (0-1); Eosinophil# 0.19 X10^3/uL; Eosinophils% 1.4 % (0-5); Hematocrit 35.8 % (40-54); Hemoglobin 11.8 g/dL (13.0-16.5); Lymphocyte # 1.27 X10^3/ul (4.0); Lymphocyte % 9.3 % (19-41); Mean Corpuscular Hgb 31.4 pg (27.0-32.0); Mean Corpuscular Volume 95.2 fL (80-94); Mean Platelet Vol. 11.5 fl (6.2-12.0); Monocyte# 0.99 X10^3/uL; Monocyte% 7.2 % (0-10); NRBC Flagged by Analyzer 0 % (0-5); Neutrophil # 10.99 X10^3/uL (2.7-7.7); Neutrophil % 80.4 % (47-70); Platelet Count 238 K/mm3 (150-450); RBC Distribution Width CV 13.3 % (11.6-14.6); RBC Distribution Width SD 47.1 fl (35.1-43.9); Red Blood Count 3.76 M/mm3 (4.6-6.2); White Blood Count 13.7 K/mm3 (4.4-11.0)
[2019-06-29 10:17] LABS: Anion Gap 7 (5-15); BUN 20 mg/dL (7-18); BUN/Creat Ratio 14.4 RATIO (10-20); Calcium,Total 9.5 mg/dL (8.5-10.1); Chloride 109 mmol/L (98-107); Creatinine, Serum 1.39 mg/dL (0.70-1.30); EST Glomerular Filtration Rate 56 mL/min (>60); Est Glom Filt Rate - Afr Amer 68 mL/min (>60); Estimated Creatinine Clearance 54.82 ml/min; Glucose 127 mg/dL (74-106); Potassium 3.9 mmol/L (3.5-5.1); Sodium Level 140 mmol/L (136-145)
[2019-06-29 10:34] VITALS: BP 168/63; PULSE 66; RESP 24; O2SAT 100
[2019-06-29] MEDS: INHALER, ASSIST DEVICES 1 EACH SPACER INHALATION (10:59)
[2019-06-29] MEDS: Azithromycin 250 MG Tablet 500 MG PO (11:01)
[2019-06-29 11:18] VITALS: BP 158/72; PULSE 73; RESP 16; O2SAT 100
== END 2019-06-29 11:20 | disposition home or self-care (01) ==
PROVIDERS: Emergency Provider Emergency Medicine; PCP Family Medicine
DX: J40 Bronchitis, not specified as acute or chronic (principal); S39.012A Strain of muscle, fascia and tendon of lower back, initial encounter; X58.XXXA Exposure to other specified factors, initial encounter; F17.200 Nicotine dependence, unspecified, uncomplicated; I25.2 Old myocardial infarction; Z88.8 Allergy status to other drugs, medicaments and biological substances; Z95.5 Presence of coronary angioplasty implant and graft
CPT/HCPCS: 71045; 80048; 84484; 85025; 93005; 99285

== ENCOUNTER 2019-07-04 15:06 | Emergency (ER) | payer MEDICARE, MEDICAID, SELFPAY ==
[2018-12-15 13:42] VITALS: BMI 28.6
[2019-07-04 15:08] VITALS: BP 102/61; PULSE 54; RESP 18; TEMP 36; O2SAT 99
[2019-07-04 15:09] VITALS: BP 102/61; PULSE 54; RESP 18; TEMP 36; O2SAT 99; BMI 26.9
[2019-07-04 15:22] VITALS: BP 138/60; PULSE 54; RESP 18; O2SAT 99
--- NOTE | 2019-07-04 15:46 | RAD_ITS ---
STUDY: X-RAY CHEST REASON FOR EXAM: Male, 58 years old. COUGH, CHEST PAIN, SHORTNESS OF BREATH, DX W/BRONCHITIS LAST WEEK, HX HTN, PR TECHNIQUE: PA and lateral views of the chest. COMPARISON: 06/29/2019 FINDINGS: The lungs are clear and expanded. There is no demonstrated pleural abnormality. Normal size heart. Normal mediastinum and max. Normal visualized pulmonary arteries. Normal visualized aortic arch and descending thoracic aorta. Normal visualized thoracic spine. Normal visualized ribs, clavicles, and shoulders. There is no demonstrated abnormality of the visualized soft tissue structures of the upper abdomen. RAD/Chest PA and Lateral IMPRESSION: Normal x-ray examination of the chest. Electronically Signed: Bruno Champion MD at 16:28 EDT Tel , Service support ,
[2019-07-04 17:00] VITALS: BP 124/44; PULSE 53; O2SAT 100
--- NOTE | 2019-07-04 17:01 | ED.VISSUMM ---
- ER Visit Summary Date of Service: 07/04/19 Chief Complaint: [Cough] History of Present Illness: The patient is a 58 M [presents to the emergency department with a cough that started over a week ago. Patient was seen in the emergency department and started on prednisone and a Z-Janusz. Patient states the cough is actually improving. He does not feel short of breath. He denies any chest discomfort other than from the coughing and he complains of pain in his back and that is the main reason he is here today. Patient had a teleconference with his primary care physician and was advised to get reevaluated. He is not had any fevers. Patient has history of chronic back pain. Patient denies any pain going down his legs. He denies any paresthesias. He denies any saddle anesthesia. He denies loss of bowel or bladder function. He is not had any sick contacts. No exposures to novel coronavirus as far as he knows.] Patient just finished his prednisone today. Physical Examination: [HEENT-PERRLA, EOMI. Cranial nerves II through XII grossly intact. TMs clear. Mucous membranes moist. No adenopathy. Cardiovascular-regular rate and rhythm without murmur or ectopy Lungs-good aeration bilaterally. Patient has some faint expiratory wheezes. No accessory muscle use or retractions. Back exam-patient has some diffuse tenderness over the thoracic and lumbar paraspinal musculature bilaterally. He has negative straight leg raises. Deep tendon reflexes are plus 2 out of 4 bilaterally at the patella and Achilles. Patient has normal 5 extension. Abdomen-normoactive bowel sounds, soft, nontender, no rebound or rigidity, no peritoneal signs. Extremities-intact ?4, normal range of motion, normal pulses, atraumatic] Test Results: [Repeat chest x-ray obtained was normal.] Emergency Department Course and Treatment: [] Treatment Plan: [She will be given a prescription for few [place] for severe pain. Patient advised to follow-up with his primary care physician in 7 to 10 days. Patient advised to return if increasing shortness of breath or condition should worsen anyway. Patient understands that he does not meet criteria for normal coronavirus testing at this time as it is reserved for mostly hospitalized patients.] Disposition: [Discharged home in stable condition] Impression: [Asthmatic bronchitis] Back pain This note was generated with [employer] software. It may contain incorrect words, spelling, and punctuation that were not noted in review of the chart prior to signing ED Disposition - Plan for ED Patient: Referrals: Glenn Parekh MD [Primary Care Provider] -
--- NOTE | 2019-07-04 17:04 | ED.DEP ---
ED Disposition - Plan for ED Patient: Instructions: ED Bronchitis Asthmatic, ED Spasm Back No Trauma Prescriptions: cycloBENZAPRine HCl [Flexeril] 10 mg PO TID PRN #20 tab PRN Reason: Muscle Spasm Prescription Printed Hydrocodone Bitart/Apap 5-325 [[place] 5MG-325MG] 1 tab PO Q4H PRN PRN 2 Days #10 tab PRN Reason: Pain Prescription Printed Referrals: Glenn Parekh MD [Primary Care Provider] - 10-14 Days if not better
[2019-07-04 17:31] VITALS: O2SAT 100
== END 2019-07-04 17:33 | disposition home or self-care (01) ==
LOC: ED 15:46
PROVIDERS: Emergency Provider Emergency Medicine; PCP Family Medicine
DX: M54.9 Dorsalgia, unspecified (principal); G89.29 Other chronic pain; J45.909 Unspecified asthma, uncomplicated; Z79.899 Other long term (current) drug therapy
CPT/HCPCS: 71046; 99282

== ENCOUNTER 2022-03-12 12:39 | Emergency (ER) | payer MEDICARE, MEDICAID, SELFPAY ==
[2018-12-15 13:42] VITALS: BMI 28.6
[2022-03-12 12:40] VITALS: BP 103/60; PULSE 71; RESP 15; TEMP 36.7; O2SAT 100; BMI 28.4
--- NOTE | 2022-03-12 13:18 | EDS_ITS ---
HPI History of Present Illness Chief Complaint: Back Informant: patient Narrative Narrative: Increasing left upper thoracic pain after moving luggage out of a car 3 days ago. He traveled from [place] he was doing fine until he moved to [facility]. Symptoms worse with movement. No dyspnea. No chest pains. No pain down the legs. History of STEMI in the past with coronary stent 2019 when he lived here. He moved to [place]. He is visiting grandchildren. He is able to ambulate. Using Tylenol. [facility] Medical History Anoxic brain injury Arteriosclerosis of coronary artery in patient with history of myocardial infarction (12/10/18) Degenerative disc disease, lumbar Hyperlipidemia Metabolic encephalopathy STEMI (ST elevation myocardial infarction) Tobacco abuse Upper GI hemorrhage Ventricular fibrillation Home Medications atorvastatin 80 mg tablet 80 mg PO QHS #90 tabs 03/14/19 [Rx Last Taken 06/29/19] carvedilol 3.125 mg tablet 3.125 mg PO BID #180 tabs 03/14/19 [Rx Last Taken 06/29/19] lisinopril 10 mg tablet 10 mg PO DAILY #90 tabs 03/14/19 [Rx Last Taken 06/29/19] potassium chloride 20 mEq tablet,extended release(part/cryst) 20 meq PO DAILY #90 tabs 03/14/19 [Rx Last Taken 06/29/19] ticagrelor 90 mg tablet 90 mg PO BID #180 tabs 04/27/19 [Rx Last Taken 06/29/19] cyclobenzaprine 10 mg tablet 10 mg PO TID PRN Muscle Spasm #20 tabs 07/04/19 [Rx Last Taken Unknown] sildenafil 100 mg tablet (Viagra) 100 mg PO DAILY PRN sexual activity #10 tabs 09/02/19 [Rx Last Taken Unknown] diazepam 5 mg tablet (Valium) 5 mg PO TID PRN muscle spasm #12 tabs 03/12/22 [Rx Last Taken Unknown] Allergy/AdvReac Type Severity Reaction Status Date / Time povidone-iodine Allergy Rash Verified 09/02/19 14:54 [From Betadine] soap [From Betadine] Allergy Rash Verified 09/02/19 14:54 Family History Mother Diabetes Hypertension Surgical History History of tonsillectomy Stented coronary artery (12/10/18) Social History Smoking Status: Never smoker quit status: considering quitting alcohol intake: never substance use type: does not use caffeine: Yes Type: carbonated beverages Number of servings: 6 ROS ROS ED Constitutional Constitutional ED: Denies chills, fever(s) or sweats Eyes Eyes: Denies change in vision ENT ENT ED: Denies dysphagia or sore throat Cardiovascular Cardiovascular: Denies chest pain, leg edema, palpitations or racing heartbeat Respiratory/Chest Respiratory/Chest: Denies cough, dyspnea or dyspnea on exertion Gastrointestinal Gastrointestinal: Denies abdominal pain, diarrhea, nausea or vomiting Genitourinary Genitourinary ED: Denies dysuria, hematuria or urinary frequency Musculoskeletal Musculoskeletal: Reports back pain; Denies extremity pain or neck pain Integumentary Denies rash or wounds Neurologic Neurologic: Denies headache(s), paresthesias or weakness EXAM Physical Exam Const Vital Signs: 03/12/22 12:40 03/12/22 13:26 Temperature 98.0 F 97.8 F Temperature Source Temporal Pulse Rate 71 78 Respiratory Rate 15 16 Blood Pressure 103/60 115/78 Blood Pressure Mean 74 Pulse Ox 100 99 Oxygen Delivery Method Room Air Positive well nourished and well developed General Appearance ED: well developed and NAD HEENT Reports moist mucous membranes normocephalic and atraumatic Eyes PERRL, EOMs intact bilaterally and conjunctivae normal General Eye ED: Yes normal appearance of both eyes Neck no lymphadenopathy and supple General: Negative for tenderness Chest Wall Chest: Negative for tenderness Resp normal respiratory effort and normal air movement Effort and Inspection: symmetric chest movement; Negative for respiratory distress Cardio regular rate, regular rhythm and no murmurs Peripheral Pulses: pulses 2+ throughout GI normal to inspection, nondistended, normoactive bowel sounds and non-tender Palpation: Negative for guarding or rebound tenderness present Back/Spine no CVA tenderness Back/Spine Narrative: Reproducible left lateral thoracic tenderness. Straight leg test was negative. Extremity normal to inspection General Extremety ED: Negative for edema or tenderness General Extremity: Negative for edema Neuro oriented x3 and no sensory deficits noted Sensorium / Orientation: awake and alert Skin no rashes or lesions noted and no wounds MDM MDM MDM Narrative Medical decision making narrative: Patient history a concerns for muscle spasms with symptoms occurring after moving luggage. He had recent travel however not short of breath not tachycardic 100% room air, low clinical suspicion for PE. He would like symptomatic treatment. Drove himself here. Continue Tylenol prescription for Valium sent to the pharmacy for him to [employer]. Return precaution discussed. Otherwise outpatient follow-up. All questions were answered. Discharge Plan Triage Chief Complaint: Back ED Provider: Nathan Martinez Dx/Rx/DC Orders Clinical Impression: Spasm of thoracic back muscle, Back pain Instructions: ED Back Spasm, No Trauma Prescriptions: New diazepam [Valium] 5 mg tablet 5 mg PO TID PRN (Reason: muscle spasm) Qty: 12 0RF No Action sildenafil [Viagra] 100 mg tablet 100 mg PO DAILY PRN (Reason: sexual activity) Qty: 10 0RF Rx Instructions: administer 30 minutes to 4 hours before activity cyclobenzaprine 10 MG tablet 10 mg PO TID PRN (Reason: Muscle Spasm) Qty: 20 0RF lisinopril 10 mg tablet 10 mg PO DAILY Qty: 90 3RF potassium chloride 20 mEq tablet,ER particles/crystals 20 meq PO DAILY Qty: 90 3RF carvedilol 3.125 mg tablet 3.125 mg PO BID Qty: 180 3RF atorvastatin 80 mg tablet 80 mg PO QHS Qty: 90 3RF ticagrelor 90 mg tablet 90 mg PO BID Qty: 180 3RF Primary Care Provider: Care Physician,No Primary Referrals: Care Physician,No Primary [Primary Care Provider] - Activity Restrictions/Additional Instructions: Continue Tylenol every 6 hours. Use Valium as needed as prescribed. Follow-up with your doctor. Return if any worsening symptoms. Disposition Disposition: Home, Self Care Discharge Date/Time: 03/12/22 13:27
[2022-03-12 13:26] VITALS: BP 115/78; PULSE 78; RESP 16; TEMP 36.6; O2SAT 99
== END 2022-03-12 13:27 | disposition home or self-care (01) ==
PROVIDERS: Emergency Provider Emergency Medicine; Visit Provider Emergency Medicine
DX: M62.830 Muscle spasm of back (principal); I25.10 Atherosclerotic heart disease of native coronary artery without angina pectoris; M54.6 Pain in thoracic spine; I25.2 Old myocardial infarction; Z95.5 Presence of coronary angioplasty implant and graft
CPT/HCPCS: 99282

== ENCOUNTER 2022-03-17 10:27 | Emergency (ER) | payer MEDICARE, MEDICAID, SELFPAY ==
[2018-12-15 13:42] VITALS: BMI 28.6
[2022-03-17 10:27] VITALS: BP 113/77; PULSE 97; RESP 18; TEMP 36.6; O2SAT 69; BMI 28.2
[2022-03-17] MEDS: Ondansetron 4 MG/2 ML Vial IV (10:59)
[2022-03-17] MEDS: Ketorolac 15 MG/ML Vial IV (10:59)
[2022-03-17] MEDS: Morphine 4 MG/ML Syringe IV ×2 (10:59→12:18)
--- NOTE | 2022-03-17 11:50 | EDS_ITS ---
HPI History of Present Illness Chief Complaint: Back Detail of Chief Complaint: Left-sided upper, mid and lower back pain as well as posterior left thigh p Informant: patient and spouse/S.O. Onset/Context/Timing Onset: Days Context: Sudden Onset Chronic pain exacerbated by: Negative Injury: - (There is no history of trauma) Timing: Intermittent Quality: Dull and Aching Location: Thoracic (Left side) and Lumbar (Left side) Current Severity: Severe Maximum Severity: Severe Worsened by: improves with Movement, Ambulation, Bending and Lifting Relieved by: Nothing Associated Symptoms Associated Symptoms: Negative for Numbness, Tingling, Radiation to Right Leg, Radiation to Left Leg, Fever, Abdominal Pain, Dysuria, Unable to Ambulate, Unable to Transfer, Urinary Retention, Urinary Incontinence, Constipation or Fecal Incontinence Narrative Narrative: Patient is a 61-year-old male presents with left-sided back pain. There is no history of trauma. He denies respiratory or cardiac symptoms. He denies paresthesia, anesthesia or motor weakness upper lower extremity. Does complain of pain posterior left thigh. Any type of movement exacerbates his pain. He denies dysuria, frequency, urgency or hematuria. He denies bowel or bladder dysfunction. Denies saddle paresthesia or anesthesia. He denies foot drop. He denies buckling of his knees going down steps. Prior similar symptoms: With Prior Back Pain Recent Illness/Hospitalization: Yes [facility] Medical History (Updated 03/17/22 @ 13:[address] Isauro Ac MD) Anoxic brain injury Arteriosclerosis of coronary artery in patient with history of myocardial infarction (12/10/18) Degenerative disc disease, lumbar Hyperlipidemia Metabolic encephalopathy STEMI (ST elevation myocardial infarction) Tobacco abuse Upper GI hemorrhage Ventricular fibrillation Home Medications lisinopril 10 mg tablet 10 mg PO DAILY #90 tabs 03/14/19 [Rx Last Taken 06/29/19] ticagrelor 90 mg tablet 90 mg PO BID #180 tabs 04/27/19 [Rx Last Taken 06/29/19] cyclobenzaprine 10 mg tablet 10 mg PO TID PRN Muscle Spasm #20 tabs 07/04/19 [Rx Last Taken Unknown] diazepam 5 mg tablet (Valium) 5 mg PO TID PRN muscle spasm #12 tabs 03/12/22 [Rx Last Taken Unknown] hydrocodone-acetaminophen 5-325mg 5mg-325mg 1 tab PO Q6H PRN PRN Pain 3 days #10 TABLETS 03/17/22 [Rx Last Taken Unknown] Allergy/AdvReac Type Severity Reaction Status Date / Time povidone-iodine Allergy Rash Verified 03/17/22 10:30 [From Betadine] soap [From Betadine] Allergy Rash Verified 03/17/22 10:30 Family History Mother Diabetes Hypertension Surgical History History of tonsillectomy Stented coronary artery (12/10/18) Social History (Updated 03/17/22 @ 12:[address] Isauro Ac MD) household members: spouse Smoking Status: Current every day smoker tobacco type: cigarettes quit status: considering quitting alcohol intake: never substance use type: does not use caffeine: Yes Type: carbonated beverages Number of servings: 6 ROS ROS ED Constitutional Constitutional ED: Denies chills, fever(s), subjective or sweats Eyes Eyes: Denies blurry vision or change in vision ENT ENT ED: Denies ear pain, rhinorrhea or sore throat Cardiovascular Cardiovascular: Denies chest pain, orthopnea, palpitations or paroxysmal nocturnal dyspnea Respiratory/Chest Respiratory/Chest: Denies dyspnea, dyspnea on exertion, orthopnea or paroxysmal nocturnal dyspnea Gastrointestinal Gastrointestinal: Denies abdominal pain, diarrhea, nausea or vomiting Genitourinary Genitourinary ED: Denies dysuria, hematuria or urinary frequency Musculoskeletal Musculoskeletal: Reports back pain; Denies arthralgias, myalgias or neck pain Integumentary Denies Abrasions or rash Neurologic Neurologic: Denies paresthesias or weakness Hematologic/Lymphatic Hematologic/Lymphatic: Denies easy bleeding or easy bruising EXAM Physical Exam Const Vital Signs: 03/17/22 10:27 03/17/22 13:13 Temperature 97.8 F Temperature Source Temporal Pulse Rate 97 87 Respiratory Rate 18 16 Blood Pressure 113/77 115/74 Blood Pressure Mean 89 87 Pulse Ox 69 99 Oxygen Delivery Method Room Air Positive well nourished and well developed Constitutional Narrative: Patient appears uncomfortable. He is in a crouched position leaning against the wall. General Appearance ED: well developed; Negative for pallor HEENT Reports moist mucous membranes HEENT Narrative: Head is atraumatic normocephalic. Ears normal. Nares patent. Mucosa moist. Eyes PERRL and EOMs intact bilaterally General Eye ED: Negative for pale conjunctiva or scleral icterus Neck no lymphadenopathy, supple and no JVD Resp normal respiratory effort and clear to auscultation bilaterally Cardio regular rate, regular rhythm, S1 normal heart sound, S2 normal heart sound and no murmurs GI normal to inspection, nondistended, normoactive bowel sounds, soft to palpation, non-tender, non-distended and no masses Back/Spine normal to inspection; Negative for no thoracic nor lumbar tenderness Thoracic Spine / Upper Back: paraspinal muscle tenderness left (From upper to lower back.) Lumbar Spine / Lower Back: ROM limited and straight leg raise negative bilaterally Extremity normal to inspection and no clubbing, cyanosis or edema General Extremety ED: Negative for edema or tenderness General Extremity: Negative for edema Neuro oriented x3 and no sensory deficits noted Sensorium / Orientation: alert Motor Exam: strength 5/5 throughout Deep Tendon Reflexes: Rt Patellar (L4): 2+, Lt Patellar (L4): 2+, Rt Ankle (S1): 2+ and Lt Ankle (S1): 2+ Deep Tendon Reflexes Back: Rt Patellar (L4): 2+, Lt Patellar (L4): 2+, Rt Ankle (S1): 2+ and Lt Ankle (S1): 2+ Plantar Reflex: Downgoing: bilateral (There is no clonus noted.) Psych mental status grossly normal Skin no rashes or lesions noted and no wounds General Skin Exam: Negative for jaundice or pallor MDM MDM MDM Narrative Medical decision making narrative: Patient with left-sided back pain this is both upper, mid and lower. He complai ns of pain in the posterior left thigh. He denies pain in his buttocks. Denies bowel bladder dysfunction. Suspect this is muscular. Exam was limited. He was initially medicated with IV Toradol and morphine since he had no contraindication. When he was reassessed at 1148 he still was in discomfort. Distal dose of morphine was ordered. He apparently was recently seen. We will review that record and meds he was discharged with. Since he does live in [place] has had recent travel need to consider PE. PE was not considered because he has reproducible pain and pain that is worse with movement. After patient was remedicated with morphine he was reassessed at 1346. He is now sitting up in bed. He was able to ambulate with no foot drop. Is able to ambulate on heels and toes. Able to perform a 1 legged squat. Will treat for muscular low left-sided back pain. Discharge Plan Triage Chief Complaint: Back ED Provider: Isauro Ac Dx/Rx/DC Orders Clinical Impression: Acute left-sided low back pain, Arteriosclerosis of coronary artery in patient with history of myocardial infarction, Hyperlipidemia, Acute left-sided thoracic back pain Instructions: ED Back Pain (Acute or Chronic) Prescriptions: New hydrocodone-acetaminophen [hydrocodone-acetaminophen] 5-325 mg tablet 1 tab PO Q6H PRN PRN (Reason: Pain) 3 Days Qty: 10 0RF No Action cyclobenzaprine 10 MG tablet 10 mg PO TID PRN (Reason: Muscle Spasm) Qty: 20 0RF diazepam [Valium] 5 mg tablet 5 mg PO TID PRN (Reason: muscle spasm) Qty: 12 0RF lisinopril 10 mg tablet 10 mg PO DAILY Qty: 90 3RF ticagrelor 90 mg tablet 90 mg PO BID Qty: 180 3RF Primary Care Provider: Care Physician,No Primary Referrals: Care Physician,No Primary [Primary Care Provider] - Doctor,Your [Non-Staff] - 1 Week if not improving Activity Restrictions/Additional Instructions: 1. Apply ice to left side of your back 6-10 times a day 2. Avoid activity that causes you pain Disposition Disposition: Home, Self Care
[2022-03-17 13:13] VITALS: BP 115/74; PULSE 87; RESP 16; O2SAT 99
[2022-03-17 13:57] VITALS: BP 136/64; PULSE 72; RESP 16; O2SAT 99
== END 2022-03-17 13:59 | disposition home or self-care (01) ==
PROVIDERS: Emergency Provider Emergency Medicine; Visit Provider Emergency Medicine
DX: M54.50 Low back pain, unspecified (principal); M54.6 Pain in thoracic spine; M79.651 Pain in right thigh; I25.10 Atherosclerotic heart disease of native coronary artery without angina pectoris; E78.5 Hyperlipidemia, unspecified; F17.210 Nicotine dependence, cigarettes, uncomplicated; I25.2 Old myocardial infarction; Z79.02 Long term (current) use of antithrombotics/antiplatelets; Z79.899 Other long term (current) drug therapy
CPT/HCPCS: 96374; 96375; 96376; 99283; A4216; J2405